=== PATIENT | female | born 1945 | race Caucasian/White ===

== ENCOUNTER 2018-08-03 01:55 | Outpatient (CLI) | payer MEDICARE, BC, SELFPAY ==
--- NOTE | 2018-08-03 15:40 | DI.US_ITS ---
SYMPTOM/DIAGNOSIS: NODULE TO POSTERIOR RT NECK, R22.1 SOFT TISSUE ULTRASOUND OF NECK: The study reveals an avascular cystic lump in the left neck measuring 9 by 8 by 3 mm. There is an apparent tract leading from this cystic nodule to the skin surface. The findings would be most consistent with a small sebaceous cyst. These findings to be correlated with the patient's clinical status.
== END 2018-08-03 02:15 ==
PROVIDERS: PCP Nurse Practitioner Family; Visit Provider Nurse Practitioner Family
DX: R22.1 Localized swelling, mass and lump, neck (principal); L72.3 Sebaceous cyst
CPT/HCPCS: 76536

== ENCOUNTER 2018-09-01 14:47 | Outpatient (CLI) | payer MEDICARE, BC, SELFPAY ==
--- NOTE | 2018-09-01 14:06 | DI.RAD_ITS ---
SYMPTOMS/DIAGNOSIS: F/U LEFT TOTAL KNEE ARTHROPLASTY LEFT KNEE: Comparison is made with August,. There has been no change in the total knee prosthesis or surrounding bone.
== END 2018-09-01 15:07 ==
PROVIDERS: PCP Nurse Practitioner Family; Visit Provider Student in an Organized Health Care Education/Training Program
DX: M17.12 Unilateral primary osteoarthritis, left knee (principal); Z96.652 Presence of left artificial knee joint; Z47.1 Aftercare following joint replacement surgery
CPT/HCPCS: 20610; 99212; 99213; 73560; J1040

== ENCOUNTER → 2019-02-25 09:38 | Outpatient (BNVA) | payer MEDICARE, BC, SELFPAY | PROVIDERS: Referring Provider Nurse Practitioner Family; Visit Provider Student in an Organized Health Care Education/Training Program | DX: M17.11 Unilateral primary osteoarthritis, right knee (principal); M25.561 Pain in right knee | CPT/HCPCS: 20610; 99213; J1040 ==

== ENCOUNTER → 2019-05-17 08:38 | Outpatient (BNVA) | payer MEDICARE, BC, SELFPAY | PROVIDERS: PCP Nurse Practitioner Family; Referring Provider Nurse Practitioner Family; Visit Provider Nurse Practitioner Gerontology | DX: R31.29 Other microscopic hematuria (principal) | CPT/HCPCS: 81003; 99213 ==

== ENCOUNTER 2019-05-17 11:54 | Outpatient (REF) | payer MEDICARE, BC, SELFPAY ==
[2019-05-17 14:20] LABS: Bilirubin Negative (Negative); Blood Moderate (Negative); Clarity Clear (Clear); Glucose Negative (Negative); Ketones Negative (Negative); Leukocyte Esterase Negative (Negative); Nitrite Negative (Negative); Urobilinogen 0.2 EU/dL (Up TO 0.2); pH 5.5 (5-8)
[2019-05-17 14:27] LABS: Bacteria Few HPF (Negative); C & S Indicated? No; Casts Negative LPF (Negative); Crystals Negative HPF (Negative); Epithelial Cells Few HPF (Negative); Mucus Trace (Negative); WBC 0-2 HPF (0-5)
== END 2019-05-17 12:14 ==
LOC: LBN 11:54
PROVIDERS: PCP Nurse Practitioner Family; Visit Provider Nurse Practitioner Gerontology
DX: R31.29 Other microscopic hematuria (principal)
CPT/HCPCS: 81003; 81015

== ENCOUNTER 2019-09-19 02:33 | Outpatient (CLI) | payer MEDICARE, BC, SELFPAY ==
[2019-09-19 10:43] LABS: Bilirubin Negative (Negative); Blood Small (Negative); Clarity Clear (Clear); Glucose Negative (Negative); Ketones Negative (Negative); Leukocyte Esterase Negative (Negative); Nitrite Negative (Negative); Urobilinogen 0.2 EU/dL (Up TO 0.2)
[2019-09-19 10:58] LABS: Hemoglobin A1C 6.1 % (3.8-5.6)
[2019-09-19 11:06] LABS: Epithelial Cells Rare HPF (Negative); WBC Negative HPF (0-5)
[2019-09-19 11:07] LABS: Bacteria Negative HPF (Negative); C & S Indicated? No; Casts Negative LPF (Negative); Crystals Negative HPF (Negative); Mucus Negative (Negative); Other Cells Rare Transitional (Negative)
[2019-09-19 12:07] LABS: ALT 23 U/L (14-59); AST 19 U/L (15-37); Albumin 3.9 g/dL (3.4-5.0); Alkaline Phosphatase 79 U/L (46-116); Anion Gap 9.7 mmol/L (3-11); BUN 14 mg/dL (7-18); Bilirubin, Total 1.1 mg/dL (0.2-1.0); CO2 28.3 mmol/L (21.0-32.0); CREATININE 0.66 mg/dL (0.55-1.02); Calcium 9.4 mg/dL (8.5-10.1); Calculated LDL 135 mg/dL (<100); Chloride 103 mmol/L (98-107); Cholesterol 218 mg/dL (<200); Glucose 101 mg/dL (74-106); HDL Cholesterol 68 mg/dL (40-60); Potassium 4.4 mmol/L (3.5-5.1); Sodium 141 mmol/L (136-145); Total Protein 7.1 g/dL (6.4-8.2); Triglyceride 77 mg/dL (<150)
== END 2019-09-19 02:53 ==
PROVIDERS: PCP Nurse Practitioner Family; Visit Provider Nurse Practitioner Family
DX: R73.03 Prediabetes (principal); R31.29 Other microscopic hematuria; R79.89 Other specified abnormal findings of blood chemistry
CPT/HCPCS: 36415; 80053; 80061; 81003; 81015; 83036

== ENCOUNTER 2020-02-22 01:55 | Outpatient (CLI) | payer MEDICARE, BC, SELFPAY ==
--- NOTE | 2020-02-22 16:05 | DI.MAMMO_ITS ---
EXAM: MAMMO SCREENING CLINICAL HISTORY: screening, Z12.39 TECHNIQUE: Mammograms were interpreted according to the usual protocol including computer analysis w [employer] CAD system, tomosynthesis and C-view imaging. COMPARISON: 2010 through 2017 FINDINGS: The breasts are composed of heterogeneously dense fibroglandular densities, Breast Density category C . Right breast: No suspicious masses or suspicious microcalcifications are seen. No skin thickening or abnormal axillary lymph nodes are seen. There has been no significant change from prior exams. Left breast: There is asymmetric a density in the superior left breast. There are no associated calc ifications. No adenopathy or skin thickening is seen. Spot compression view is recommended for furt her evaluation. An ultrasound may also be indicated at that time. IMPRESSION: BI-RADS Category 0 - Assessment Incomplete: Need additional imaging evaluation Breast Density Category C, heterogeneously dense tissue which decreases the sensitivity of the mammog lilliana. The mammogram demonstrates the patient's breast tissue is dense. Dense breast tissue is very common a nd is not abnormal but dense breast tissue can make it harder to find cancer on a mammogram. Also, de nse breast tissue may increase breast cancer risk. This information about the result of the mammogram report was provided to the patient to raise their awareness. Use this report when you speak with the patient about their risks for breast cancer, which includes their family history. At that time, you may recommend additional screening tests (Ultrasound or MRI) as they might be useful based on their r isk. A negative radiographic report should not delay biopsy if a dominant or clinically suspicious mass is present. Up to ten percent of cancers are not identified on mammography. A negative report may reinforce clinical impression. Adenosis and dense breasts may obscure an underlying neoplasm. False positive reports average 6 to 10%.
--- NOTE | 2020-02-22 16:24 | DI.DEXA_ITS ---
EXAM: XR DEXA BONE DENSITY W/WO JORGE CLINICAL HISTORY: hx of osteopenia,last dexa 2008 TECHNIQUE: [employer] C densitometer. COMPARISON: No exams were available for comparison FINDINGS: The lateral view of the thoracic and lumbar spine shows no evidence of compression fractures. The bone mineral density measurements of the lumbar spine correspond to a total T-score of -2.4, cons istent with osteopenia. The bone mineral density measurements of the left hip correspond to a total T-score -1.4 and a femora l neck T-score of -1.7, in the osteopenic range. The bone mineral density measurements of the left forearm correspond to a total T-score of -2.0 and a T-score of the distal 3rd of -1.8, consistent with osteopenia. IMPRESSION: Osteopenia of the lumbar spine, left hip and left forearm.
== END 2020-02-22 02:15 ==
PROVIDERS: PCP Nurse Practitioner Family; Visit Provider Nurse Practitioner Family
DX: Z12.31 Encounter for screening mammogram for malignant neoplasm of breast (principal); R92.8 Other abnormal and inconclusive findings on diagnostic imaging of breast; M85.88 Other specified disorders of bone density and structure, other site; Z78.0 Asymptomatic menopausal state
CPT/HCPCS: 77063; 77067; 77080

== ENCOUNTER 2020-02-27 09:52 | Outpatient (CLI) | payer MEDICARE, BC, SELFPAY ==
--- NOTE | 2020-02-27 | DI.MAMMO_ITS ---
EXAM: MG MAMMO SCREEN CALL BACK UNI and U/S breast LT limited CLINICAL HISTORY: F/U MAMMO, ASYMMETRIC DENSITY LT BREAST. TECHNIQUE: Craniocaudal and mediolateral oblique Full Field Digital Mammography views of the left br east with Computer Aided Diagnosis followed by Tomosynthesis and left breast ultrasound. COMPARISON: Priors available for comparison FINDINGS: Mammography/Tomosynthesis: Masses/Architectural Distortion: None seen. Microcalcifictions: No suspicious pleomorphic-type are seen. Skin Thickening/Nipple Retraction: None. Left breast US: Echotexture: Normal appearance of the glandular tissue. Shadowing: No suspicious foci. Cyst: None. Solid lesions: None seen. Ductal dilation: None. IMPRESSION: 1. No evidence of malignancy is noted. 2. Six-month follow-up left mammogram is recommended for re-evaluation. 3. The findings were discussed with the patient on the date of the examination. BI-RADS Category 3 - 6 month - Probably Benign Finding: Recommend follow-up mammography in 6 months Breast Density - Category C - Heterogeneously dense The mammogram demonstrates the patient's breast tissue is dense. Dense breast tissue is very common a nd is not abnormal but dense breast tissue can make it harder to find cancer on a mammogram. Also, de nse breast tissue may increase their breast cancer risk. This information about the result of the [facility] mogram report was provided to the patient to raise their awareness. Use this report when you speak wi th the patient about their risks for breast cancer, which includes their family history. At that time , you may recommend for more screening tests (Ultrasound or MRI) as they might be useful based on the ir risk. A negative radiographic report should not delay biopsy if a dominant or clinically suspicious mass is present. Up to ten percent of cancers are not identified on mammography. A negative report may reinforce clinical impression. Adenosis and dense breasts may obscure an underlying neoplasm. False positive reports average 6 to 10%. Patient will receive a letter notifying them of these results.
== END 2020-02-27 10:12 ==
PROVIDERS: PCP Nurse Practitioner Family; Visit Provider Nurse Practitioner Family
DX: Z12.31 Encounter for screening mammogram for malignant neoplasm of breast (principal); R92.8 Other abnormal and inconclusive findings on diagnostic imaging of breast; N64.59 Other signs and symptoms in breast
CPT/HCPCS: 76642; 77063; 77067

== ENCOUNTER → 2020-04-27 09:48 | Outpatient (BNVA) | payer MEDICARE, BC, SELFPAY | PROVIDERS: PCP Nurse Practitioner Family; Referring Provider Nurse Practitioner Family; Visit Provider Student in an Organized Health Care Education/Training Program | DX: M17.11 Unilateral primary osteoarthritis, right knee (principal) | CPT/HCPCS: 20610; 99213; J1040 ==

== ENCOUNTER → 2020-05-22 14:53 | Outpatient (BNVA) | payer MEDICARE, BC, SELFPAY | PROVIDERS: PCP Nurse Practitioner Family; Referring Provider Nurse Practitioner Family; Visit Provider Nurse Practitioner Gerontology | DX: R31.29 Other microscopic hematuria (principal) | CPT/HCPCS: 81003; 99213 ==

== ENCOUNTER 2020-05-22 16:27 | Outpatient (REF) | payer MEDICARE, BC, SELFPAY ==
[2020-05-22 16:49] LABS: Bilirubin Negative (Negative); Blood Small (Negative); Clarity Clear (Clear); Glucose Negative (Negative); Ketones Negative (Negative); Leukocyte Esterase Negative (Negative); Nitrite Negative (Negative); Specific Gravity 1.015 (1.005-1.025); Urobilinogen 0.2 EU/dL (Up TO 0.2)
[2020-05-22 16:56] LABS: Bacteria Rare HPF (Negative); C & S Indicated? No; Casts Negative LPF (Negative); Crystals Negative HPF (Negative); Epithelial Cells Negative HPF (Negative); Mucus Negative (Negative); Other Cells Negative (Negative); RBC 0-2 HPF (0-2); WBC Negative HPF (0-5)
== END 2020-05-22 16:47 ==
LOC: LBN 16:27
PROVIDERS: PCP Nurse Practitioner Family; Visit Provider Nurse Practitioner Gerontology
DX: R31.29 Other microscopic hematuria (principal)
CPT/HCPCS: 81003; 81015

== ENCOUNTER 2020-08-29 02:01 | Outpatient (CLI) | payer MEDICARE, BC, SELFPAY ==
--- NOTE | 2020-08-29 14:58 | DI.MAMMO_ITS ---
EXAM: MG MAMMO DIAGNOSTIC UNI CLINICAL HISTORY: 3-6 MO F/U ABNORMAL MAMMO,R92.8,Z09. TECHNIQUE: Unilateral spot mammographic images were obtained with [employer] and util izing computer aided detection (CAD). COMPARISON: Prior mammograms dating back to 2010, the most recent being February 2020. Ultrasound February 2020 was also reviewed FINDINGS: Previously described finding in the left breast is mammographically unchanged. Benign appearance. No malignant-appearing microcalcification groups. Skin mole again noted. IMPRESSION: Stable benign findings. No radiographic evidence of malignancy. Appropriate follow-up is to keep this patient yearly mammogram schedule, this implying there next radha ateral mammogram would be into all2020, with earlier imaging if a self detected breast change is no rosa.. BI-RADS Category 2 - Benign Findings Breast Density - Category C - Heterogeneously dense Breast density Category C or D implies that the patient has dense breast tissue. Dense breast tissue can make it harder to find cancer on a mammogram. Dense breast tissue is also associated with an incr eased risk of breast cancer. This information about the result of the mammogram report was provided to the patient to raise their awareness. Use this report when you speak with the patient about their risks for breast cancer, which includes their family history. At that time, you may recommend additional screening tests (Ultrasoun d or MRI) as these tests may add significant information. A negative radiographic report should not delay biopsy if a dominant or clinically suspicious mass is present. Up to ten percent of cancers are not identified on mammography. A negative report may reinforce clinical impression. Adenosis and dense breasts may obscure an underlying neoplasm. False positive reports average 6 to 10%. Patient will receive a letter notifying them of these results.
== END 2020-08-29 02:21 ==
PROVIDERS: PCP Nurse Practitioner Family; Visit Provider Nurse Practitioner Family
DX: R92.8 Other abnormal and inconclusive findings on diagnostic imaging of breast (principal)
CPT/HCPCS: 77061; 77065; G0279

== ENCOUNTER 2020-11-01 10:26 | Outpatient (CLI) | payer MEDICARE, BC, SELFPAY ==
--- NOTE | 2020-11-01 09:45 | DI.RAD_ITS ---
EXAM: XR HIP RT COMPLETE AP PELVIS CLINICAL HISTORY: R hip pain. TECHNIQUE: 2D digital imaging was performed. COMPARISON: CR XR DEXA BONE DENSITY W/WO JORGE from 02/22/2020 FINDINGS: No evidence of pelvic or hip fracture. No obvious degenerative changes in the hips. Osteitis symphy sis pubis incidentally noted. IMPRESSION: DATA REPOSITORY: RADIATION DOSE DELIVERED:
== END 2020-11-01 10:27 | disposition home or self-care (01) ==
LOC: DIORS 10:26
PROVIDERS: PCP Nurse Practitioner Family; Referring Provider Nurse Practitioner Family; Visit Provider Student in an Organized Health Care Education/Training Program
DX: M25.551 Pain in right hip (principal); M70.61 Trochanteric bursitis, right hip
CPT/HCPCS: 99213; 73502

== ENCOUNTER → 2021-01-22 13:37 | Outpatient (BNVA) | payer MEDICARE, BC, SELFPAY | PROVIDERS: PCP Nurse Practitioner Family; Referring Provider Nurse Practitioner Family; Visit Provider Physician Assistant | DX: M17.11 Unilateral primary osteoarthritis, right knee (principal) | CPT/HCPCS: 20610; J1040 ==

== ENCOUNTER → 2021-05-28 15:24 | Outpatient (BNVA) | payer MEDICARE, BC, SELFPAY | PROVIDERS: PCP Nurse Practitioner Family; Referring Provider Nurse Practitioner Family; Visit Provider Nurse Practitioner Gerontology | DX: R31.29 Other microscopic hematuria (principal) | CPT/HCPCS: 81003; 99213 ==

== ENCOUNTER 2021-05-28 18:35 | Outpatient (REF) | payer MEDICARE, BC, SELFPAY ==
[2021-05-28 20:14] LABS: Bilirubin Negative (Negative); Blood Small (Negative); Clarity Clear (Clear); Glucose Negative (Negative); Ketones Negative (Negative); Leukocyte Esterase Negative (Negative); Nitrite Negative (Negative); Urobilinogen 0.2 EU/dL (Up TO 0.2); pH 6.5 (5-8)
[2021-05-28 20:29] LABS: Bacteria Negative HPF (Negative); C & S Indicated? No; Crystals Negative HPF (Negative); Epithelial Cells Negative HPF (Negative); Mucus Negative (Negative); RBC 0-2 HPF (0-2); WBC Negative HPF (0-5)
== END 2021-05-28 18:36 | disposition home or self-care (01) ==
LOC: LBN 18:35
PROVIDERS: PCP Nurse Practitioner Family; Visit Provider Nurse Practitioner Gerontology
DX: R31.29 Other microscopic hematuria (principal)
CPT/HCPCS: 81003; 81015

== ENCOUNTER → 2021-10-07 09:03 | Outpatient (BNVA) | payer MEDICARE, BC, SELFPAY | PROVIDERS: PCP Nurse Practitioner Family; Referring Provider Nurse Practitioner Family | DX: M17.11 Unilateral primary osteoarthritis, right knee (principal) | CPT/HCPCS: 20610; J1040 ==

== ENCOUNTER 2021-11-15 03:01 | Outpatient (CLI) | payer MEDICARE, BC, SELFPAY ==
[2021-11-15 14:05] LABS: Hemoglobin A1C 6.1 % (<5.7)
[2021-11-15 14:44] LABS: Anion Gap 6.9 mmol/L (3-11); BUN 13 mg/dL (7-18); CO2 28.1 mmol/L (21.0-32.0); CREATININE 0.6 mg/dL (0.55-1.02); Chloride 103 mmol/L (98-107); Glucose 95 mg/dL (74-106); Potassium 4.2 mmol/L (3.5-5.1); Sodium 138 mmol/L (136-145)
== END 2021-11-15 03:02 | disposition home or self-care (01) ==
PROVIDERS: PCP Nurse Practitioner Family; Visit Provider Nurse Practitioner Family
DX: R73.03 Prediabetes (principal)
CPT/HCPCS: 36415; 80048; 83036

== ENCOUNTER → 2022-04-09 01:36 | Outpatient (CLI) | payer MEDICARE, BC, SELFPAY ==
--- NOTE | 2022-04-09 16:13 | DI.MAMMO_ITS ---
Exam(s) MAMMO SCREENING EXAM: MAMMO SCREENING CLINICAL HISTORY: screening,z12.39 TECHNIQUE: Mammograms were interpreted according to the usual protocol including computer analysis w [employer] CAD system, tomosynthesis and C-view imaging. COMPARISON: FINDINGS: The breasts are heterogeneously dense. No dominant mass or clumped microcalcification is identified in either breast. The current examination is compared with previous examinations including February 2020 and there has been no gross interval change in appearance in comparison with the prior studies. IMPRESSION: No specific evidence of malignancy at this time. Routine 6 screening examinations are suggested at y early intervals due to the family history of breast carcinoma. Because of the high density of the breasts and the strong family history of breast carcinoma, additio nal screening with breast MRI or screening breast ultrasound could be considered. BI-RADS Category 1 - Negative Breast Density - Category C - Heterogeneously dense
== END ==
PROVIDERS: PCP Nurse Practitioner Family; Visit Provider Family Medicine
DX: Z12.31 Encounter for screening mammogram for malignant neoplasm of breast (principal); R92.8 Other abnormal and inconclusive findings on diagnostic imaging of breast
CPT/HCPCS: 77063; 77067

== ENCOUNTER → 2022-05-19 08:01 | Outpatient (BNVA) | payer MEDICARE, BC, SELFPAY | PROVIDERS: PCP Nurse Practitioner Family; Referring Provider Nurse Practitioner Family; Visit Provider Physician Assistant | DX: M17.11 Unilateral primary osteoarthritis, right knee (principal) | CPT/HCPCS: 20610; J1040 ==

== ENCOUNTER → 2022-06-03 15:19 | Outpatient (BNVA) | payer MEDICARE, BC, SELFPAY | PROVIDERS: PCP Nurse Practitioner Family; Referring Provider Nurse Practitioner Family; Visit Provider Nurse Practitioner Gerontology | DX: R31.29 Other microscopic hematuria (principal) | CPT/HCPCS: 81003; 99214 ==

== ENCOUNTER → 2022-10-15 08:55 | Outpatient (BNVA) | payer MEDICARE, BC, SELFPAY | PROVIDERS: PCP Nurse Practitioner Family; Referring Provider Nurse Practitioner Family; Visit Provider Physician Assistant | DX: M17.11 Unilateral primary osteoarthritis, right knee (principal) | CPT/HCPCS: 20610; J1040 ==

== ENCOUNTER → 2023-03-26 14:10 | Outpatient (BNVA) | payer MEDICARE, BC, SELFPAY | PROVIDERS: PCP Nurse Practitioner Family; Referring Provider Nurse Practitioner Family | DX: M17.11 Unilateral primary osteoarthritis, right knee (principal) | CPT/HCPCS: 20610; J1040 ==

== ENCOUNTER 2023-03-27 02:40 | Outpatient (CLI) | payer MEDICARE, BC, SELFPAY ==
[2023-03-27 09:59] LABS: Hemoglobin A1C 5.9 % (<5.7)
[2023-03-27 10:00] LABS: Anion Gap 11.3 mmol/L (3-11); BUN 14 mg/dL (7-18); CO2 23.7 mmol/L (21.0-32.0); CREATININE 0.9 mg/dL (0.55-1.02); Calcium 9.7 mg/dL (8.5-10.1); Calculated LDL 181 mg/dL (<100); Chloride 101 mmol/L (98-107); Cholesterol 277 mg/dL (<200); Estimated GFR 65.84 (mL/min/1.73m2); Glucose 143 mg/dL (74-106); HDL Cholesterol 82 mg/dL (40-60); Potassium 3.9 mmol/L (3.5-5.1); Sodium 136 mmol/L (136-145); Triglyceride 71 mg/dL (<150)
[2023-03-30 10:29] LABS: Hepatitis C Ab w Rflx HCV PCR Negative (Negative)
== END 2023-03-27 02:41 | disposition home or self-care (01) ==
LOC: LBO 02:40
PROVIDERS: PCP Nurse Practitioner Family; Visit Provider Nurse Practitioner Family
DX: E78.5 Hyperlipidemia, unspecified (principal); R73.03 Prediabetes; Z11.59 Encounter for screening for other viral diseases
CPT/HCPCS: 36415; 80048; 80061; 86803; 83036

== ENCOUNTER → 2023-04-16 00:09 | Outpatient (CLI) | payer MEDICARE, BC, SELFPAY ==
--- NOTE | 2023-04-16 07:45 | DI.DEXA_ITS ---
Exam(s) XR DEXA BONE DENSITY W/WO JORGE EXAM: XR DEXA BONE DENSITY W/WO JORGE CLINICAL HISTORY: Osteopenia, POSTMENOPAUSAL STATUS, Z78.0 TECHNIQUE: COMPARISON: CR XR DEXA BONE DENSITY W/WO JORGE from 02/22/2020 FINDINGS: Lateral Spine Image: Unremarkable. No compression deformities identified. Left hip: Total T-Score: -1.5. This compares to -1.4 on the prior examination. Total Z-Score: 0.4 T- and Z-scores: Findings are consistent with osteopenia. Lumbar Spine: Total T-Score: -2.5. This compares to -2.6 on the prior examination. Total Z-Score: 0.0 T- and Z-scores: Findings are consistent with osteoporosis. IMPRESSION: Osteoporosis in the lumbar spine.
== END ==
PROVIDERS: PCP Nurse Practitioner Family; Visit Provider Nurse Practitioner Family
DX: Z78.0 Asymptomatic menopausal state (principal); Z13.820 Encounter for screening for osteoporosis; M81.0 Age-related osteoporosis without current pathological fracture
CPT/HCPCS: 77080

== ENCOUNTER → 2023-05-21 11:30 | Outpatient (CLI) | payer MEDICARE, BC, SELFPAY ==
--- NOTE | 2023-05-21 09:15 | DI.RAD_ITS ---
Exam(s) XR HIP LT COMPLETE AP PELVIS EXAM: XR HIP LT COMPLETE AP PELVIS CLINICAL HISTORY: acute pain after fall,lt hip, m25.552. TECHNIQUE: 2D digital imaging was performed. COMPARISON: CR XR HIP RT COMPLETE AP PELVIS from 11/01/2020 FINDINGS: Two views. No evidence of pelvic nor hip fracture. No significant hip joint space narrowing. Additional latera l view of the left hip does not reveal osteophytes. Bone density normal. No osseous lesions. Osteitis symphysis pubis again noted, unchanged. IMPRESSION: No new osseous findings in the pelvis and hips. DATA REPOSITORY: RADIATION DOSE DELIVERED:
--- NOTE | 2023-05-21 09:15 | DI.RAD_ITS ---
Exam(s) XR KNEE LT 3V AP,LAT,MAGNO EXAM: XR KNEE LT 3V AP,LAT,MAGNO CLINICAL HISTORY: acute pain after fall,m25.562. TECHNIQUE: 2D digital imaging was performed. COMPARISON: CR XR knee LT 2V AP,lat from 09/01/2018 FINDINGS: 3 views Stable position alignment of the components of the prosthesis. No fracture or loosening evident. IMPRESSION: Stable satisfactory appearance. DATA REPOSITORY: RADIATION DOSE DELIVERED:
== END ==
PROVIDERS: PCP Nurse Practitioner Family; Visit Provider Nurse Practitioner Family
DX: M25.552 Pain in left hip (principal); M25.562 Pain in left knee; W19.XXXA Unspecified fall, initial encounter
CPT/HCPCS: 73562; 73502

== ENCOUNTER → 2023-06-02 15:16 | Outpatient (BNVA) | payer MEDICARE, BC, SELFPAY | PROVIDERS: PCP Nurse Practitioner Family; Visit Provider Nurse Practitioner Gerontology | DX: R31.29 Other microscopic hematuria (principal) | CPT/HCPCS: 81003; 99213 ==

== ENCOUNTER 2023-06-02 15:56 | Outpatient (REF) | payer MEDICARE, BC, SELFPAY ==
[2023-06-02 17:19] LABS: Bilirubin Negative (Negative); Blood Small (Negative); Clarity Clear (Clear); Glucose Negative (Negative); Ketones Negative (Negative); Leukocyte Esterase Negative (Negative); Nitrite Negative (Negative); Specific Gravity 1.015 (1.005-1.025); Urobilinogen 0.2 mg/dL (Up to 0.2)
[2023-06-02 17:38] LABS: Bacteria Negative HPF (Negative); C & S Indicated? No; Casts Negative LPF (Negative); Crystals Negative HPF (Negative); Epithelial Cells Rare HPF (Negative); Mucus Negative (Negative); WBC 0-2 HPF (0-5)
== END 2023-06-02 15:57 | disposition home or self-care (01) ==
LOC: LBN 15:56
PROVIDERS: PCP Nurse Practitioner Family; Visit Provider Nurse Practitioner Gerontology
DX: R31.29 Other microscopic hematuria (principal)
CPT/HCPCS: 81003; 81015

== ENCOUNTER → 2023-06-09 01:01 | Outpatient (CLI) | payer MEDICARE, BC, SELFPAY ==
--- NOTE | 2023-06-09 08:00 | DI.US_ITS ---
Exam(s) US RENAL EXAM: US RENAL CLINICAL HISTORY: hematuria,r31.29. TECHNIQUE: Rea scale, color and spectral Doppler were used. COMPARISON: CT RENAL COLIC WO CONTRAST from 10/30/2016 FINDINGS: Renal size in cm: Right: Left: Echogenicity: Normal Hydronephrosis: No Cyst or mass: No Nephrolithiasis: 4 millimeter echogenic focus mid right kidney, stone versus artifact. Bladder:Normal. Both ureteral jets were visualized. Prevoid vol: 167 cc Postvoid vol:17 cc IMPRESSION: Question of small right renal calculus versus artifact. DATA REPOSITORY:
== END ==
PROVIDERS: PCP Nurse Practitioner Family; Visit Provider Nurse Practitioner Gerontology
DX: R31.29 Other microscopic hematuria (principal); R93.429 Abnormal radiologic findings on diagnostic imaging of unspecified kidney
CPT/HCPCS: 76770

== ENCOUNTER 2023-08-21 11:34 | Outpatient (CLI) | payer MEDICARE, BC, SELFPAY ==
--- NOTE | 2023-08-21 11:00 | DI.RAD_ITS ---
Exam(s) XR KNEE RT 2V AP,LAT XR STANDING ALIGNMENT EXAM: XR STANDING ALIGNMENT CLINICAL HISTORY: TKR planning. TECHNIQUE: 2D digital imaging was performed. Standing AP views were performed from the pelvis throu gh the ankles. AP and lateral views of the right knee. COMPARISON: CR BONE LENGTH from 09/09/2017 CR XR KNEE LT 3V AP,LAT,MAGNO from 05/21/2023 CR XR KNEE RT 2V AP,LAT from 08/21/2023 FINDINGS: BONES: No acute fracture is present. No bony destructive lesion is seen. Leg length discrepancy: Minimal JOINTS: Knees: No change in appearance of left total knee prosthesis. The right knee shows mild medi al femoral tibial joint space narrowing and periarticular spurring. There is mild spurring at the ar ticular aspect of the patella. The ankle joints are unremarkable. The hip joints are unremarkable. SOFT TISSUE: Normal. IMPRESSION: Mild degenerative changes of the right knee. Left knee prosthesis is unremarkable. No significant leg length discrepancy. DATA REPOSITORY: RADIATION DOSE DELIVERED:
== END 2023-08-21 11:35 | disposition home or self-care (01) ==
LOC: DIORS 11:34
PROVIDERS: PCP Nurse Practitioner Family; Referring Provider Nurse Practitioner Family
DX: M17.11 Unilateral primary osteoarthritis, right knee (principal)
CPT/HCPCS: 20610; 73560; 77073; J1040

== ENCOUNTER → 2023-09-10 09:53 | Outpatient (BNVA) | payer MEDICARE, BC, SELFPAY | PROVIDERS: PCP Nurse Practitioner Family; Referring Provider Nurse Practitioner Family; Visit Provider Physical Therapy Assistant | DX: Z12.11 Encounter for screening for malignant neoplasm of colon (principal); Z86.010 Personal history of colon polyps ==

== ENCOUNTER 2023-09-28 06:53 | Day surgery (SDC) | payer MEDICARE, BC, SELFPAY ==
--- NOTE | 2023-09-27 16:11 | W.PM.DSUDISC ---
Date of service: 09/28/23 Time of Service: 08:12 Discharge Plan Disposition Patient Disposition: Home Condition: Good Discharge Details Reason For Visit: cystoscopy Attending Provider: Getachew Zavala Primary Care Provider: Edel Levin Home Meds and New Rx's Prescriptions: Continued esomeprazole magnesium [Nexium] 20 mg capsule,delayed release(DR/EC) 20 mg PO DAILY PRN naproxen sodium [Aleve] 220 mg capsule 220 mg PO BID PRN alendronate [Fosamax] 70 mg tablet 70 mg PO QWEEK Qty: 15 3RF zolpidem 5 mg tablet 2.5 mg PO QHS PRN (Reason: sleep) Qty: 30 0RF simethicone [Gas-X Extra Strength] 125 MG tablet,chewable 125 mg PO PRN PRN ibuprofen [Advil] 200 mg tablet 200 mg PO TID-QID PRN Discontinued bisacodyl [Dulcolax (bisacodyl)] 5 mg tablet,delayed release (DR/EC) 5 mg PO ONCE Qty: 4 0RF Rx Instructions: Take per colonoscopy instructions provided by ordering providers office polyethylene glycol 3350 17 gram/dose powder 17 g PO ONCE Qty: 238 0RF Rx Instructions: Take per colonoscopy instructions provided by ordering providers office Discharge Instructions Instructions: Diverticulosis (GEN), Colorectal Polyps (GEN), Diverticulosis Diet (GEN) Additional Instructions: Followup 1 year for urinalysis Activity:: Activity as Tolerated Diet:: As Tolerated Discharge Orders Discharge Orders: Discharge Order (Routine); Ordered 09/27/23 Ordered By: Nilay Heath DS: Diagnosis Discharge Diagnosis (1) Encounter for screening colonoscopy: Status: Acute Asessment and Plan: Follow-up on polyp results
--- NOTE | 2023-09-27 16:12 | COLE_ITS ---
Date of service: 09/28/23 Time of Service: 08:48 Colonoscopy Report Date of procedure: 09/28/23 Pre-op diagnosis general: screening colonoscopy Post-op diagnosis procedure note: other (Diverticulosis, colon polyp) Procedure: Colonoscopy Surgeon: Nilay Heath Anesthesia Type: General:No Airway Estimated blood loss (mL): 5 Pathology: other (0.25 cm flat polyp at 20 cm from the anus) Complications: None Disposition: same day Indications: Ijeoma is a 78 year old woman who needs a screening colonoscopy Prep: Miralax/Dulcolax Procedure Start Time: :48 Procedure End Time: 08:07 Retraction Time: 9 Findings: Diverticulosis, 0.25 cm polyp at 20 cm from the anus Procedure Description: General anesthesia was induced, and the patient was moved into lithotomy position for the cystoscopy procedure that would follow the colonoscopy. Great care was taken to pad the patient appropriately. I began by performing an external anorectal exam.? Perineum and skin were normal, as was the anal verge.? There was no evidence of external hemorrhoids.? Next, I performed a digital rectal exam.? I did not appreciate any abnormal findings.? Next, I advanced a colonoscope into the rectal vault.? I performed retroflexion.? This appeared normal.? Using insufflation, I then advanced the colonoscope beyond the rectal folds and into the sigmoid colon before advancing towards the cecum.? There was mostly sigmoid diverticulosis, but it did extend into the descending colon as well. Some scattered diverticula were also seen in the ascending colon.? The scope was noted to be in the cecum by identification of the ileocecal valve and appendiceal orifice.? I then began withdrawing the colonoscope using repeated irrigation as necessary for full evaluation of the colonic mucosa. Around 20 cm from the anal verge was a flat polyp. It was less than 0.25 cm in its greatest dimension. I removed it with cold forceps with minimal bleeding. ?Once the scope was withdrawn to the level of the rectum, great care was taken to examine portions of the rectal folds.? I then withdrew the colonoscope, and turned the care of the patient over to Dr. Zavala who would perform a separate cystoscopy procedure. Details that procedure can be found under his report. [place] Bowel Prep [place] Bowel Prep Right Colon: 3 Left Colon: 3 Transverse Colon: 3 Total Score: 9
[2023-09-28 06:39] VITALS: BP 151/81; PULSE 75; RESP 16; TEMP 36.8; O2SAT 98
--- NOTE | 2023-09-28 06:44 | W.PM.HP.N ---
Date of service: 09/28/23 Time of Service: 06:45 Assessment and Plan Assessment and plan (1) Microscopic hematuria: Status: Chronic Assessment and plan: We will complete her workup with cystoscopy and bilateral retrograde pyelogram History of Present Illness History of Present Illness Chief Complaint: Microscopic hematuria Narrative: This is a 78 year old woman who has a history of microscopic hematuria. He previous workup in 2018 showed no uropathology. She has had persistent microscopic hematuria since then. She has no gross hematuria. She has no history of kidney stones. She does have a history of tobacco exposure. She had a renal US in 06/08 that showed a possible nonobstructing right renal stone, but no masses. She presents for cystoscopy. Review of Systems Narrative: No fevers or chills No vision change or dysphasia No diabetes or thyroid dysfunction No shortness of breath, cough or hemoptysis No chest pain or palpitations No nausea, vomiting, hepatitis, ulcers, jaundice No seizures, strokes or peripheral neuropathy No bleeding disorders or anemia No gout PFSH All Active Problems Encounter for screening colonoscopy (Acute) Osteoporosis (Chronic) Dexa 2022, fosamax started 04/2023 Prediabetes (Chronic) Hyperlipidemia (Chronic) Insomnia (Chronic) Microscopic hematuria (Chronic) Negative cystocopy 02/2018. 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 Brother Alcohol abuse Brother No problems noted. Son No problems noted. Daughter No problems noted. Maternal Grandfather No problems noted. Maternal Grandmother Neoplasm Unknown type Type 2 diabetes mellitus Paternal Grandfather Neoplasm Unknown type Paternal Grandmother Neoplasm Unknown type Social History Smoking/Tobacco Use Status: Former Tobacco Use tobacco type: cigarettes Quit Date: 08/17/94 Second Hand Exposure: Yes Smoking risk assessment performed?: Yes Alcohol Intake: current Alcohol Intake frequency: 0-2 drinks per day Alcohol type: hard liquor Drug use: Never Substance use type: does not use Caregiver/Support person: No Household members: spouse Housing: house Communication Needs: None Do you need help understanding health information?: Never Pets and animals: No Sexually active: Yes Do you think of yourself as: straight/heterosexual Current gender identity: female What is your relationship status?: How often do you talk on the phone with friends or family?: three or more times per week How often do you get together with friends or relatives?: three or more times per week How often do you attend jewish or oriental orthodox services?: decline to answer Do you belong to any clubs or organized social groups?: yes Panel score (0-1 are the most socially isolated patients): 3 What type of physical activity do you participate in: walking and other Details: Water arobics Duration: 30-45 minutes/day Frequency: 5-6 times per week Rosalba/Religious: No preference Special rosalba needs: No Seatbelt use: always Drive intox or ride w/intox otr driver: No Additional Social history: Unable to assess privately Female Reproductive History Menstrual Menopause type: natural History History 2 Para 2 Hx # Term Pregnancies Multiple births Hx # Pregnancies Ectopic pregnancies AB induced Hx Number of Living Children 2 AB spontaneous Meds Allergies and Home Medications Allergies Allergy/AdvReac Type Severity Reaction Status Date / Time naproxen AdvReac Intermediate GI UPSET, Verified 09/28/23 06:32 DIDNT FEEL WELL ON IT temazepam AdvReac Intermediate headache Verified 09/28/23 06:32 Home Medications Medication Instructions Recorded Confirmed Type simethicone 125 mg chewable tablet 125 mg PO PRN PRN 08/19/17 09/28/23 History (Gas-X Extra Strength) esomeprazole magnesium 20 mg 20 mg PO DAILY PRN 01/23/20 09/28/23 History capsule,delayed release (Nexium) naproxen sodium 220 mg capsule 220 mg PO BID PRN 05/19/22 09/28/23 History (Aleve) alendronate 70 mg tablet (Fosamax) 70 mg PO QWEEK #15 tabs 04/30/23 09/28/23 Rx zolpidem 5 mg tablet 2.5 mg (1/2 x 5 mg) PO QHS PRN 09/21/23 09/28/23 Rx sleep #30 tabs ibuprofen 200 mg tablet (Advil) 200 mg PO TID-QID PRN 09/24/23 09/28/23 History Exam Const General: cooperative Neck Neck: supple Resp Effort & Inspection: normal respiratory effort Auscultation: clear to auscultation bilaterally Cardio Rate: regular rate Rhythm: regular rhythm GI Palpation: soft and no masses Neuro General: patient alert, patient awake and patient oriented x3 Time Spent Time spent with Patient: <40 minutes Time was spent: other
[2023-09-28] MEDS: Sulfameth/Trimeth DS TAB 1 TAB PO (06:53)
[2023-09-28] MEDS: Lactated Ringers 1,000 ML 80 ML IV (06:54)
--- NOTE | 2023-09-28 07:09 | W.ANESPRE ---
General Info Date of Service Date Performed: 09/28/23 Height: 5 ft 2 in Weight: 63.1 kg Body Mass Index (BMI): 25.4 Surgical Procedure: Operation Date: 09/28/23 10:25 Proposed Procedure Side Surgeon p Cystoscopy/Retrograde Bilateral Getachew Zavala MD s Colonoscopy Nilay Heath MD Meds Allergies and Home Medications Allergies Allergy/AdvReac Type Severity Reaction Status Date / Time naproxen AdvReac Intermediate GI UPSET, Verified 09/28/23 06:32 DIDNT FEEL WELL ON IT temazepam AdvReac Intermediate headache Verified 09/28/23 06:32 Home Medication Medication Instructions Recorded simethicone 125 mg chewable tablet 125 mg PO PRN PRN 08/19/17 (Gas-X Extra Strength) esomeprazole magnesium 20 mg 20 mg PO DAILY PRN 01/23/20 capsule,delayed release (Nexium) naproxen sodium 220 mg capsule 220 mg PO BID PRN 05/19/22 (Aleve) alendronate 70 mg tablet (Fosamax) 70 mg PO QWEEK #15 tabs 04/30/23 zolpidem 5 mg tablet 2.5 mg (1/2 x 5 mg) PO QHS PRN 09/21/23 sleep #30 tabs ibuprofen 200 mg tablet (Advil) 200 mg PO TID-QID PRN 09/24/23 Current Visit Medications: Current Medications Generic Name Dose Route Start Last Admin Trade Name Freq PRN Reason Stop Dose Admin Hyoscyamine Sulfate 0.125 mg 09/27/23 16:14 Hyoscyamine 0.125 Mg Sl/Oral/Chew SL 10/27/23 16:13 DIRECTED PRN Ringer's Solution 1,000 mls @ 80 mls/hr 09/28/23 06:00 09/28/23 06:54 IV 09/28/23 23:59 80 mls/hr INFUSION GINA Administration IV Miscellaneous Supplies 1 each 09/28/23 06:00 Iv Access IV 09/28/23 23:59 DIRECTED GINA Ondansetron HCl 4 mg 09/27/23 16:14 Ondansetron 4 Mg/2 Ml Vial IVP 10/27/23 16:13 Q4H PRN PRN Nausea / Vomiting Sodium Chloride 0 ml 09/28/23 06:00 Normal Saline Flush 10 Ml Syr IV 09/28/23 23:59 PRN PRN Sodium Chloride 0 ml 09/28/23 06:00 Normal Saline 10 Ml Vial IJ 09/28/23 23:59 DIRECTED PRN Sterile Water 0 ml 09/28/23 06:00 Water,Injection,Sterile 10 Ml Vial IJ 09/28/23 23:59 DIRECTED PRN Trimethoprim/Sulfamethoxazole 1 tab 09/28/23 06:00 09/28/23 06:53 Sulfameth/Trimeth Ds Tab PO 09/28/23 23:59 1 tab PREOP GINA Administration PFSH Active Problems Active Problems: Problem Status Onset Code Encounter for screening colonoscopy Z12.11 Osteoporosis M81.0 Prediabetes R73.03 Hyperlipidemia E78.5 Insomnia G47.00 Microscopic hematuria R31.29 Osteoarthritis of right knee M17.11 Trochanteric bursitis, right hip M70.61 Urinary, incontinence, stress female N39.3 Medical History Medical History Basal cell carcinoma Tubular adenoma of colon GERD (gastroesophageal reflux disease) Surgical History Surgical History S/P colonoscopy (01/25/18) S/P cystoscopy (02/15/18) S/P trigger finger release (01/12/18) Left thumb 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) Tobacco Smoking/Tobacco Use Status: Former Tobacco Use Passive smoking exposure: Yes Second hand exposure: Yes Alcohol Alcohol Intake: current Alcohol intake frequency: 0-2 drinks per day Alcohol type: hard liquor Substance Use Substance use: Never Substance use type: does not use Prental History History 2 Para 2 Hx # Term Pregnancies Multiple births Hx # Pregnancies Ectopic pregnancies AB induced Hx Number of Living Children 2 AB spontaneous Vital Signs and Lab Results Vital Signs Most Recent Vital Signs in EMR: Most Recent Vital Signs Temp Pulse Resp BP Pulse Ox 36.8 C 75 16 151/81 H 98 09/28/23 06:39 09/28/23 06:39 09/28/23 06:39 09/28/23 06:39 09/28/23 06:39 Lab Results Blood Type / Crossmatch: No Data to Display Complete Blood Count: No Data to Display Complete Metabolic Panel: No Data to Display Liver Function Panel: No Data to Display Coagulation Panel: No Data to Display Cardiac Panel: No Data to Display Arterial Blood Gas: No Data to Display Venous Blood Gas: No Data to Display Pancreas Panel: No Data to Display Thyroid Panel: No Data to Display Infectious Disease: No Data to Display Blood Cultures: No Data to Display Toxicology Panel: No Data to Display Anesthesia Assessment and Plan Anesthesia History Personal History: Delayed Emergence Family History: No Family History of Anesthesia Complications Exercise Tolerance Exercise Tolerance: Metabolic Equivalents>4 Pertinent Negatives Pertinent Negatives: No Symptoms of GERD, No Major Cardiovascular Symptoms or Complaints and No Major Pulmonary Symptoms or Complaints Cardiac & Pulmonary Exam Cardiac Exam: Normal S1/S2 Heart Sounds Pulmonary Exam: Clear Bilateral Breath Sounds Implantable Cardiac Device Does patient have a Pacemaker or an ICD?: No Airway Exam Known Difficult Airway: No Mallampati Class: 2 Mouth Opening: Normal (> 3cm) Thyromental Distance: Greater than 3 cm Neck Range of Motion: Full ROM Neck Circumference: Normal Teeth Condition: Normal Dentition ASA Classification ASA Score: ASA 2 Emergency Case?: No NPO Status NPO Status: NPO Clears >2 hours, Solids >8 hours Anesthesia Plan Resuscitation Status: Full Code Anesthesia Technique: General Anesthesia Airway Planned: Natural Airway Monitors Used: Standard Monitors
[2023-09-28 07:12] VITALS: BMI 25.4
--- NOTE | 2023-09-28 08:05 | BOWEL_PTH ---
PATIENT: Ijeoma Pat LOC: [facility] U#:[id number] AGE/SX: 78/F ROOM: RE09/28/[address]: Getachew Zavala MD : 1945 BED: DIS: 09/28/2023 SPEC #: [id number] RECD: 09/28/23 12:58 STATUS: OSMAN RE #: [id number] ZOEY: 09/28/23 08:[address]: Getachew Zavala DEPT: Surgical Specimen RECD BY: Vivian Burger ENTERED: 09/28/23 12:59 SP TYPE: Bowel OTHR DR: Edel Levin, GORDO Tissues: 1 - BIOPSY BOWEL Procedures: GROSS AND MICRO LEVEL 4 Comments: [id number]
[2023-09-28] MEDS: Lidocaine 2% Jelly 6 ML SYR (08:15)
[2023-09-28] MEDS: Omnipaque 300 MG/ML 50 ML BTL (08:15)
--- NOTE | 2023-09-28 08:34 | W.PM.DSUDISC ---
Date of service: 09/28/23 Time of Service: 08:35 Discharge Plan Disposition Patient Disposition: Home Condition: Good Discharge Details Reason For Visit: cystoscopy Attending Provider: Getachew Zavala Primary Care Provider: Edel Levin Home Meds and New Rx's Prescriptions: Continued esomeprazole magnesium [Nexium] 20 mg capsule,delayed release(DR/EC) 20 mg PO DAILY PRN naproxen sodium [Aleve] 220 mg capsule 220 mg PO BID PRN alendronate [Fosamax] 70 mg tablet 70 mg PO QWEEK Qty: 15 3RF zolpidem 5 mg tablet 2.5 mg PO QHS PRN (Reason: sleep) Qty: 30 0RF simethicone [Gas-X Extra Strength] 125 MG tablet,chewable 125 mg PO PRN PRN ibuprofen [Advil] 200 mg tablet 200 mg PO TID-QID PRN Discontinued bisacodyl [Dulcolax (bisacodyl)] 5 mg tablet,delayed release (DR/EC) 5 mg PO ONCE Qty: 4 0RF Rx Instructions: Take per colonoscopy instructions provided by ordering providers office polyethylene glycol 3350 17 gram/dose powder 17 g PO ONCE Qty: 238 0RF Rx Instructions: Take per colonoscopy instructions provided by ordering providers office Discharge Instructions Additional Instructions: Followup 1 year for urinalysis Activity:: Activity as Tolerated Diet:: As Tolerated Discharge Orders Discharge Orders: Discharge Order (Routine); Ordered 09/27/23 Ordered By: Nilay Heath DS: Diagnosis Discharge Diagnosis (1) Encounter for screening colonoscopy: Status: Acute
--- NOTE | 2023-09-28 08:37 | W.PM.OP ---
Date of service: 09/28/23 Time of Service: 08:37 Operative Note Operative Note DATE OF PROCEDURE: 09/28/23 PRE-OP DIAGNOSIS: microscopic hematuria POST-OP DIAGNOSIS: same PROCEDURE: cystoscopy with bilateral retrograde pyelograms SURGEON: Getachew Zavala ANESTHESIA TYPE: General:No Airway Refer to Anesthesia Record ESTIMATED BLOOD LOSS: 5 PATHOLOGY: none sent COMPLICATIONS: None Patient was transported to: same day Patient's condition: stable Implants: none Indications: This is a 78-year-old woman who has a history of microscopic hematuria. She has never had gross hematuria. She had a workup about 5 years ago that showed no significant uropathology. The urinalysis is continued to show greater than 3 red blood cells per high-power field. She presents now for repeat cystoscopy and retrograde pyelogram. She has already had a renal ultrasound that showed no solid renal mass Findings: no bladder tumor Procedure Description: The patient was given a dose of preoperative oral antibiotics and brought to the operating room on 09/28/2023. After successful induction of general anesthesia without intubation, she underwent colonoscopy. Following the colonoscopy, her genitalia was prepped and draped. 2% Xylocaine jelly was instilled into the urethra to act as a local anesthetic. A 22 Greenlandic rigid cystoscope was passed through the urethra into the bladder. The bladder was inspected using a 30 degree lens. The base of the bladder had descended somewhat consistent with a cystocele. Both ureteral orifices appeared normal with no blood coming from either side. Each orifice was then cannulated with a 5 Greenlandic access catheter. Retrograde pyelograms were obtained by injecting Omnipaque through the access catheter under fluoroscopic guidance. Both ureters and collecting systems appeared normal with no filling defects. Both sides drained promptly on a 5-minute drainage film. We then inspected the rest of the bladder using both the 30 and the 70 degree lens. No papillary or nodular lesions were seen throughout the bladder. The bladder was emptied and the scope was removed. Based on today's examination, I find no evidence of a significant uropathology.
[2023-09-28 08:40] VITALS: BP 107/63; PULSE 75; RESP 18; TEMP 36.4; O2SAT 94
--- NOTE | 2023-09-28 08:45 | DI.RAD_ITS ---
Exam(s) XR RETROGRADE IN OR EXAM: XR RETROGRADE IN OR CLINICAL HISTORY: Microscopic hematuria TECHNIQUE: 2D and realtime digital imaging was performed. CONTRAST MATERIAL: Refer to procedure report. COMPARISON: US US RENAL from 06/09/2023 FINDINGS: Fluoroscopy was provided for Dr. Zavala during the performance of a retrograde evaluation of the kandi l collecting systems. Please refer to the procedure report for complete details. Ka,r=3.14 mGy IMPRESSION: RADIATION DOSE DELIVERED:
--- NOTE | 2023-09-28 09:09 | W.ANESPOSTOP ---
Postoperative Evaluation Date, Time and Location Date Performed: 09/28/23 Time Performed: 09:09 Patient Location: Day Surgery Unit Vital Signs Most Recent Imported Vital Signs: Most Recent Vital Signs Temp Pulse Resp BP Pulse Ox 36.4 C L 75 18 107/63 94 09/28/23 08:40 09/28/23 08:40 09/28/23 08:40 09/28/23 08:40 09/28/23 08:40 Pain Score Most Recent Pain Score: Most Recent Pain Score Pain Level 0 09/28/23 08:40 Assessment Mental Status: Awake (Alert & Oriented to Patient Baseline) Airway and Respiratory Function: Patent airway with normal (patient baseline) respiratory exam Cardiovascular Function: Hemodynamically Stable Hydration Status: Adequately Hydrated Nausea & Vomiting: No Nausea or Vomiting Pain: Pt. Denies Any Pain Peripheral Nerve Block: Patient did not receive a nerve block
[2023-09-28 09:11] VITALS: BP 111/64; PULSE 61; RESP 13; TEMP 36.8; O2SAT 99
== END 2023-09-28 10:15 | disposition home or self-care (01) ==
PROVIDERS: Surgery; PCP Nurse Practitioner Family; Visit Provider Urology
PROC: (CPT 74450; principal; 2023-09-28 10:15)
PROC: 0DJD8ZZ Inspection of Lower Intestinal Tract, Via Natural or Artificial Opening Endoscopic (ICD-10-PCS; CPT 45378; 2023-09-28 10:15)
DX: R31.29 Other microscopic hematuria (principal); Z12.11 Encounter for screening for malignant neoplasm of colon; R73.03 Prediabetes; K21.9 Gastro-esophageal reflux disease without esophagitis; N39.3 Stress incontinence (female) (male); K57.30 Diverticulosis of large intestine without perforation or abscess without bleeding; K63.5 Polyp of colon
CPT/HCPCS: 45380; 52005; 88305; 74420; J1100; J1885; J2001; J2405; J2704; Q9967

== ENCOUNTER → 2024-01-28 13:44 | Outpatient (BNVA) | payer MEDICARE, BC, SELFPAY | PROVIDERS: PCP Nurse Practitioner Family; Referring Provider Nurse Practitioner Family | DX: M17.11 Unilateral primary osteoarthritis, right knee (principal) | CPT/HCPCS: 20610; J1010 ==

== ENCOUNTER 2024-03-18 02:33 | Outpatient (CLI) | payer MEDICARE, BC, SELFPAY ==
--- OUTSIDE RECORDS SUMMARY | 2024-03-18 02:50 | XMS_ITS | Encounter Summary ---
Author Organization [facility] Address [address] [place] [address] Care Team Providers Care Ultrasonic Hand Solderer Name Role Phone Unknown, Provider Primary Care Provider [phone] Encounter Details Date Type Department Care Team (Late st Contact Info) Description 01/25/2018 Results Only [facility] [phone] Catrachita Cruz MD [address] [place] [address] Social History Tobacco Use Types Packs/Day Years Used Date Smoking Tobacco: Never Assessed Sex and Gender Information Value Date Recorded Sex Assigned at Not on file Gender Identity Not on file Sexual Orientation Not on file documented as of this encounter Plan of Treatment Not on file documented as of this encounter Procedures Procedure Name Priority Date/Time Associated Diagnosis Comments SURGICAL PATHOLOGY Routine 01/25/2018 17 :07 EDT documented in this encounter Results * SURGICAL PATHOLOGY (01/25/2018 17:07 EDT) Pathology Report: SURGICAL PATHOLOGY REPORT Reports generated via electronic interface contain original data; however they are lacking the format of the original report. Caution should be taken when reading/interpret ing unformatted reports. Name: ? IJEOMA WYATT ? Accession #: ? [id number] ? : ? 1945 (Age: 72) ??F ? Collect Date: ? 01/25/2018 ? Location: ? [facility] ? Receive Date: ? 01/25/2018 ? Provider: CATRACHITA CRUZ MD Copy to: GARRETT MONCADA SEARCH MANAGER ? Final Pathologic Diagnosis: A. ??RECTUM, POLYP, POLYPECTOMY: - Tubular adenoma. ?? B. ??ASCENDING COLON POLYPS, POLYPECTOMIES: - Tubular adenoma. - Minute fragment of unremarkable colonic mucosa. ?? Document reviewed and electronically signed by: ALYSON GONZALEZ MD Report ??Date: 01/26/2018 13:33 By the signature above, the attending physician certifies that he/she has personally conducted a gross and/or microscopic examination of the described specimens and rendered or confirmed the above diagnosis. Specimen(s) Received: A. ??Rectal polyp B. ??Ascending colon polyp x2 Clinical History: H/O colon polyps Gross Description: A. ?Received in formalin labelled with proper patient identification (initials H, L) and rectal polyp is a cuba nodular tissue, 0.3 x 0.2 x 0.2 cm. Entirely submitted in A1. B. ?Received in formalin labelled with proper patient identification (initials H, L) and ascending colon polyps x2 are two cuba irregular tissues 0.2 x 0.1 x 0.1 cm and 0.2 x 0.2 x 0.1 cm. Entirely submitted in B1. WILMAN Butterfield (ASCP) 01/25/2018 5:41 PM End of Report [facility] 01/25/2018 17:0 7 EDT 01/25/2018 17:07 EDT Catrachita Cruz MD PATHOLOGY ORDERBertin GUERRERO [facility] [address] [place] [address] documented in this encounter Visit Diagnoses Not on filedocumented in this encounter Care Teams Ultrasonic Hand Solderer Relationship Specialty Start Date End Date Unknown, Provider, PCP - General 06/22/15 01/26/18 documented as of this encounter
--- OUTSIDE RECORDS SUMMARY | 2024-03-18 02:50 | XMS_ITS | Encounter Summary ---
Author Organization [facility] Address [address] [place] [address] Care Team Providers Care Travel Ot Name Role Phone Anastacia Ruby LAUNDRY OPERATOR WASH ROOM Primary Care Provider [phone] Encounter Details Date Type Department Care Team (Late st Contact Info) Description 03/27/2023 Lab Requisition [facility] Pathology & Laboratory Medicine - [address] [id number] Outr Resulting Lab, Provider Social History Tobacco Use Types Packs/Day Years Used Date Smoking Tobacco: Never Assessed Interpersonal Safety Answer Date Record ed Physically Hurt Never 03/18/2020 Verbally Threaten Not on file 03/18/2020 Sex and Gender Information Value Date Recorded Sex Assigned at Not on file Gender Identity Not on file Sexual Orientation Not on file documented as of this encounter Plan of Treatment Not on file documented as of this encounter Procedures Procedure Name Priority Date/Time Associated Diagnosis Comments HEPATITIS C AB W REFLEX TO HCV RNA BY PCR Routine 03/27/2023 9:07 EDT documented in this encounter Results * HEPATITIS C AB W REFLEX TO HCV RNA BY PCR (03/27/2023 9:07 EDT) Hep C Antibody Negative Negative 03/30/2023 10:24 EDT [facility] Blood VENOUS BLOOD / Unknown 03/27/2023 9:07 EDT 03/27/2023 17:35 EDT Provider Outr Resulting Lab CHEMISTRY & BLOOD GAS ORDERABLES [facility] [address] [place] [address] documented in this encounter Visit Diagnoses Not on filedocumented in this encounter Care Teams Travel Ot Relationship Specialty Start Date End Date Anastacia Ruby, LEANDRA PCP - General 01/27/18 documented as of this encounter
--- OUTSIDE RECORDS SUMMARY | 2024-03-18 02:50 | XMS_ITS | Clinical Summary ---
Author Organization [facility] Address [address] [place] [address] Care Team Providers Care Game And Fish Protector Name Role Phone Anastacia Ruby OPERATING ENGINEER Primary Care Provider [phone] Social History Tobacco Use Types Packs/Day Years Used Date Smoking Tobacco: Never Assessed Interpersonal Safety Answer Date Record ed Physically Hurt Never 03/18/2020 Verbally Threaten Not on file 03/18/2020 Sex and Gender Information Value Date Recorded Sex Assigned at Not on file Gender Identity Not on file Sexual Orientation Not on file Plan of Treatment Health Maintenance Due Date Last Done Comments RSV Immunization ( o r 60+ Years) (1 - 1-dose 60+ series) 2006 Fall Risk Screening 2011 COVID-19 Vaccine (2022- season) 2023 Hepatitis C Screen Completed 03/27/2023 Procedures Procedure Name Priority Date/Time Associated Diagnosis Comments HEPATITIS C AB W REFLEX TO HCV RNA BY PCR Routine 03/27/2023 9:07 EDT from Last 3 Months or Most Recently Relevant to Health Maintenance Results * HEPATITIS C AB W REFLEX TO HCV RNA BY PCR (03/27/2023 9:07 EDT) Hep C Antibody Negative Negative 03/30/2023 10:24 EDT [facility] Blood VENOUS BLOOD / Unknown 03/27/2023 9:07 EDT 03/27/2023 17:35 EDT Provider Outr Resulting Lab CHEMISTRY & BLOOD GAS ORDERABLES [facility] [address] [place] [address] from Last 3 Months or Most Recently Relevant to Health Maintenance Care Teams Game And Fish Protector Relationship Specialty Start Date End Date Anastacia Ruby OPERATING ENGINEER PCP - General 01/27/18
--- OUTSIDE RECORDS SUMMARY | 2024-03-18 02:50 | XMS_ITS | Encounter Summary ---
Author Organization [facility] Address [address] [place] [address] Care Team Providers Care Rn Birthing Name Role Phone Unavailable Primary Care Provider Unavailabl e Encounter Details Date Type Department Care Team (Late st Contact Info) Description 07/10/2009 Orders Only [facility] [address] [place] [address] Beverly Morse MD [address] [place] [address] Social History Tobacco Use Types Packs/Day Years Used Date Smoking Tobacco: Never Assessed Sex and Gender Information Value Date Recorded Sex Assigned at Not on file Gender Identity Not on file Sexual Orientation Not on file documented as of this encounter Plan of Treatment Not on file documented as of this encounter Procedures Procedure Name Priority Date/Time Associated Diagnosis Comments HPV DETECTION, HIGH RISK TYPES Routine 07/10/2009 12:21 EST CYTOPATHOLOGY Routine 07/10/2009 0:00 EST documented in this encounter Results * HUMAN PAPILLOMA VIRUS DNA TEST (07/10/2009 12:21 EST) Specimen Description Cervix, ThinPrep vial [facility] Result Negative for HPV types 16, 18, 31, 33, 35, 39, 45, 51, 52, 56, 58, 59, and 68. [facility] Report Status Final 07/25/2009 [facility] 07/10/2009 12:2 1 EST 07/19/2009 12:21 EST Beverly Morse MD MICROBIOLOGY - GENER AL ORDERABLES [facility] [address] [place] [address] * CYTOPATHOLOGY (07/10/2009 0:00 EST) Pathology Report: CYTOPATHOLOGY REPORT ? Reports generated via electronic interface contain original data; ? however they are lacking the format of the original report. ? Caution should be taken when reading/interpreti ng unformatted reports. ? Name: ? IJEOMA WYATT ? Accession #: ? [id number] ? : ? 1945 (Age: 64) ??F ?Collect Date: ? 07/10/2009 ? Location: ? [facility] ? Receive Date: ? 07/13/2009 ? Provider: ?BEVERLY MORSE MD ? Copy to: ? Specimen/Source: ?Pap Test, Cervix/Endocervix, ThinPrep Imaging System ? with manual evaluation ? Last Menstrual Period: ? Menstrual/Pregnanc y Status: ? Post Menopausal ? Hormonal/Contracep tive Status: ? Yes: Estrace ? Other: ? HPVDX - HPV testing requested regardless of diagnosis on current ThinPrep Pap ?? test. ? SPECIMEN ADEQUACY ? Satisfactory for Evaluation ? - assessment of transformation zone component not applicable ( e.g. atrophy, ? vaginal sample, hysterectomy) ? GENERAL CATEGORIZATION ? Negative for Intraepithelial Lesion or Malignancy ? Document reviewed and electronically signed by: ? Lynan Fawad, CT(ASCP) ? Report Date: ??07/18/2009 09:31 ? End of Report ? [facility] 07/10/2009 07/13/2009 Beverly Morse MD PATHOLOGY ORDERABLES Performing Organization Address City/State/[facility] Co de Phone Number [facility] [address] [place] [address] documented in this encounter Visit Diagnoses Not on filedocumented in this encounter
--- OUTSIDE RECORDS SUMMARY | 2024-03-18 02:50 | XMS_ITS | Encounter Summary ---
Author Organization [facility] Address [address] [place] [address] Care Team Providers Care Critical Care Registered Nurse Name Role Phone Unavailable Primary Care Provider Unavailabl e Encounter Details Date Type Department Care Team (Late st Contact Info) Description 10/01/1999 Results Only [facility] [address] [place] [address] Tesha Elizalde, LEANDRA Social History Tobacco Use Types Packs/Day Years Used Date Smoking Tobacco: Never Assessed Sex and Gender Information Value Date Recorded Sex Assigned at Not on file Gender Identity Not on file Sexual Orientation Not on file documented as of this encounter Plan of Treatment Not on file documented as of this encounter Procedures Procedure Name Priority Date/Time Associated Diagnosis Comments CYTOPATHOLOGY Routine 10/01/1999 10:34 EST documented in this encounter Results * CYTOPATHOLOGY (10/01/1999 10:34 EST) Pathology Report: CYTOPATHOLOGY REPORT Reports generated via electronic interface contain original data; however they are lacking the format of the original report. Caution should be taken when reading/interpreti ng unformatted reports. Name: ? IJEOMA WYATT ? Accession #: ? [id number] : ? 1945 (Age: 54) ??F ?Collect Date: ? 10/01/1999 Location: ?Receive Date: ? 10/01/1999 Provider: ?TESHA ELIZALDE NP Copy to: ?TEHSA ELIZALDE NP ? Specimen/Source: ?[facility] ThinPrep Last Menstrual Period: ? GYNECOLOGIC ??CYTOPATHOLOGY ??REPORT Name: IJEOMA WYATT L ?[facility] : 1945 ?? 54Y F ?Client ID: [id number] SS#: ? Clinician: SUSAN MOBLEY, DREW ?? Location: [facility] ??Copy to: ?? Specimen: ?[facility] ThinPrep ? Source: Cervix/Endocervix ?Collected: 09/30/99 ? Received: 10/01/1999 ?LMP: 09/09/99 ? Hormone Therapy: No ? : No ? Radiation Therapy: No ?? Post : No ?Chemotherapy: No ?IUD: No ? Prev Abnormal Pap: No ?? Clinical Hx: ?(Blank paz indicate information not provided on requisition) SPECIMEN ADEQUACY: ? Satisfactory For Evaluation ?? GENERAL CATEGORIZATION: ? WITHIN NORMAL LIMITS ? Reviewed And Electronically Signed By: ? Nakul Jane Jr., CT(ASCP) ? Report Date: ?? 10/02/1999 [facility] Archived Tests - Final Diagnosis Text Field: Clinical History : ? Document reviewed and electronically signed by: ? Conversion ? Report Date: ??10/02/1999 00:00 End of Report [facility] 10/01/1999 10:3 4 EST 10/01/1999 10:35 EST Tesha Elizalde LATHE TENDER PATHOLOGY ORDERABLES [facility] [address] [place] [address] documented in this encounter Visit Diagnoses Not on filedocumented in this encounter
--- OUTSIDE RECORDS SUMMARY | 2024-03-18 02:50 | XMS_ITS | Encounter Summary ---
Author Organization [facility] Address [address] [place] [address] Care Team Providers Care Air Conditioning Equipment Mechanic Name Role Phone Unavailable Primary Care Provider Unavailabl e Encounter Details Date Type Department Care Team (Late st Contact Info) Description 07/02/2007 Results Only [facility] [address] [place] [address] Beverly Morse MD [address] [place] [address] [place] [address] Social History Tobacco Use Types [...] Priority Date/Time Associated Diagnosis Comments CYTOPATHOLOGY Routine 07/02/2007 0:00 EST documented in this encounter Results * CYTOPATHOLOGY (07/02/2007 0:00 EST) Pathology Report: CYTOPATHOLOGY REPORT Reports generated via electronic interface contain original data; however they are lacking the format of the original report. Caution should be taken when reading/interpreti ng unformatted reports. Name: ? IJEOMA WYATT ? Accession #: ? [id number] : ? 1945 (Age: 62) ??F ?Collect Date: ? 07/02/2007 Location: ? [facility] ? Receive Date: ? 07/06/2007 Provider: ?BEVERLY MORSE MD Copy to: ? Specimen/Source: ?ThinPrep Pap Test, Cervix/Endocervix, processed on [employer] ThinPrep Imaging System, with manual evaluation Last Menstrual Period: ? Menstrual/Pregnanc y Status: ? Post Menopausal Other: ? HPVA - HPV testing requested if ASC-US on the current ThinPrep Pap test. ? SPECIMEN ADEQUACY ? Satisfactory for Evaluation - assessment of transformation zone component not applicable ( e.g. atrophy, vaginal sample, hysterectomy) GENERAL CATEGORIZATION ? Negative for Intraepithelial Lesion or Malignancy ? Document reviewed and electronically signed by: ? MIKE Wen(ASCP) ? Report Date: ??07/12/2007 11:43 End of Report ALDA GARCIA 07/02/2007 07/06/2007 Beverly Morse MD PATHOLOGY ORDERABLES Performing Organization Address City/State/[facility] Co de Phone Number ALDA GARCIA [address] [place] [address] documented in this encounter Visit Diagnoses Not on filedocumented in this encounter
--- OUTSIDE RECORDS SUMMARY | 2024-03-18 02:50 | XMS_ITS | Referral Summary ---
Author Organization [facility] Address [address] [place] [address] Care Team Providers Care Senior Oracle Adf Developer Name Role Phone Anastacia Ruby NP Primary Care Provider [phone] Social History Tobacco Use Types Packs/Day Years Used Date Smoking Tobacco: Never Assessed Interpersonal Safety Answer Date Record ed Physically Hurt Never 03/18/2020 Verbally Threaten Not on file 03/18/2020 Sex and Gender Information Value Date Recorded Sex Assigned at Not on file Gender Identity Not on file Sexual Orientation Not on file Plan of Treatment Not on file Procedures Procedure Name Priority Date/Time Associated Diagnosis Comments HEPATITIS C AB W REFLEX TO HCV RNA BY PCR Routine 03/27/2023 9:07 EDT from Last 3 Months or Most Recently Relevant to Health Maintenance Results * HEPATITIS C AB W REFLEX TO HCV RNA BY PCR (03/27/2023 9:07 EDT) Hep C Antibody Negative Negative 03/30/2023 10:24 EDT [facility] Blood VENOUS BLOOD / Unknown 03/27/2023 9:07 EDT 03/27/2023 17:35 EDT Provider Outr Resulting Lab CHEMISTRY & BLOOD GAS ORDERABLES [facility] [address] [place] [address] from Last 3 Months or Most Recently Relevant to Health Maintenance Care Teams Senior Oracle Adf Developer Relationship Specialty Start Date End Date Anastacia Ruby NP PCP - General 01/27/18
--- OUTSIDE RECORDS SUMMARY | 2024-03-18 02:50 | XMS_ITS | Encounter Summary ---
Author Organization [facility] Address [address] [place] [address] Care Team Providers Care Medical Physics Professor Name Role Phone Unknown, Provider Primary Care Provider [phone] Encounter Details Date Type Department Care Team (Latest Contact Info) Description 01/25/2018 10:35 EDT - 01/25/2018 23:59 EDT Hospital Encounter [address] [address] Unknown, Provider, Discharge Disposition: Home or Self Care Social History Tobacco Use Types Packs/Day Years Used Date Smoking Tobacco: Never Assessed Sex and Gender Information Value Date Recorded Sex Assigned at Not on file Gender Identity Not on file Sexual Orientation Not on file documented as of this encounter Discharge Disposition Disposition Code Departure Means Destination Home or Self [facility] documented in this encounter Plan of Treatment Not on file documented as of this encounter Visit Diagnoses Not on filedocumented in this encounter Care Teams Medical Physics Professor Relationship Specialty Start Date End Date Unknown, Provider, PCP - General 06/22/15 01/26/18 documented as of this encounter
--- OUTSIDE RECORDS SUMMARY | 2024-03-18 02:50 | XMS_ITS | Encounter Summary ---
Author Organization [facility] Address [address] [place] [address] Care Team Providers Care Tool Procurement Coordinator Name Role Phone Anastacia Ruby COMPUTER FORENSIC EXAMINER Primary Care Provider [phone] Encounter Details Date Type Department Care Team (Late st Contact Info) Description 09/28/2023 Lab Requisition [facility] Pathology & Laboratory Medicine - [facility] [address] [place] [address] Nilay Heath MD [address] [place] [address], [address] [place], [place] [id number] Encounter for screening for malignant neoplasm of colon; Other microscopic hematuria Social History Tobacco Use Types Packs/Day Years [...] Priority Date/Time Associated Diagnosis Comments SURGICAL PATHOLOGY Today 09/28/2023 8: 05 EST Encounter for screening for malignant neoplasm of colon Other microscopic hematuria documented in this encounter Results * SURGICAL PATHOLOGY (09/28/2023 8:05 EST) Note to Patient The following pathology results have been interpreted by your pathologist and may be available to you before your health provider has had the opportunity to review them. Please allow time for your provider to receive these results and explore management options, if applicable. 10/01/2023 17:24 [facility] Final Diagnosis A. COLON, 20 CM, POLYP, BIOPSY: - Colonic mucosa without significant diagnostic abnormality. - Deeper levels examined. 10/01/2023 17:24 [facility] Attestation By the signature below, the attending physician certifies that they have 1) personally conducted a gross and/or microscopic examination of the described specimen(s), and/or personally interpreted the results of laboratory testing of the described specimen(s), and 2) personally rendered or confirmed the above diagnosis. 10/01/2023 17:24 [facility] at 1724 Clinical History Screening colonoscopy 10/01/2023 17:24 [facility] Gross Description A. Received in formalin labelled with proper patient identification (initials H, L) and polyp @ 20 cm is a cuba-brown tissue, 0.6 x 0.2 x 0.1 cm. Entirely submitted in A1. WILMAN HOANG(ASCP) 09/28/2023 17:11 10/01/2023 17:24 [facility] Performing Lab [facility] 10/01/2023 17:24 [facility] Scanned Images 10/01/2023 17:24 [facility] Tissue COLON STRUCTURE / Unknown 09/28/2023 8:05 EST 09/28/2023 16:50 EST Nilay Heath MD PATHOLOGY ORDERABLES [facility] [address] [place] [address] documented in this encounter Visit Diagnoses Diagnosis Encounter for screening for malignant neoplasm of colon Special screening for malignant neoplasms, colon Other microscopic hematuria documented in this encounter Care Teams Tool Procurement Coordinator Relationship Specialty Start Date End Date Anastacia Ruby NP PCP - General 01/27/18 documented as of this encounter
--- OUTSIDE RECORDS SUMMARY | 2024-03-18 02:50 | XMS_ITS | Encounter Summary ---
Author Organization [facility] Address [place] [address] Care Team Providers Care Soccer Referee Name Role Phone Edel Levin APRN Primary Care Provider Encounter Details Date Type Department Care Team (Latest Contact Info) Description 06/15/2023 Travel Social History Tobacco Use Types Packs/Day Years Used Date Smoking Tobacco: Former Smokeless Tobacco: Never Alcohol Use Standard Drinks/Week Comments Yes 7 (1 standard drink = 0.6 oz pur e alcohol) Sex and Gender Information Value Date Recorded Sex Assigned at Not on file Gender Identity Not on file Sexual Orientation Not on file documented as of this encounter Plan of Treatment Upcoming Encounters Date Type Department Care Team (Late st Contact Info) Description 04/25/2024 4:00 PM EDT Office Visit Dermatology at [address] [place] [address] Gideon Olivas MD [address], [place] [address] documented as of this encounter Visit Diagnoses Not on filedocumented in this encounter Care Teams Soccer Referee Relationship Specialty Start Date End Date Edel Levin APRN [address] [facility] [address] [place], [place] [id number] PCP - General Family Medicine 09/07/18 documented as of this encounter
--- OUTSIDE RECORDS SUMMARY | 2024-03-18 02:50 | XMS_ITS | Encounter Summary ---
Author Organization [facility] [place] [address] Care Team Providers Care Director Of [employer] Name Role Phone Ollie Edel APRN Primary Care Provider [phone] Reason for Visit * Reason Comments Suture / Staple Removal Encounter Details Date Type Department Care Team (Late st Contact Info) Description 06/15/2023 1:30 PM EDT Office Visit Dermatology at [address] [place] [address] Gideon Olivas MD [address] [facility], [place] [address] Visit for suture removal Social History Tobacco Use Types Packs/Day Years Used Date Smoking Tobacco: Former Smokeless Tobacco: Never Alcohol Use Standard Drinks/Week Comments Yes 7 (1 standard drink = 0.6 oz pur e alcohol) Sex and Gender Information Value Date Recorded Sex Assigned at Not on file Gender Identity Not on file Sexual Orientation Not on file documented as of this encounter Progress Notes * Gideon Olivas MD - 06/15/2023 1:30 PM EDT Problem: Ijeoma follows up today for suture removal and biopsy results. She will be heading off tomorrow on her trip to [place]. Physical examination reveals good healing at the right lateral base of neck cyst excision site. Theright nasal lower sidewall biopsies and also appears to be healing well. Assessment and plan: Status post excision probable follicular cyst right lateral base of neck 1. Site appears to be healing well 2. Sutures removed. 3. May DC wound care instructions 4. Return to clinic in another year for repeat check. SCC versus BCC right lower nasal sidewall 1. We will notify patient of biopsy results when these are available are available 2. Return to clinic in 1 year. CC: Edel Levin APRN documented in this encounter Plan of Treatment Upcoming Encounters Date Type Department Care Team (Late st Contact Info) Description 04/25/2024 4:00 PM EDT Office Visit Dermatology at [place] [address] [place] [address] Gideon Olivas MD [address], [place] [address] documented as of this encounter Visit Diagnoses Diagnosis Visit for suture removal Encounter for removal of sutures documented in this encounter Care Teams Director Of [employer] Relationship Specialty Start Date End Date Edel Levin APRN [address] [place] [address] [place] [address] PCP - General Family Medicine 09/07/18 documented as of this encounter
--- OUTSIDE RECORDS SUMMARY | 2024-03-18 02:50 | XMS_ITS | Encounter Summary ---
Author Organization [facility] Address [facility] [place] [address] Care Team Providers Care Nursing Unit Coordinator Name Role Phone Ollie Edel APRN Primary Care Provider Reason for Visit * Reason Comments Follow-up Encounter Details Date Type Department Care Team (Late st Contact Info) Description 08/31/2023 4:15 PM EST Office Visit Dermatology at [address] [phone] Gideon Olivas MD [address] [place] [address], [place] [address] History of SCC (squamous cell carcinoma) of skin; History of basal cell carcinoma; Seborrheic keratosis Social History Tobacco Use Types Packs/Day Years [...] Progress Notes * Gideon Olivas MD - 08/31/2023 4:15 PM EST Problem: 1. Repeat skin checkup 2. History of multiple non-melanoma cutaneous malignancies. 3. 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 History BCCA right anterior rios February 2019 5. 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 She had a good trip to [place]. The right nasal sidewall biopsy has healed well. Physical examination reveals a pleasant 78-year-old woman who has a benign examination today of thehead and the neck the chest the back the hands arms forearms thighs and calves. She has several irritated seborrheic keratoses present on the anterior base of her neck. The right nasal sidewall site is healed well without evidence of recurrent SCCA. Assessment plan: Irritated seborrheic keratoses anterior base of neck 1. Could consider LN2 for the sites History of SCCA right nasal sidewall 1. No evidence of recurrence 2. Patient reassured 3. Return to clinic another 6 months for repeat check. CC: Edel Levin APRN documented in this encounter Plan of Treatment Upcoming Encounters Date Type Department Care Team (Late st Contact Info) Description 04/25/2024 4:00 PM EDT Office Visit Dermatology at [place] [address] [facility] [place] [address] Gideon Olivas MD [address], [place] [address] documented as of this encounter Visit Diagnoses Diagnosis History of SCC (squamous cell carcinoma) of skin Personal history of other malignant neoplasm of skin History of basal cell carcinoma Personal history of other malignant neoplasm of skin Seborrheic keratosis Other seborrheic keratosis documented in this encounter Care Teams Nursing Unit Coordinator Relationship Specialty Start Date End Date Edel Levin APRN [address] [place] [address] [address] [facility] [address] [place] [address] PCP - General Family Medicine 09/07/18 documented as of this encounter
--- OUTSIDE RECORDS SUMMARY | 2024-03-18 02:50 | XMS_ITS | Encounter Summary ---
Author Organization [facility] [place] [address] Care Team Providers Care Prototype Fabricator Name Role Phone AnaEdel velazquez [place] Primary Care Provider Encounter Details Date Type Department Care Team (Late Contact Info) Description 06/16/2023 Telephone Dermatology at [address] [place] [address] Martine Bryson LPN Social History Tobacco Use Types Packs/Day Years Used Date Smoking Tobacco: Former Smokeless Tobacco: Never Alcohol Use Standard Drinks/Week Comments Yes 7 (1 standard drink = 0.6 oz pur e alcohol) Sex and Gender Information Value Date Recorded Sex Assigned at Not on file Gender Identity Not on file Sexual Orientation Not on file documented as of this encounter Miscellaneous Notes * Telephone Encounter - Martine Bryson LPN - 06/16/2023 1:56 PM EDT 06/08/23 A-Right nasal sidewall, skin shave biopsy B-Right base of neck skin excision Bx: A-Nasal - SCCa B- Neck - cyst No further treatment necessary for A or B Dr. Olivas recommends follow up in three or four months. Reviewed biopsy results and Dr. Nolasco recommendations with patient. Appointment set for August 31, 2023 at 4:15. She voiced understanding. documented in this encounter Plan of Treatment Upcoming Encounters Date Type Department Care Team (Late Contact Info) Description 04/25/2024 4:00 PM EDT Office Visit Dermatology at [address] [place] [address] Gideon Olivas MD [address], [place] [address] documented as of this encounter Visit Diagnoses Not on filedocumented in this encounter Care Teams Prototype Fabricator Relationship Specialty Start Date End Date Edel Levin APRN [address] [facility] 1 [place] [address] PCP - General Family Medicine 09/07/18 documented as of this encounter
--- OUTSIDE RECORDS SUMMARY | 2024-03-18 02:50 | XMS_ITS | Encounter Summary ---
Author Organization [facility] Address [address] [place] [address] Care Team Providers Care Cotton Tipper Name Role Phone Unavailable Primary Care Provider Unavailabl e Encounter Details Date Type Department Care Team (Late st Contact Info) Description 10/31/1999 Results Only [facility] [address] [place] [address] Tesha Elizalde, LEANDRA Social History Tobacco Use [...] Date/Time Associated Diagnosis Comments SURGICAL PATHOLOGY Routine 10/31/1999 15 :46 EST documented in this encounter Results * SURGICAL PATHOLOGY (10/31/1999 15:46 EST) Pathology Report: SURGICAL PATHOLOGY REPORT Reports generated via electronic interface contain original data; however they are lacking the format of the original report. Caution should be taken when reading/interpreting unformatted reports. Name: ? IJEOMA WYATT ? Accession #: ? [id number] ? : ? 1945 (Age: 54) ??F ? Collect Date: ? 10/31/1999 ? Location: ?Receive Date: ? 10/31/1999 ? Provider: TESHA ELIZALDE NP Copy to: TESHA HANCOCK MD ? Final Pathologic Diagnosis: MICROSCOPIC DIAGNOSIS: ? Endometrium, biopsy: ? - Disordered proliferative endometrium with stromal breakdown. ? See comment. ? Comment: COMMENT: ? This case has been reviewed at intradepartmental consultation ? conference. (Dr. Marie)/tmg ?? Document reviewed and electronically signed by: Conversion for NARENDRA MARIE Report ??Date: 11/01/1999 00:00 By the signature above, the attending physician certifies that he/she has personally conducted a gross and/or microscopic examination of the described specimens and rendered or confirmed the above diagnosis. Specimen(s) Received: TISSUE SUBMITTED: CLINICAL DATA: ? Perimenopausal/alexei rhagia; LMP: 10/15/99 Gross Description: GROSS: ? Received in formalin labelled Adilia and endometrial bx are ? multiple, red-brown, slightly mucoid, soft tissue fragments ? aggregating 1.5 x 1.0 x 0.2 cm. ??The specimen is entirely ? submitted in one cassette. ??(Leroy Martini/marti End of Report ALDA GARCIA 10/31/1999 15:4 6 EST 10/31/1999 15:47 EST Tesha Elizalde NP PATHOLOGY ORDERABLES [facility] [address] [place] [address] documented in this encounter Visit Diagnoses Not on filedocumented in this encounter
--- OUTSIDE RECORDS SUMMARY | 2024-03-18 02:50 | XMS_ITS | Clinical Summary ---
Author Organization [facility] Address [facility] [place] [address] Care Team Providers Care Liner Assembler Name Role Phone Edel Levin APRN Primary Care Provider Allergies Active Allergy Reactions Criticality Noted Date Comments Naproxen Medium 11/01/2020 Other reaction(s): GI UPSET, DIDNT FEEL WELL ON IT Oxycodone [id number] 05/16/20 13 Temazepam Medium 11/01/2020 Other reaction(s): headache Medications Medication Sig Dispensed Refills Start Date End Date Status esomeprazole (NexIUM) 20 mg Capsule, Delayed Release(E.C.) Take by mouth. 01/23/2020 Active zolpidem (Ambien) 5 mg Tablet TAKE 0.5 TABLET BY MOUTH AT BEDTIME NEEDED FOR SLEEP 01/24/2021 Active alendronate (Fosamax) 70 mg tablet Take 70 mg by mouth once a week. 05/01/2023 Active Active Problems Problem Noted Date Diagnosed Date Hyperlipidemia 04/17/2022 Osteopenia 04/17/2022 Prediabetes 04/17/2022 Trochanteric bursitis, right hip 04/17/2022 Tubular adenoma of colon 04/17/2022 History of SCC (squamous cell carcinoma) of skin 02/27/2017 AK (actinic keratosis) 02/27/2017 Arthritis 05/20/2016 Family history of malignant neoplasm of breast 1 Stress incontinence in female 05/20/2016 Malignant neoplasm of skin 05/20/2016 Osteoarthritis of both knees 12/12/2015 Basal cell carcinoma 08/21/2015 Insomnia 01/25/2015 Gastroesophageal reflux disease 11/14/2014 Low back pain with sciatica 03/09/2014 History of basal cell carcinoma 05/16/2013 Seborrheic keratosis 05/16/2013 Solar lentigo 05/16/2013 Personal history of colonic polyps 09/24/2011 Colon polyp 07/16/2005 Resolved Problems Problem Noted Date Diagnosed Date Resolved Date Visit for suture removal 09/06/201511/2015 Immunizations Name Administration Dates Next Due Pneumococcal Polysaccharide (Pneumovax 23) 08/17 TD Adult 08/17/2002 Family History Medical History Relation Comments Breast Cancer Father Cancer Father Breast Cancer Mother Cancer Mother Relation Status Comments Father Mother Social History Tobacco Use Types Packs/Day Years Used Date Smoking Tobacco: Former Smokeless Tobacco: Never Alcohol Use Standard Drinks/Week Comments Yes 7 (1 standard drink = 0.6 oz pur e alcohol) Sex and Gender Information Value Date Recorded Sex Assigned at Not on file Gender Identity Not on file Sexual Orientation Not on file Last Filed Vital Signs Vital Sign Reading Time Taken Comments Blood Pressure 140/76 05/20/2016 1:46 PM EDT Pulse 68 05/20/2016 1:46 PM EDT Temperature - - Respiratory Rate 14 09/24/2011 10:25 AM EST Oxygen Saturation 98% 09/24/2011 10:25 AM EST Inhaled Oxygen Concentration - - Weight 61.2 kg (135 lb) 05/20/2016 1:46 PM EDT Height 162.6 cm (5' 4) 05/20/2016 1:46 PM EDT Body Mass Index 23.17 05/20/2016 1:46 PM EDT Plan of Treatment Upcoming Encounters Date Type Department Care Team (Late st Contact Info) Description 04/25/2024 4:00 PM EDT Office Visit Dermatology at [place] [address] [place] [address] Gideon Olivas MD [address], [place] [address] Health Maintenance Due Date Last Done Comments Hepatitis C Screening 1964 Tdap adult 1965 Zoster vaccine (1 of 2) 1996 Advance Directive 2001 Bone Density Scan 2011 Pneumoccocal Vaccine: 65+ (2 of 2 - PCV) 2011 08/17/2002 Tetanus vaccine 08/17/2012 08/17/2002 Covid-19 Vaccine (24 season) 2023 Influenza (Flu) vaccine (1 o f 1 - Influenza standard series) 04/17/2024 Colonoscopy Discontinued 09/24/2011, 09/24/2011 Colorectal Cancer Screening Discontinued Sigmoidoscopy (10 year) with FIT yearly Discontinued 0 09/24/2011, 09/24/2011 Breast Cancer screening Discontinued 04/08/2021, 11/21 CT Colonography Discontinued FIT DNA Discontinued FIT Discontinued Sigmoidoscopy Discontinued Procedures Procedure Name Priority Date/Time Associated Diagnosis Comments MAMMO SCREENING CAD AND ABHIJIT BILATERAL Routine 04/08/2021 1:09 PM EDT Visit for screening mammogram COLONOSCOPY Routine 09/24/2011 9:28 AM EST from Last 3 Months or Most Recently Relevant to Health Maintenance Results * Mammo Screening Cad and Abhijit Bilateral (04/08/2021 1:09 PM EDT) Anatomical Region Laterality Modality Breast Bilateral Mammography Narrative 04/08/2021 1:41 PM EDT BILATERAL MAMMOGRAPHY REASON FOR EXAM: Screening TECHNIQUE: CC and MLO views were obtained of each breast using standard 2-D mammography as well as 3-D tomosynthesis. Computer aided detection was used. This is compared with prior images. FINDINGS: ??The breasts are heterogeneously dense, which may obscure small masses. There are no suspicious microcalcifications, masses, or areas of distortion. The pattern is stable. CONCLUSION: No mammographic evidence of malignancy. RECOMMENDATION: Regular screening mammograms starting between age 40 and 50 reduces the risk of from breast cancer. All screening tests have both risks and benefits. These risks and benefits should be assessed for each individual patient through discussion with their provider to determine their preferred breast cancer screening schedule. Women should report any breast changes to a health care provider right away. Some women, because of their family history, a genetic tendency, or other factors, should be screened with annual breast MRI as well as with mammograms. (The number of women who fall into this category is very small). Patients and health care providers should discuss each patient? s history to decide if earlier screening and/or breast MRI are appropriate. Screening should continue as long as a woman is in good health and is expected to live 10 years or longer. Screening mammography may not detect 10-15% of breast cancers. A result letter has been sent to this patient by the [facility]. BIRADS CATEGORY 1: NEGATIVE Electronically signed by: ARIEL FORD MD Edel Huddlestonu OWNER MANAGER IMG MAMMO ORDERABLE S * COLONOSCOPY (09/24/2011 9:28 AM EST) COLONOSCOPY [facility] Endoscopy Patient Name: Ijeoma Pat ? Procedure Date: 09/24/2011 9:28 AM ? N: [id number] ? Date of : 1945 ? Age: 66 ? Order #: [id number] ? Procedure: ? Colonoscopy Indications: ? High risk colon cancer surveillance: ? Personal history of colonic polyps Providers: ? Nilay Knutson MD, Charlotte Silva, ? RN, Farshad Morse RN, Jonathan Olmos, ? Fruit Inspector Referring MD: ?Beverly Ramirez MD Medicines: ? Fentanyl 125 micrograms IV, Midazolam ? 4 mg IV, Promethazine 25 mg IV Complications: ? No immediate complications. Procedure: ? Pre-Anesthesia Assessment: ? - [place] Protocol: ? - Pre-procedure Verification: Prior ? to the procedure, the patient's ? identity was verified by full name, ? date of and medical record ? number. The patient's identity was ? verified on all pertinent medical ? records, including History and ? Physical. Also prior to the ? procedure, a History and Physical was ? performed, and patient medications, ? allergies and sensitivities were ? reviewed. The patient's tolerance of ? previous anesthesia was reviewed. The ? risks and benefits of the procedure ? and the sedation options and risks ? were discussed with the patient. All ? questions were answered and informed ? consent was obtained. ? - Marking: The correct endoscopic ? procedure was verified by verbal ? agreement. ? - Time-Out: Prior to the start of the ? procedure, the patient's ? identification, proposed procedure, ? accurate signed consent, correctly ? labeled images and records, and need ? for prophylactic antibiotics were ? verified by the physician and the ? nurse in the pre-procedure area in ? the procedure room. ? - ASA Grade Assessment: I - A normal, ? healthy patient. ? - The anesthesia plan was to use ? moderate sedation/analgesia ? (conscious sedation). ? The procedure, indications, benefits, ? risks and alternatives were explained ? to the patient. Specifically ? discussed were potential ? complications including, but not ? limited to, bleeding, perforation, ? infection, missing a cancer, and ? adverse medication reactions. The ? patient was placed in the left ? lateral decubitus position, and a ? digital rectal exam was performed. ? The Colonoscope was inserted in the ? anus and under direct visualization, ? advanced to the terminal ileum. ? Careful inspection was made as the ? colonoscope was withdrawn. The ? colonoscopy was performed with ease. ? The patient tolerated the procedure ? well. The quality of the bowel ? preparation was excellent and ? adequate to identify polyps. The ? ileocecal valve, appendiceal orifice, ? terminal ileum and rectum were ? photographed. Scope withdrawal time ? was 8 minutes. ? Findings: ? The terminal ileum appeared normal. Multiple small ? and large-mouthed diverticula were found in the ? entire colon (mostly in sigmoid colon). There was ? narrowing of the colon in association with the ? diverticulosis in the sigmoid colon. This made ? insertion of the scope difficult through this area. ? The exam was otherwise normal throughout the examined ? colon. No new polyps identified. ? Impression: ?- Diverticulosis in the entire ? examined colon. Recommendation: ?- High fiber diet (25-35 gm daily) to ? prevent worsening of diverticular ? disease. ? - Repeat colonoscopy in 5 years for ? surveillance for colon polyps. ? Attending Participation: ? I personally performed the entire procedure. ? Nilay Knutson MD 09/24/2011 10:23 AM ? Number of Addenda: 0 Note Initiated On: 09/24/2011 9:28 AM PROVATION 09/24/2011 9:28 AM EST Nilay Knutson MD GENERAL SURGICAL ORD ERABLES PROVATION from Last 3 Months or Most Recently Relevant to Health Maintenance Care Teams Liner Assembler Relationship Specialty Start Date End Date Edel Levin APRN [address] [place], [place] [id number] PCP - General Family Medicine 09/07/18
--- OUTSIDE RECORDS SUMMARY | 2024-03-18 02:50 | XMS_ITS | Encounter Summary ---
Author Organization [facility] Address [address] [place] [address] Care Team Providers Care Cigarette Vendor Name Role Phone Unavailable Primary Care Provider Unavailabl e Encounter Details Date Type Department Care Team (Late st Contact Info) Description 10/05/2000 Results Only [facility] - [facility] [address] [place] [address] Tesha Elizalde, LEANDRA Social History Tobacco Use [...] Priority Date/Time Associated Diagnosis Comments CYTOPATHOLOGY Routine 10/05/2000 0:00 EST documented in this encounter Results * CYTOPATHOLOGY (10/05/2000 0:00 EST) Pathology Report: CYTOPATHOLOGY REPORT Reports generated via electronic interface contain original data; however they are lacking the format of the original report. Caution should be taken when reading/interpreti ng unformatted reports. Name: ? IJEOMA WYATT ? Accession #: ? [id number] : ? 1945 (Age: 55) ??F ?Collect Date: ? 10/05/2000 Location: ? [facility] ? Receive Date: ? 10/07/2000 Provider: ?TESHA ELIZALDE CLERICAL ADJUDICATOR Copy to: ? Specimen/Source: ?ThinPrep Pap Test, Cervix/Endocervix Last Menstrual Period: ? 09/10/00 Menstrual/Pregnanc y Status: ? Menopausal: Dolores Treatment History: ? Miscellaneous treatment: endometrial bx (disordered proliferative endometrium with stromal breakdown) ? SPECIMEN ADEQUACY ? Satisfactory for evaluation. GENERAL CATEGORIZATION ? Within Normal Limits ? Document reviewed and electronically signed by: ? MIKE Flood(ASCP) ? Report Date: ??10/08/2000 08:20 End of Report ALDA GARCIA 10/05/2000 10/07/2000 Tesha Elizalde NP PATHOLOGY ORDERABLES ALDA GARCIA [address] [place] [address] documented in this encounter Visit Diagnoses Not on filedocumented in this encounter
--- OUTSIDE RECORDS SUMMARY | 2024-03-18 02:51 | XMS_ITS | Encounter Summary ---
Author Organization [facility] [place] [address] Care Team Providers Care Merchandiser Retail Representative Name Role Phone Beverly Ramirez MD Primary Care Provider [phone] Encounter Details Date Type Department Care Team (Late Contact Info) Description 02/06/2015 - 02/06/2015 11:59 PM EDT Hospital Encounter [place] [address] [address] Ayan Temporary Pain Discharge Disposition: Home Social History Tobacco Use Types Packs/Day Years Used Date Smoking Tobacco: Former Alcohol Use Standard Drinks/Week Comments Yes 7 (1 standard drink = 0.6 oz pur e alcohol) Sex and Gender Information Value Date Recorded Sex Assigned at Not on file Gender Identity Not on file Sexual Orientation Not on file documented as of this encounter Medications at Time of Discharge Medication Sig Dispensed Refills Start Date End Date zolpidem (AMBIEN) 5 mg tablet Take 2.5 mg by mouth nightly as needed. 03/07/2019 calcium carbonate (TUMS) 200 mg (500 mg) chewable tablet 04/08/2006 12/12/2015 documented as of this encounter Plan of Treatment Upcoming Encounters Date Type Department Care Team (Late st Contact Info) Description 04/25/2024 4:00 PM EDT Office Visit Dermatology at [place] [address] [place] [id number] Gideon Olivas MD [address], [place] [address] documented as of this encounter Procedures Procedure Name Priority Date/Time Associated Diagnosis Comments FILM LIBRARY STORAGE ONLY DX KNEE Routine 02/06/2015 12:00 AM EDT Pain documented in this encounter Results * Film Library- Storage only DX Knee (02/06/2015 12:00 AM EDT) Narrative RAD - 11/27/2015 1:08 AM EDT This exam is for storage only and is auto-finalizing. Dr Salazar [facility] FILM LIBRARY ORD ERABLES [employer] documented in this encounter Visit Diagnoses Diagnosis Pain Generalized pain documented in this encounter Care Teams Merchandiser Retail Representative Relationship Specialty Start Date End Date Beverly Ramirez MD [address] [place] [address] PCP - General 07/09/10 02/26/17 documented as of this encounter
--- OUTSIDE RECORDS SUMMARY | 2024-03-18 02:51 | XMS_ITS | Encounter Summary ---
Author Organization [facility] Address [facility] [place] [address] Care Team Providers Care Animal Husbandry Technician Name Role Phone Beverly Ramirez MD Primary Care Provider [phone] Encounter Details Date Type Department Care Team (Late st Contact Info) Description 11/23/2013 [place] [address] Trisha Santos MD [facility] [place] [address] Social History Tobacco Use Types Packs/Day Years [...] 4:00 PM EDT Office Visit Dermatology at [place] [address] [place] [address] Gideon Olivas MD [address], [place] [address] documented as of this encounter Procedures Procedure Name Priority Date/Time Associated Diagnosis Comments FILM LIBRARY STORAGE ONLY MAMMO Routine 11/23/2013 2:15 PM EDT documented in this encounter Results * Film Library- Storage only Mammo (11/23/2013 2:15 PM EDT) Anatomical Region Laterality Modality Other 11/23/2013 2:15 PM EDT Narrative 11/17/2014 2:31 PM EDT This is a Non-reportable exam Procedure Note HOA, UNSIGNED REPORT - 11/17/2014 This is a Non-reportable exam Trisha Santos MD [facility]RARY [place]D ERABLES documented in this encounter Visit Diagnoses Not on filedocumented in this encounter Care Teams Animal Husbandry Technician Relationship Specialty Start Date End Date Beverly Ramirez MD [address] [place] [address] PCP - General 07/09/10 02/26/17 documented as of this encounter
--- OUTSIDE RECORDS SUMMARY | 2024-03-18 02:51 | XMS_ITS | Encounter Summary ---
Author Organization [facility] Address [facility] [place] [address] Care Team Providers Care Ui Ux Web Developer Name Role Phone Anastacia Ruby APRN Primary Care Provider [phone] Reason for Visit * Reason Comments Skin Check Encounter Details Date Type Department Care Team (Late st Contact Info) Description 02/27/2017 4:00 PM EDT Office Visit Dermatology at [address] [address] Gideon Olivas MD [address] [place] [address], [place] [address] History of SCC (squamous cell carcinoma) of skin; History of basal cell carcinoma; AK (actinic keratosis) Social History Tobacco Use Types Packs/Day Years Used Date Smoking Tobacco: Former Alcohol Use Standard Drinks/Week Comments Yes 7 (1 standard drink = 0.6 oz pur e alcohol) Sex and Gender Information Value Date Recorded Sex Assigned at Not on file Gender Identity Not on file Sexual Orientation Not on file documented as of this encounter Progress Notes * Gideon Olivas MD - 02/27/2017 4:00 PM EDT PROBLEM: 1. Yearly skin checkup. 2. History of multiple non-melanoma cutaneous malignancies. 3. History of BCCA, superficial type, left frontoparietal scalp, 08/2015. Ijeoma follows for a 1-year skin checkup. She has been doing well. PHYSICAL EXAMINATION: Reveals a pleasant, 71-year-old woman who has numerous seborrheic keratoses present on her back, her arms, her chest. Fortunately, careful examination of the head and the neck, the chest, the back, hands, arms, thighs, and the calves, soles of the feet, is otherwise benign. There is no evidence of recurrence of the superficial BCCA treatment site on the left frontoparietal scalp. The patient has a single actinic keratosis on the right mid cheek. A/P: 1. History of multiple non-melanoma cutaneous malignancies. a. No evidence of recurrence. b. Patient reassured. c. Continue sun avoidance precautions. d. Recommend that given the number of past skin cancers she has had, that I continue to see her on a once-yearly basis. 2. Actinic keratosis, right malar prominence. a. LN2 x2 applied to single site. CC: Anastacia Ruby APRN documented in this encounter Plan of Treatment Upcoming Encounters Date Type Department Care Team (Late st Contact Info) Description 04/25/2024 4:00 PM EDT Office Visit Dermatology at [place] [address] [place] [address] Gideon Olivas MD [address], [place] [address] documented as of this encounter Visit Diagnoses Diagnosis History of SCC (squamous cell carcinoma) of skin Personal history of other malignant neoplasm of skin History of basal cell carcinoma Personal history of other malignant neoplasm of skin AK (actinic keratosis) Actinic keratosis documented in this encounter Care Teams Ui Ux Web Developer Relationship Specialty Start Date End Date Anastacia Ruby APRN PCP - General Family Medicine 02/27/17 09/06/18 documented as of this encounter
--- OUTSIDE RECORDS SUMMARY | 2024-03-18 02:51 | XMS_ITS | Encounter Summary ---
Author Organization [facility] Address [facility] [place] [address] Care Team Providers Care Lieutenant Fire Fighter Name Role Phone Beverly Ramirez MD Primary Care Provider [phone] Encounter Details Date Type Department Care Team (Late st Contact Info) Description 10/04/2012 [place] [address] Trisha Santos MD [facility] [place]AGNOST[place] [address] Social History Tobacco Use Types Packs/Day Years [...] 4:00 PM EDT Office Visit Dermatology at [place] [address] [place] [address] Gideon Olivas MD [address], [place] [address] documented as of this encounter Procedures Procedure Name Priority Date/Time Associated Diagnosis Comments FILM LIBRARY STORAGE ONLY MAMMO Routine 10/04/2012 2:10 PM EST documented in this encounter Results * Film Library- Storage only Mammo (10/04/2012 2:10 PM EST) Anatomical Region Laterality Modality Other 10/04/2012 2:10 PM EST Narrative 11/17/2014 2:24 PM EDT This is a Non-reportable exam Procedure Note HOA, UNSIGNED REPORT - 11/17/2014 This is a Non-reportable exam Trisha Santos MD [facility] [place]RARY [place]D ERABLES documented in this encounter Visit Diagnoses Not on filedocumented in this encounter Care Teams Lieutenant Fire Fighter Relationship Specialty Start Date End Date Beverly Ramirez MD [address] [place] [address] PCP - General 07/09/10 02/26/17 documented as of this encounter
--- OUTSIDE RECORDS SUMMARY | 2024-03-18 02:51 | XMS_ITS | Encounter Summary ---
Author Organization [facility] Address [facility] [place] [address] Care Team Providers Care Computer Hardware Designer Name Role Phone Beverly Ramirez MD Primary Care Provider [phone] Encounter Details Date Type Department Care Team (Late st Contact Info) Description 09/23/2010 Orders [place] [address] Trisha Santos MD [facility] [place] [address] Social History Tobacco Use Types Packs/Day Years [...] 4:00 PM EDT Office Visit Dermatology at [place] [address] [place] [phone] Gideon Olivas MD [address], [place] [address] documented as of this encounter Procedures Procedure Name Priority Date/Time Associated Diagnosis Comments FILM LIBRARY STORAGE ONLY MAMMO Routine 09/23/2010 2:05 PM EST documented in this encounter Results * Film Library- Storage only Mammo (09/23/2010 2:05 PM EST) Anatomical Region Laterality Modality Other 09/23/2010 2:05 PM EST Narrative 11/17/2014 2:21 PM EDT This is a Non-reportable exam Procedure Note HOA, UNSIGNED REPORT - 11/17/2014 This is a Non-reportable exam Trisha Santos MD [facility] FILM LIBRARY ORD ERABLES documented in this encounter Visit Diagnoses Not on filedocumented in this encounter Care Teams Computer Hardware Designer Relationship Specialty Start Date End Date Beverly Ramirez MD [address] [place] [address] PCP - General 07/09/10 02/26/17 documented as of this encounter
--- OUTSIDE RECORDS SUMMARY | 2024-03-18 02:51 | XMS_ITS | Encounter Summary ---
Author Organization [facility] Address [facility] [place] [address] Care Team Providers Care Clinical Applications Manager Name Role Phone Edel Levin APRN Primary Care Provider Encounter Details Date Type Department Care Team (Latest Contact Info) Description 06/08/2023 Travel Social History Tobacco Use Types Packs/Day [...] 4:00 PM EDT Office Visit Dermatology at [address] [place] [address] Gideon Olivas MD [address], [place] [address] documented as of this encounter Visit Diagnoses Not on filedocumented in this encounter Care Teams Clinical Applications Manager Relationship Specialty Start Date End Date Edel Levin APRN [address] [facility] [address] [place], [place] [id number] PCP - General Family Medicine 09/07/18 documented as of this encounter
--- OUTSIDE RECORDS SUMMARY | 2024-03-18 02:51 | XMS_ITS | Encounter Summary ---
Author Organization [facility] Address [facility] [place] [address] Care Team Providers Care Resident Manager Name Role Phone Ollie Edel QUINN Primary Care Provider [phone] Reason for Visit * Reason Comments Follow-up Skin Check Encounter Details Date Type Department Care Team (Late st Contact Info) Description 03/07/2019 3:15 PM EDT Office Visit Dermatology at [address] [phone] Gideon Olivas MD [address] [place] [address], [place] [address] History of SCC (squamous cell carcinoma) of skin; Seborrheic keratosis; History of basal cell carcinoma Social History Tobacco Use Types Packs/Day Years [...] Progress Notes * Gideon Olivas MD - 03/07/2019 3:15 PM EDT Problem: 1. Yearly skin checkup 2. History of multiple non-melanoma cutaneous malignancies. Ijeoma follows up and is here for yearly skin checkup. She noted a new lesion on the right anterior rios that this does not want to heal. It always crusts and scabs. Physical examination reveals a 1cm shallow erosion concerning for SCC versus BCCA with some surrounding hyperkeratosis and minimal induration. She has a sunburn on the presternal chest and moderate area tanning of the upper torso and arms and face. Fortunately careful examination of the head and the neck the chest the back the hands the arms forearms thighs and the calves is benign. Assessment and plan: Rule out SCC versus BCCA right anterior rios 1. After obtaining informed consent site was anesthetized and removed with shave C&D 2. After curettage site measured 1.3 cm in diameter 3. Wound care instructions and supplies given 4. We will notify the patient of her biopsy results in 1 week. 5. Return to clinic will be next year for regular yearly skin checkup. 6.. Stressed the importance of sun avoidance precautions CC: Edel Levin APRN documented in this encounter Plan of Treatment Upcoming Encounters Date Type Department Care Team (Late st Contact Info) Description 04/25/2024 4:00 PM EDT Office Visit Dermatology at [place] [address] [facility] [place] [phone] Gideon Olivas MD [address] [facility], [place] [address] documented as of this encounter Visit Diagnoses Diagnosis History of SCC (squamous cell carcinoma) of skin Personal history of other malignant neoplasm of skin Seborrheic keratosis Other seborrheic keratosis History of basal cell carcinoma Personal history of other malignant neoplasm of skin documented in this encounter Care Teams Resident Manager Relationship Specialty Start Date End Date Edel Levin APRN [address] [facility] [address] [place] [address] PCP - General Family Medicine 09/07/18 documented as of this encounter
--- OUTSIDE RECORDS SUMMARY | 2024-03-18 02:51 | XMS_ITS | Encounter Summary ---
[place] [address] Care Team Providers Care Insemination Worker Name Role Phone Edel Levin APRN Primary Care Provider Reason for Referral * Diagnostic Test (Routine) - Closed Specialty Diagnoses / Procedures Referred By Afshin meyer Referred To Contact Radiology Diagnoses Visit for screening mammogram Procedures Mammo Screening Cad and Abhijit Bilateral Edel Levin APRN [address] [place] [address] [facility] [place] [address] Referral ID Status Reason Start Date Expiration Date V isits Requested Visits Authorized [id number] Closed Specialty Service Requested 01/25/2021 07/27/2022 1 1 Reason for Visit * Diagnostic Test (Routine) - Closed Specialty Diagnoses / Procedures Referred By Afshin meyer Referred To Contact Radiology Diagnoses Visit for screening mammogram Procedures Mammo Screening Cad and Abhijit Bilateral Edel Levin APRN [address] [place] [address] [facility] [place] [address] Referral ID Status Reason Start Date Expiration Date V isits Requested Visits Authorized [id number] Closed Specialty Service Requested 01/25/2021 07/27/2022 1 1 Encounter Details Date Type Department Care Team (Late st Contact Info) Description 04/08/2021 12:45 PM EDT - 04/08/2021 11:59 PM EDT Hospital Encounter Mammography/[place] [address] Edel Levin, [place] [address] [place] [address] Visit for screening mammogram Discharge Disposition: Home Social History Tobacco Use [...] Sig Dispensed Refills Start Date End Date esomeprazole (NexIUM) 20 mg Capsule, Delayed Release(E.C.) Take by mouth. 01/23/2020 zolpidem (Ambien) 5 mg Tablet TAKE 0.5 TABLET BY MOUTH AT BEDTIME NEEDED FOR SLEEP 01/24/2021 traZODone (DESYREL) 50 mg Tablet take 1 tablet by mouth at bedtime 0 09/23/2018 06/08/2023 documented as of this encounter Plan of Treatment Upcoming Encounters Date Type Department Care Team (Late st Contact Info) Description 04/25/2024 4:00 PM EDT Office Visit Dermatology at [place] [address] [place] [address] Gideon Olivas MD [address], [place] [address] documented as of this encounter Procedures Procedure Name Priority Date/Time Associated Diagnosis Comments MAMMO SCREENING CAD AND ABHIJIT BILATERAL Routine 04/08/2021 1:09 PM EDT Visit for screening mammogram documented in this encounter Results * Mammo Screening Cad and Abhijit [...] Electronically signed by: ARIEL FORD MD Edel Levin APRN IMG MAMMO ORDERABLE S documented in this encounter Visit Diagnoses Diagnosis Visit for screening mammogram Other screening mammogram documented in this encounter Care Teams Insemination Worker Relationship Specialty Start Date End Date Edel Levin APRN [address] [place] [address] PCP - General Family Medicine 09/07/18 documented as of this encounter
--- OUTSIDE RECORDS SUMMARY | 2024-03-18 02:51 | XMS_ITS | Encounter Summary ---
Author Organization [facility] Address [facility] [place] [address] Care Team Providers Care Marble Installer Supervisor Name Role Phone AnaEdel velazquez [place] Primary Care Provider Encounter Details Date Type Department Care Team (Late st Contact Info) Description 09/08/2018 External Results Medical Records [facility] [place] [phone] Provider, Scanning Social History Tobacco Use Types Packs/Day Years [...] PM EDT Office Visit Dermatology at [address] [place] [phone] Gideon Olivas MD [address] [place] [address] RD, [place] [address] documented as of this encounter Procedures Procedure Name Priority Date/Time Associated Diagnosis Comments SURGICAL PATHOLOGY SCAN Routine 09/08/2018 documented in this encounter Results * Scan Doc: Surgical Pathology (09/08/2018) Historical Provider MD NELSON MGR SCAN EX T ORDR/RSLT documented in this encounter Visit Diagnoses Not on filedocumented in this encounter Care Teams Marble Installer Supervisor Relationship Specialty Start Date End Date Edel Leivn APRN [address] [place] [address] PCP - General Family Medicine 09/07/18 documented as of this encounter
--- OUTSIDE RECORDS SUMMARY | 2024-03-18 02:51 | XMS_ITS | Encounter Summary ---
Author Organization [facility] Address [facility] [place] [address] Care Team Providers Care Identification Technician Name Role Phone Ollie Edel QUINN Primary Care Provider Encounter Details Date Type Department Care Team (Latest Contact Info) Description 09/07/2018 9:30 PM EST - 09/07/2018 11:59 PM EST Hospital [place] [phone] Discharge Disposition: Home Social History Tobacco Use [...] Sig Dispensed Refills Start Date End Date ibuprofen (ADVIL;MOTRIN) 600 mg Tablet Take 600 mg by mouth every 6 hours as needed for Pain. 03/07/2019 zolpidem (AMBIEN) 5 mg tablet Take 2.5 mg by mouth nightly as needed. 03/07/2019 documented as of this encounter Plan of Treatment Upcoming Encounters Date Type Department Care Team (Late st Contact Info) Description 04/25/2024 4:00 PM EDT Office Visit Dermatology at [place] [address] [place] [phone] Gideon Olivas MD [address], [place] [address] documented as of this encounter Visit Diagnoses Not on filedocumented in this encounter Care Teams Identification Technician Relationship Specialty Start Date End Date Edel Levin APRN [address] [facility] 1 [place] [address] PCP - General Family Medicine 09/07/18 documented as of this encounter
--- OUTSIDE RECORDS SUMMARY | 2024-03-18 02:51 | XMS_ITS | Encounter Summary ---
Author Organization [facility] Address [facility] [place] [address] Care Team Providers Care Corporate Treasurer Name Role Phone Beverly Ramirez MD Primary Care Provider Encounter Details Date Type Department Care Team (Late st Contact Info) Description 10/07/2012 [place] [address] Trisha Santos MD [facility] [place] [address] Social History Tobacco Use Types Packs/Day Years [...] 4:00 PM EDT Office Visit Dermatology at [place] [address] [place] [address] Gideon Olivas MD [address], [place] [address] documented as of this encounter Procedures Procedure Name Priority Date/Time Associated Diagnosis Comments FILM LIBRARY STORAGE ONLY MAMMO Routine 10/07/2012 2:15 PM EST documented in this encounter Results * Film Library- Storage only Mammo (10/07/2012 2:15 PM EST) Anatomical Region Laterality Modality Other 10/07/2012 2:15 PM EST Narrative 11/17/2014 2:27 PM EDT This is a Non-reportable exam Procedure Note HOA, UNSIGNED REPORT - 11/17/2014 This is a Non-reportable exam Trisha Santos MD [facility] FILM LIBRARY ORD ERABLES documented in this encounter Visit Diagnoses Not on filedocumented in this encounter Care Teams Corporate Treasurer Relationship Specialty Start Date End Date Beverly Ramirez MD [address] [place] [address] PCP - General 07/09/10 02/26/17 documented as of this encounter
--- OUTSIDE RECORDS SUMMARY | 2024-03-18 02:51 | XMS_ITS | Encounter Summary ---
Author Organization [facility] Address [facility] [place] [place] [address] Care Team Providers Care Clinical Administrative Coordinator Name Role Phone AnaEdel velazquez [place] Primary Care Provider [phone] Reason for Visit * Reason Comments Follow-up Skin Check Encounter Details Date Type Department Care Team (Late st Contact Info) Description 06/08/2023 3:00 PM EDT Office Visit Dermatology at [address] [phone] Gideon Olivas MD [address] [place] [address], [place] [address] History of SCC (squamous cell carcinoma) of skin; History of basal cell carcinoma Social History [...] Progress Notes * Gideon Olivas MD - 06/08/2023 3:00 PM EDT Problem: 1. Yearly skin checkup 2. History of multiple non-melanoma cutaneous malignancies. 3. 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 She would also like to have the small follicular cystexcised from the right base of her neck as we discussed at her last visit 1 year ago. She will be heading down to [place] the day after . Physical examination reveals a pleasant 78-year-old woman who has a shallow 2 mm diameter erosion on the right nasal sidewall concerning for SCC versus BCCA. She has a 8 mm follicular cyst on the right base of her neck laterally. Otherwise examination of the head and the neck the chest the back thehands arms forearms thighs and calves is benign. Assessment plan: SCCA versus BCCA right nasal sidewall 1. After obtaining informed patient consent, site was anesthetized and removed with shave C&D 2. After curettage, the site measured 6 mm in diameter 3. Wound care instructions and supplies given. Follicular cyst right base of neck 1. Today site was anesthetized at patient request was excised. 2. Closure with two 4-0 Ethilon sutures 3. Wound care instructions and supplies given 4. Return to clinic in a week for suture removal and biopsy results. Benign skin examination 1. Patient reassured about the remainder of benign skin exam and. CC: Edel Levin APRN documented in this encounter Plan of Treatment Upcoming Encounters Date Type Department Care Team (Late st Contact Info) Description 04/25/2024 4:00 PM EDT Office Visit Dermatology at [place] [address] [place] [address] Gideon Olivas MD [address] [facility], [place] [address] documented as of this encounter Visit Diagnoses Diagnosis History of SCC (squamous cell carcinoma) of skin Personal history of other malignant neoplasm of skin History of basal cell carcinoma Personal history of other malignant neoplasm of skin documented in this encounter Care Teams Clinical Administrative Coordinator Relationship Specialty Start Date End Date Edel Levin APRN [address] [facility] 1 [place] [address] PCP - General Family Medicine 09/07/18 documented as of this encounter
--- OUTSIDE RECORDS SUMMARY | 2024-03-18 02:51 | XMS_ITS | Encounter Summary ---
Author Organization [facility] [place] [address] Care Team Providers Care Colorer Name Role Phone Beverly Ramirez MD Primary Care Provider [phone] Encounter Details Date Type Department Care Team (Late st Contact Info) Description 01/18/2014 - 01/18/2014 11:59 PM EDT Hospital Encounter [place] [address] [address] Ayan Temporary Pain Discharge [...] 4:00 PM EDT Office Visit Dermatology at [place] [address] [place] [phone] Gideon Olivas MD [address], [place] [address] documented as of this encounter Procedures Procedure Name Priority Date/Time Associated Diagnosis Comments FILM LIBRARY STORAGE ONLY DX KNEE Routine 01/18/2014 12:00 AM EDT Pain documented in this encounter Results * Film Library- Storage only DX Knee (01/18/2014 12:00 AM EDT) Narrative RAD - 11/27/2015 1:10 AM EDT This exam is for storage only and is auto-finalizing. Dr Salazar [facility] FILM LIBRARY ORD ERABLES [place], [place] documented in this encounter Visit Diagnoses Diagnosis Pain Generalized pain documented in this encounter Care Teams Colorer Relationship Specialty Start Date End Date Beverly Ramirez MD [address] [place] [address] PCP - General 07/09/10 02/26/17 documented as of this encounter
--- OUTSIDE RECORDS SUMMARY | 2024-03-18 02:51 | XMS_ITS | Encounter Summary ---
Author Organization [facility] Address [facility] [place] [address] Care Team Providers Care Urology Physician Name Role Phone Beverly Ramirez MD Primary Care Provider [phone] Encounter Details Date Type Department Care Team (Late st Contact Info) Description 11/21/2014 1:20 PM EDT - 11/21/2014 11:59 PM EDT Hospital Encounter Mammography at [facility] [place] [phone] Social History Tobacco Use Types Packs/Day Years [...] 4:00 PM EDT Office Visit Dermatology at [place] [address] [place] [phone] Gideon Olivas MD [address], [place] [address] documented as of this encounter Procedures Procedure Name Priority Date/Time Associated Diagnosis Comments MAMMO BREAST US LIMITED Routine 11/21/2014 3:01 PM EDT documented in this encounter Results * Mammo Breast Ultrasound Limited (11/21/2014 3:01 PM EDT) Anatomical Region Laterality Modality Breast N/A Mammography 11/21/2014 3:01 PM EDT Narrative 11/21/2014 5:22 PM EDT DIAGNOSTIC MAMMOGRAPHY AND ULTRASOUND OF THE LEFT BREAST CLINICAL HISTORY: last mammo was 11/23/13 AT [facility] PAIN IN LEFT BREAST UPPER OUTTER QUAD(FH BREAST CA MOTHER AND FATHER). ? TECHNIQUE AND VIEWS OBTAINED: Images acquired with direct digital capture 2-D and 3-D bilateral screening views CC and MLO in addition to 2-D and 3-D L ML and LX CCL views.. ??Tomographic imaging was performed The exam was evaluated by CAD version 8.3.17. Targeted ultrasound of the left breast in the area of concern was performed. COMPARISONS: Bilateral screening mammography 11/23/2013. BREAST DENSITY: Heterogenously dense FINDINGS MAMMOGRAPHY: No suspicious abnormality is identified. FINDINGS ULTRASOUND: Normal breast tissue identified with no suspicious finding. DIAGNOSTIC SUMMARY: Bilateral breast category 1. RECOMMENDATION: Routine screening mammography in one year. The patient was reassured but likely benign nature of her symptoms This report was reviewed by Trisha Santos at 11/21/2014 5:16 PM Film and interpretation reviewed by the attending Procedure Note Trisha Santos MD - 11/21/2014 DIAGNOSTIC MAMMOGRAPHY AND ULTRASOUND OF THE LEFT BREAST CLINICAL HISTORY: last mammo was 11/23/13 AT [facility] PAIN IN LEFT BREAST UPPEROUTTER QUAD(FH BREAST CA MOTHER AND FATHER). TECHNIQUE AND VIEWS OBTAINED: Images acquired with direct digital capture 2-D and 3-D bilateral screening views CC and MLO in addition to 2-D and3-D L ML and LX CCL views.. Tomographic imaging was performed The exam was evaluated by CAD version 8.3.17. Targeted ultrasound of theleft breast in the area of concern was performed. COMPARISONS: Bilateral screening mammography 11/23/2013. BREAST DENSITY: Heterogenously dense FINDINGS MAMMOGRAPHY: No suspicious abnormality is identified. FINDINGS ULTRASOUND: Normal breast tissue identified with no suspicious finding. DIAGNOSTIC SUMMARY: Bilateral breast category 1. RECOMMENDATION: Routine screening mammography in one year. The patient was reassured butlikely benign nature of her symptoms This report was reviewed by Trisha Santos at 11/21/2014 5:16 PM Film and interpretation reviewed by the attending Beverly Ramirez MD IMG MAMMO ORDERABLES documented in this encounter Visit Diagnoses Not on filedocumented in this encounter Care Teams Urology Physician Relationship Specialty Start Date End Date Beverly Ramirez MD [address] [place] [address] PCP - General 07/09/10 02/26/17 documented as of this encounter
--- OUTSIDE RECORDS SUMMARY | 2024-03-18 02:51 | XMS_ITS | Encounter Summary ---
Author Organization [facility] Address [facility] [place] [address] Care Team Providers Care Bucket Pusher Name Role Phone Beverly Ramirez MD Primary Care Provider [phone] Encounter Details Date Type Department Care Team (Latest Contact Info) Description 11/21/2014 1:19 PM EDT - 11/21/2014 11:59 PM EDT Hospital [place] [address] CLINIC, Beverly Story MD [address] [place], [place] [id number] Discharge Disposition: Home Social History Tobacco Use [...] 4:00 PM EDT Office Visit Dermatology at [address] [place] [phone] Gideon Olivas MD [address] [place] [address] RD, [place] [address] documented as of this encounter Procedures Procedure Name Priority Date/Time Associated Diagnosis Comments MAMMO 2D DIGITAL DIAG RICHARD WITH CAD BILATERAL Routine 11/21/2014 2:53 PM EDT documented in this encounter Results * Mammography Diag Richard Bilateral (11/21/2014 2:53 PM EDT) Anatomical Region Laterality Modality Breast Bilateral Mammography 11/21/2014 2:53 PM EDT Narrative 11/21/2014 5:22 PM EDT DIAGNOSTIC MAMMOGRAPHY AND ULTRASOUND OF THE LEFT BREAST CLINICAL HISTORY: last mammo was 11/23/13 AT [facility] PAIN IN LEFT BREAST UPPER OUTTER [...] CLINICAL HISTORY: last mammo was 11/23/13 AT [facility] PAIN IN LEFT BREAST UPPEROUTTER QUAD(FH [...] on filedocumented in this encounter Care Teams Bucket Pusher Relationship Specialty Start Date End Date Beverly Ramirez MD [address] [place] [address] PCP - General 07/09/10 02/26/17 documented as of this encounter
--- OUTSIDE RECORDS SUMMARY | 2024-03-18 02:51 | XMS_ITS | Encounter Summary ---
Author Organization [facility] Address [facility] [place] [address] Care Team Providers Care Knotting Machine Operator Name Role Phone Edel Levin APRN Primary Care Provider [phone] Reason for Visit * Reason Comments Follow-up Skin Check * Consultation (Routine) - Specialty Diagnoses / Procedures Referred By Afshin meyer Referred To Contact Dermatology Diagnoses Localized swelling, mass and lump, neck Nodule to right posterior neck x 4 mo Procedures Consult Edel Levin APRN [address] [facility] [address] [place] [address] Gideon Olivas MD [address] [place] [address], [facility] [place] [place] [address] Referral ID Status Reason Start Date Expiration Date V isits Requested Visits Authorized [id number] 08/30/2018 08/30/2019 1 1 Encounter Details Date Type Department Care Team (Late st Contact Info) Description 09/07/2018 4:00 PM EST Office Visit Dermatology at [address] [phone] Gideon Olivas MD [address] [place] [address], [facility] DERMAT[facility]Y [place], [place] [id number] History of SCC (squamous cell carcinoma) of [...] Progress Notes * Gideon Olivas MD - 09/07/2018 4:00 PM EST Problem: 1. Changing lesion right lateral base of neck Ijeoma follows up and states that in March she noticed development of a proliferation arising out of the right base of her neck out of the what was perhaps a seborrheic keratosis. It was present through until July. Then since then it is largely shrunk back down again. She has been seen by several providers in fact at one point a an ultrasound of the site was done. She seen however today here for evaluate evaluation of this. It is never drained any fluid. It has been slightly uncomfortable. It has not bled. She has squeezed and manipulated it. Physical examination reveals a pleasant 73-year-old woman who has a flesh toned hyperkeratotic papule 2-3 mm in diameter the base of her neck. Underlying this the dermis is quite indurated and firm and somewhat erythematous. Assessment plan: Suspect inflamed seborrheic keratosis with recent growth,, now back to baseline size 1. To rule out possible SCCA today a 6 mm punch biopsy was obtained and submitted for pathologic analysis 2. Site closed with three 4-0 Ethilon sutures 3. Return to clinic in 7-10 days for suture removal and biopsy results. Further treatment to be predicated on biopsy results. 4. If benign seborrheic keratosis, no further treatment necessary and would simply recommend follow-up in February for her yearly skin checkup. CC: Edel Levin APRN documented in this encounter Plan of Treatment Upcoming Encounters Date Type Department Care Team (Late st Contact Info) Description 04/25/2024 4:00 PM EDT Office Visit Dermatology at [place] [address] [place] [address] Gideon Olivas MD [address] [facility], [place] [address] documented as of this encounter Procedures Procedure Name Priority Date/Time Associated Diagnosis Comments SURGICAL PATHOLOGY REPORT Routine 09/07/2018 12:00 PM EST documented in this encounter Results * Surgical Pathology Report (09/07/2018 12:00 PM EST) FINAL DIAGNOSIS (AP) [id number] ? Location: [facility] The signing pathologist has (i) examined the relevant preparation(s) for the specimen(s) and (ii) rendered or confirmed the diagnosis(es). . ?Surgical Pathology DIAGNOSIS A. Skin, right lateral base of neck, punch biopsy: - ??Seborrheic keratosis with underlying dense lymphohistiocytic inflammation and giant cells (see discussion) Electronically signed by: ??Leeanne Alejandro MD Verified: ??09/10/2018 ?Dermatopathologist Performed at: ??-[facility] [place] Dept. of Pathology, [place], [place] DISCUSSION There is a dense lymphohistiocytic inflammation with foreign body-type giant cells, ??suggestive of sequelae of a ruptured follicle/follicular cyst. ?Carcinoma is not seen with multiple levels examined. ADDITIONAL STUDIES Multiple step-leveled sections were reviewed. CLINICAL INFORMATION Specimen Submitted: A - Skin, r lateral base of neck, punch (1) Clinical History and Diagnosis: In March 2018 development of ?hyperkeratotic proliferation suddenly, since July much less; seborrheic keratosis residual, rule out SCCA Referring Identifier: ?(not provided) SPECIMEN PROCESSING A - Labeled/Fixative: Patient demographics, formalin. Quantity/Size: ??Single, 0.6 x 0.5 x 0.2 cm. Tissue Description: Irregular punch of firm, cuba-pink and slightly crusted skin. Sections/Processing: Inked, bisected and entirely submitted in 1 cassette labeled A1. ??apb 09/10/2018 10:17 AM EST [facility] SPECIMEN FROM SKIN / Unknown 09/07/2018 12:00 PM EST 09/07/2018 12:00 PM EST Gideon Olivas MD PATHOLOGY/CYTOLOGY O RDERACESAR [facility] [place] [address] documented in this encounter Visit Diagnoses Diagnosis History of SCC (squamous cell carcinoma) of skin Personal history of other malignant neoplasm of skin Seborrheic keratosis Other seborrheic keratosis History of basal cell carcinoma Personal history of other malignant neoplasm of skin documented in this encounter Care Teams Knotting Machine Operator Relationship Specialty Start Date End Date Edel Levin APRN [address] [place] [address] [place] [address] PCP - General Family Medicine 09/07/18 documented as of this encounter
--- OUTSIDE RECORDS SUMMARY | 2024-03-18 02:51 | XMS_ITS | Encounter Summary ---
Author Organization [facility] [place] [address] Care Team Providers Care Home Delivery Driver Name Role Phone Beverly Ramirez MD Primary Care Provider [phone] Reason for Visit * Reason Comments Bilateral Knee Pain L>R Encounter Details Date Type Department Care Team (Latest Contact Info) Description 05/20/2016 2:00 PM EDT Office [place] [phone] Ginny Obando APRN [facility] [place] [address] Primary osteoarthritis of both knees (Primary Dx) Social History Tobacco Use Types Packs/Day Years Used Date Smoking Tobacco: Former Alcohol Use Standard Drinks/Week Comments Yes 7 (1 standard drink = 0.6 oz pur e alcohol) Sex and Gender Information Value Date Recorded Sex Assigned at Not on file Gender Identity Not on file Sexual Orientation Not on file documented as of this encounter Last Filed Vital Signs Vital Sign Reading Time Taken Comments Blood Pressure 140/76 05/20/2016 1:46 PM EDT Pulse 68 05/20/2016 1:46 PM EDT Temperature - - Respiratory Rate - - Oxygen Saturation - - Inhaled Oxygen Concentration - - Weight 61.2 kg (135 lb) 05/20/2016 1:46 PM EDT Height 162.6 cm (5' 4) 05/20/2016 1:46 PM EDT Body Mass Index 23.17 05/20/2016 1:46 PM EDT documented in this encounter Progress Notes * Ginny Obando APRN - 05/20/2016 2:00 PM EDT Chief complaint: Both knee symptomatic OA Problem List Items Addressed This Visit Osteoarthritis of both knees History of present illness: Ijeoma Pta is a 71 y.o. year-old female who was recently evaluated by Dr. Tillman for above and did quite well with both knee cortisone injections. She is here seeking bothknee cortisone injections. It has been greater than 3 months since her most recent injections. No interval falls, injuries or infections. She remains quite active and finds the injection help her with ADL's and her active lifestyle. No current fevers or chills. No systemic or constitutional complaints. No numbness or tingling reported. Her health has been stable otherwise and she is here for definitive management. Past medical history: Patient Active Problem List Diagnosis Date Noted ??? Arthritis 05/20/2016 ??? Family history of malignant neoplasm of breast 05/20/2016 ??? Stress incontinence in female 05/20/2016 ??? Malignant neoplasm of skin 05/20/2016 ??? Osteoarthritis of both knees 12/12/2015 ??? Visit for suture removal 09/06/2015 ??? Basal cell carcinoma 08/21/2015 ??? Insomnia 01/25/2015 ??? Gastroesophageal reflux disease 11/14/2014 ??? Low back pain with sciatica 03/09/2014 ??? History of basal cell carcinoma 05/16/2013 ??? Seborrheic keratosis 05/16/2013 ??? Solar lentigo 05/16/2013 ??? Personal history of colonic polyps 09/24/2011 ??? Colon polyp 07/16/2005 Medications: ??? Nwqsjqoabin-Dkenouqux-Tqc C-Mn (GLUCOSAMINE CHONDROITIN MAXSTR) 500-400 mg Capsule ??? ibuprofen (ADVIL;MOTRIN) 600 mg Tablet ??? zolpidem (AMBIEN) 5 mg tablet Allergies: Allergies Allergen Reactions ??? Percodan [Oxycodone Ams-Pcdmcbqgx-Fio] Social history: Social History Substance Use Topics ??? Smoking status: Former Smoker ??? Smokeless tobacco: Not on file ??? Alcohol use 4.2 oz/week 7 Shots of liquor per week Review of systems: No chest pain or shortness of breath No fevers, night sweats or chills Vital signs: Temp: -- Vitals: 05/20/16 1346 BP: 140/76 Pulse: 68 Weight: 61.2 kg (135 lb) Height: 162.6 cm (5' 4) Body mass index is 23.17 kg/(m^2). Physical Exam: 71 year old Female in NAD. Both knee exam: Gait is steady and non-antalgic. Positional changes are brisk. SLR capability is strong. EHL/FHL 5/5. Both knees with synovial fullness and trace effusions. No evidence of infection. ROM both knees with small flexion contractures of about 5 Degrees to about 120 degrees of flexion. Collateral ligaments are stable to valgus/varus stress. Varus alignment right greater than left. Both feet are sensate and well perfused, DP 2+ to palpation. Sensation intact to 1st webspace, medial and lateral sole and dorsum. Imaging: No new imaging obtained today. Assessment: 71 y.o. year-old female with both knee symptomatic moderate OA. Plan: I reviewed my findings in the office today with her clinical exam. Treatment options and risks/benefits discussed from least to most invasive. Patient understands options. At this time, She would like to continue with conservative measures namely both knee intra-articular cortisone injections. See procedures below. Additional modalities could include trekking poles to help unload her painful joints, Oral NSAID's OTC dosing and/or Cool packs and acetaminophen prn for pain no greater than 3grams per day. Consider knee sleeves PRN for additional support. She is aware that we can safely perform these injections a few times per year no sooner than every 3-4 months. Pt agrees, questions solicited/answered, will return as scheduled and as needed for concerns or questions. Pt understands they may also call us prn for above. Follow up: PRN. This plan was discussed with the patient and they are in agreement. All of the patient's questions were answered. Procedure #1: Right knee intra-articular cortisone injection: Prior to beginning conversation was held regarding the risks and benefits of cortisone injection. Atimeout was held confirming the correct side and medication. After which using appropriate sterile technique, approximately 4 mL 1% lidocaine plain were used anesthetize the skin. This was followed by an attempted aspiration with a dry tap with scant clear synovial fluid in the bevel of the knee,therefore using strict aseptic technique and same needle technique the Right knee was then injectedwith 4 ml of quarter percent Marcaine plain, and 40 mg of Kenalog. The patient tolerated this procedure well. Procedure #2: LEFT knee intra-articular cortisone injection: Prior to beginning conversation was held regarding the risks and benefits of cortisone injection. Atimeout was held confirming the correct side and medication. After which using appropriate sterile technique, approximately 4 mL 1% lidocaine plain were used anesthetize the skin. This was followed by an attempted aspiration with a dry tap with scant clear synovial fluid in the bevel of the knee,therefore using strict aseptic technique and same needle technique the LEFT knee was then injected with 4 ml of quarter percent Marcaine plain, and 40 mg of Kenalog. The patient tolerated this procedure well. documented in this encounter Plan of Treatment Upcoming Encounters Date Type Department Care Team (Late st Contact Info) Description 04/25/2024 4:00 PM EDT Office Visit Dermatology at [place] [address] [place] [address] Gideon Olivas MD [address] [facility] [place] [address] documented as of this encounter Visit Diagnoses Diagnosis Primary osteoarthritis of both knees- Primary Primary localized osteoarthrosis, lower leg documented in this encounter Administered Medications Inactive Administered Medications - up to 3 most recent administrations Medication Order MAR Action Action Date Dose Rate Site BUpivacaine (PF) (MARCAINE) 0.25 % (2.5 mg/mL) injection 12.5 mg 12.5 mg, Intra-articular, ONCE, 1 dose, On Thu05/20/16 at 1500, Routine Given 05/20/2016 2:36 PM EDT 12.5 mg lidocaine (XYLOCAINE) 10 mg/mL (1 %) injection 60 mg 60 mg, Intra-articular, ONCE, 1 dose, On Thu05/20/16 at 1500, Routine Given 05/20/2016 2:36 PM EDT 60 mg triamcinolone acetonide (KENALOG-40) injection 40 mg 40 mg, Intra-articular, ONCE, 1 dose, On Thu05/20/16 at 1500, Routine Given 05/20/2016 2:36 PM EDT 40 mg documented in this encounter Care Teams Home Delivery Driver Relationship Specialty Start Date End Date Beverly Ramirez MD [address] [place] [address] PCP - General 07/09/10 02/26/17 documented as of this encounter
--- OUTSIDE RECORDS SUMMARY | 2024-03-18 02:51 | XMS_ITS | Encounter Summary ---
Author Organization [facility] Address [facility] [place] [address] Care Team Providers Care Resort Desk Clerk Name Role Phone Beverly Ramirez MD Primary Care Provider [phone] Reason for Visit * Reason Comments Skin Lesion Encounter Details Date Type Department Care Team (Late st Contact Info) Description 08/30/2015 9:00 AM EST Procedure visit Dermatology at [address] [place] [phone] Gideon Sparks MD [address] [facility], [place] [address] Basal cell carcinoma Social History Tobacco Use Types Packs/Day Years Used Date Smoking Tobacco: Former Alcohol Use Standard Drinks/Week Comments Yes 7 (1 standard drink = 0.6 oz pur e alcohol) Sex and Gender Information Value Date Recorded Sex Assigned at Not on file Gender Identity Not on file Sexual Orientation Not on file documented as of this encounter Patient Instructions * Patient Instructions* Laura Aquino LPN - 08/30/2015 9:09 AM EST Images from the original note were not included. [facility] Skin Lesion Removal: What to Expect at Home Your Recovery After your procedure, you should not have much pain. But some soreness, swelling, or bruising is normal. Your doctor may recommend xeau-sno-kfkitom medicines to help with any discomfort. Most people can return to their normal routine the same day of their procedure. How quickly your wound heals depends on the size of your wound and the type of procedure you had. Most wounds take 1 to 3 weeks to heal. If you had laser surgery, your skin may change color and then slowly return to its normal color. You may need only a bandage, or you may need stitches. If you had stitches, your doctor will probably remove them 5 to 14 days later. If you have the type of stitches that dissolve, they do not have to be removed. They will disappear on their own. This care sheet gives you a general idea about how long it will take for you to recover. But each person recovers at a different pace. Follow the steps below to get better as quickly as possible. How can you care for yourself at home? Activity ?? For the first few days, try not to bump or knock your wound. ?? Depending on where your wound is, you may need to avoid strenuous exercise for 2 weeks after theprocedure or until your doctor says it is okay. ?? If you have had a lesion removed from your face, do not use makeup near your wound until you have your stitches taken out. ?? Ask your doctor when it is okay to shower, bathe, or swim. Medicines ?? Take pain medicines exactly as directed. ?? If the doctor gave you a prescription medicine for pain, take it as prescribed. ?? If you are not taking a prescription pain medicine, ask your doctor if you can take an ywlj-ifu-jefdjec medicine. Wound care ?? Keep the wound bandaged and dry for the first day. ?? Clean the wound with soap and water 2 times a day unless your doctor gives you different instructions. Don't use hydrogen peroxide or alcohol, which can slow healing. ?? You may cover the wound with a thin layer of petroleum jelly, such as Vaseline, and a nonstick bandage. ?? If you have stitches, you may get other instructions. ?? If a scab forms, do not pull it off. Let it fall off on its own. Wounds heal faster if no scab forms. Washing the area every day and using the ointment will help prevent a scab from forming. ?? If the wound bleeds, put direct pressure on it with a clean cloth until the bleeding stops. ?? If you had a growth frozen off, you may get a blister. Do not break it. Let it dry up on its own. It is common for the blister to fill with blood. You do not need to do anything about this, but if it becomes too painful, call your doctor. ?? Avoid the sun until your stitches are removed. Follow-up care is a macdonald part of your treatment and safety. Be sure to make and go to all appointments, and call your doctor if you are having problems. It's also a good idea to know your test resultsand keep a list of the medicines you take. When should you call for help? Call 911 anytime you think you may need emergency care. For example, call if: ?? You passed out (lost consciousness). ?? You have severe trouble breathing. ?? You have sudden chest pain and shortness of breath, or you cough up blood. Call your doctor now or seek immediate medical care if: ?? You have signs of infection, such as: ?? Increased pain, swelling, warmth, or redness. ?? Red streaks leading from the wound. ?? Pus draining from the wound. ?? A fever. ?? You have pain that does not get better after you take pain medicine. ?? You have loose stitches. Watch closely for changes in your health, and be sure to contact your doctor if you have any problems. Where can you learn more? Visit our health information library at [email or web address] You can also view health information on [employer], your personal patient account. Log in or sign up today. Enter Q228 in the search box to learn more about Skin Lesion Removal: What to Expect at Home. ?? [id number] [employer]. Care instructions adapted under license by [facility]. This care instruction is for use with your licensed healthcare professional. If you have questions about a medical condition or this instruction, always ask your healthcare professional. [employer] disclaims any warranty or liability for your use of this information. 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 Size: With margins, 1 cm. Deep Suture: 4-0 Vicryl. Surface Suture: 4-0 Prolene. Followup: In one week for suture removal and biopsy results. Indications for surgery, possible adverse outcomes, and activity restrictions were discussed. Informed verbal consent was obtained. Skin surface was prepared with 4% chlorhexidine and draped in the usual sterile manner. Local anesthesia with 1% lidocaine, 1:100,000 epinephrine, and 0.1 mEq/mL bicarbonate. Using a #15 blade and 2-mm margins, an elliptical excision was carried out around the 6-mm erythematous site. Undermining performed peripherally. Hemostasis with electrodesiccation. Layered closure performed with specimen to Pathology. Wound dressed and wound care reviewed. End length of suture line was 2 cm. Follow up in one week for suture removal and biopsy results. documented in this encounter Miscellaneous Notes * Addendum Note - Gideon Sparks MD - 09/03/2015 9:53 PM ESTAddended by: GIDEON SPARKS on: 09/03/2015 09:53 PM Modules accepted: Level of Service documented in this encounter Plan of Treatment Upcoming Encounters Date Type Department Care Team (Late st Contact Info) Description 04/25/2024 4:00 PM EDT Office Visit Dermatology at [place] [address] [place] [address] Gideon Sparks MD [address] [place] [address] documented as of this encounter Visit Diagnoses Diagnosis Basal cell carcinoma Basal cell carcinoma of skin, site unspecified documented in this encounter Care Teams Resort Desk Clerk Relationship Specialty Start Date End Date Beverly Ramirez MD [address] [place] [address] PCP - General 07/09/10 02/26/17 documented as of this encounter
--- OUTSIDE RECORDS SUMMARY | 2024-03-18 02:51 | XMS_ITS | Encounter Summary ---
Author Organization Count Includes [facility] Address [facility] [place] [address] Care Team Providers Care Medical Coding Instructor Name Role Phone Beverly Ramirez MD Primary Care Provider [phone] Reason for Visit * Reason Onset Date Comments Injections 05/06/2016 Encounter Details Date Type Department Care Team (Late st Contact Info) Description 05/06/2016 [place] [phone] Ray Tillman MD [facility] [address] [place] [address] Injections Social History Tobacco Use Types Packs/Day Years Used Date Smoking Tobacco: Former Alcohol Use Standard Drinks/Week Comments Yes 7 (1 standard drink = 0.6 oz pur e alcohol) Sex and Gender Information Value Date Recorded Sex Assigned at Not on file Gender Identity Not on file Sexual Orientation Not on file documented as of this encounter Miscellaneous Notes * Telephone Encounter - Delfina Brito - 05/12/2016 11:20 AM EDT Patient scheduled. * Telephone Encounter - Delfina Brito - 05/08/2016 2:27 PM EDT LM#2 to schedule bilat knee injections in clinic. * Telephone Encounter - Delfina Brito - 05/06/2016 3:29 PM EDT LM#1 to schedule bilat knee injections in clinic. * Telephone Encounter - Joy Blood RN - 05/06/2016 2:22 PM EDT Patient's request for injection appointment of the Bilateral knee has been reviewed by Clinical Support. Is it too soon for patient to have this injection? No Is this a synvisc/orthovisc injection? no Does this injection need to be scheduled in radiology under fluoro? not applicable Have orders been placed? no Injection within 3 months prior to joint arthroplasty or arthroscopy is associated with increased rates of postoperative infection: this includes, hip, knee, and shoulder. * Telephone Encounter - Wayne Carranza - 05/06/2016 2:09 PM EDT Best phone # to reach the patient for [phone] Patient requests appointment for injection of the Bilateral knee. Patient requests an injection of (product type: cortisone/Synvisc/Monovisc/other): cortisone Some injections require prior authorization, special orders, or an appointment somewhere other thanour clinic, so knowing this in advance will help us to better meet your needs. If the injection requires prior authorization, it may take 2-3 business days before we can scheduleyour appointment. As soon as this service approved by the clinical support team, we will call you to schedule the appointment. documented in this encounter Plan of Treatment Upcoming Encounters Date Type Department Care Team (Late st Contact Info) Description 04/25/2024 4:00 PM EDT Office Visit Dermatology at [place] [address] [facility] [place] [address] Gideon Olivas MD [address] [place] [address] documented as of this encounter Visit Diagnoses Not on filedocumented in this encounter Care Teams Medical Coding Instructor Relationship Specialty Start Date End Date Beverly Ramirez MD [address] [place] [address] PCP - General 07/09/10 02/26/17 documented as of this encounter
--- OUTSIDE RECORDS SUMMARY | 2024-03-18 02:51 | XMS_ITS | Encounter Summary ---
[facility] Address [facility] [place] [address] Care Team Providers Care Hospital Clinic Assistant Name Role Phone Beverly Ramirez MD Primary Care Provider [phone] Encounter Details Date Type Department Care Team (Latest Contact Info) Description 09/24/2011 7:44 AM EST - 09/24/2011 1:49 PM EST Hospital Encounter [place] [address] Aldair Knutson MD [facility] DR GASTRO[place] [address] Discharge Disposition: Home Social History Tobacco Use [...] Sign Reading Time Taken Comments Blood Pressure 119/49 09/24/2011 10:25 AM EST Pulse 65 09/24/2011 10:25 AM EST Temperature - - Respiratory Rate 14 09/24/2011 10:25 AM EST Oxygen Saturation 98% 09/24/2011 10:25 AM EST Inhaled Oxygen Concentration - - Weight - - Height - - Body Mass Index - - documented in this encounter Discharge Instructions * Discharge Instructions* Dania Zuniga RN - 09/24/2011 10:28 AM EST You may have received medication before and/or during your procedure which effects judgement and reaction time. Do not drive, operate machinery, drink alcoholic beverages, or make important decisions for 24 hours. Be careful on stairs, as you may be unsteady on your feet. You may eat a regular diet as tolerated. Do not smoke if you are alone. IV site-- slight redness or tenderness is normal. You may use a warm compress. If tenderness and redness increases for foul drainage occurs please contact your M.D. Please call [phone] before 5pm with problems, questions or concerns. After 5pm call [phone] and ask to speak with the precision jig grinder an employee sponsor or advocate and. Discharge instructions reviewed with patient who expresses's understanding. * Patient Instructions* Aldair Knutson MD - 09/24/2011 10:17 AM EST Please see Recommendations in the Provation procedure report which is documented in the procedural note in E-DH. * Attachments The following attachments cannot be sent through Care Everywhere. * COLONOSCOPY: WHAT TO EXPECT AT HOME (BELARUSIAN) documented in this encounter Medications at Time of Discharge Medication Sig Dispensed Refills Start Date End Date zolpidem (AMBIEN) 5 mg tablet Take 2.5 mg by mouth nightly as needed. 03/07/2019 calcium carbonate (TUMS) 200 mg (500 mg) chewable tablet 04/08/2006 12/12/2015 documented as of this encounter H&P Notes * Aldair Knutson MD - 09/24/2011 9:38 AM EST Endoscopy Unit (GI) History and Physical Ijeoma Pat 1945 Chief Complaint: h/o polyps HPI: Ijeoma Pat is a 66 y.o. y/o female patient here for evaluation of h/o colon polyp in 2005. Patient Active Problem List Diagnoses Code ??? Personal history of colonic polyps V12.72 No current facility-administered medications on file prior to encounter. Current outpatient prescriptions ordered prior to encounter Medication Sig Dispense Refill ??? calcium carbonate (TUMS) 200 mg (500 mg) chewable tablet Current facility-administered medications Medication Dose Route Frequency Provider Last Rate Last Dose ??? sodium chloride 0.9% infusion 30 mL/hr Intravenous Continuous Aldair Knutson MD 30 mL/hr (09/24/11850) Last Dose: 30 mL/hr at 09/24/11850 No Known Allergies History Social History ??? Marital Status: Spouse Name: N/A Number of Children: N/A ??? Years of Education: N/A Occupational History ??? Not on file. Social History Main Topics ??? Smoking status: Former Smoker ??? Smokeless tobacco: Not on file ??? Alcohol Use: 4.2 oz/week 7 Shots of liquor per week ??? Drug Use: ??? Sexually Active: Other Topics Concern ??? Not on file Social History Narrative ??? No narrative on file FamHx: no CRC PE: Filed Vitals: 09/24/1115 BP: 155/79 Pulse: 85 Resp: 18 Mental Status Examination: normal. Airway Examination: normal oropharyngeal airway and neck mobility. Respiratory Examination: clear to auscultation. CV Examination: RRR, no murmurs, no S3 or S4. GI Exam:Normal bowel sounds, abdomen soft, nontender, no palpable masses. A/P: Ijeoma Pat is a 66 y.o. y/o female patient here for evaluation of h/o colon polyps. Here for colonoscopy. Aldair Knutson MD Pipe Connectorswimming pool cleaner Division of Gastroenterology and Hepatology documented in this encounter Miscellaneous Notes * Miscellaneous - Provider, Scanning - 09/25/2011 1:28 AM EST * OR Attestation - Aldair Knutson MD - 09/24/2011 10:17 AM EST Attestation: Case Date: 09/24/2011 I performed this procedure without the involvement of a resident. ALDAIR KNUTSON MD 09/24/2011 * Op Note - Aldair Knutson MD - 09/24/2011 10:17 AM EST [facility] [place]ative [place] Patient Name: Ijeoma Pat : [id number] MR#: [id number] Case Date: 09/24/2011 Surgeon: Surgeon(s) and Role: * ALDAIR KNUTSON MD - Primary Preoperative diagnosis: phx of polyps (needs police district switchboard operator anes) Postoperative diagnosis: no new polyps, berry-diverticulosis Procedure(s): COLONOSCOPY, DIAGNOSTIC Full procedure note is documented under the Procedure section of eDH. * Miscellaneous - Provider, Scanning - 09/24/2011 9:26 AM EST documented in this encounter Plan of Treatment Upcoming Encounters Date Type Department Care Team (Late st Contact Info) Description 04/25/2024 4:00 PM EDT Office Visit Dermatology at [place] [address] [place] [address] Gideon Olivas MD [address], [place] [address] documented as of this encounter Procedures Procedure Name Priority Date/Time Associated Diagnosis Comments COLONOSCOPY, DIAGNOSTIC (WRVU 3.26) 09/24/2011 9:42 AM EST phx of polyps (needs police district switchboard operator anes) COLONOSCOPY Routine 09/24/2011 9:28 AM EST documented in this encounter Results * COLONOSCOPY (09/24/2011 9:28 AM EST) COLONOSCOPY [facility] Endoscopy Patient Name: Ijeoma Pat ? Procedure Date: 09/24/2011 9:28 AM ? Date of : 1945 ? Age: 66 ? Order #: [id number] ? Procedure: ? Colonoscopy Indications: ? High risk colon cancer surveillance: ? Personal history of colonic polyps Providers: ? Aldair Knutson MD, Charlotte Silva, ? RN, Farshad Morse RN, Jonathan Olmos, ? Power Plant Supervisor Referring MD: ?Beverly Ramirez MD Medicines: ? Fentanyl 125 micrograms IV, Midazolam ? 4 mg IV, Promethazine 25 mg IV Complications: ? No immediate complications. Procedure: ? Pre-Anesthesia Assessment: ? - Dendron Protocol: ? - Pre-procedure Verification: Prior ? [...] I personally performed the entire procedure. ? Aldair Knutson MD 09/24/2011 10:23 AM ? Number of Addenda: 0 Note Initiated On: 09/24/2011 9:28 AM PROVATION 09/24/2011 9:28 AM EST Aldair Knutson MD GENERAL SURGICAL ORD ERABLES PROVATION documented in this encounter Visit Diagnoses Diagnosis Personal history of colonic polyps documented in this encounter Administered Medications Inactive Administered Medications - up to 3 most recent administrations Medication Order MAR Action Action Date Dose Rate Site sodium chloride 0.9% infusion 30 mL/hr, Intravenous, CONTINUOUS, Starting on Thu09/24/11 at 0930, Until Thu09/24/11 at 1550, Endoscopy (Day of Procedure) New Bag 09/24/2011 8:51 AM EST 30 mL/hr 30 mL/hr documented in this encounter Active and Recently Administered Medications Times are shown in EST. Continuous Medication Order 09/22/2011 09/23/2011 09/24/2011 sodium chloride 0.9% infusion (CANCELED) 30 mL/hr, Intravenous, CONTINUOUS, Starting on Thu09/24/11 at 0930, Until Thu09/24/11 at 1550, Endoscopy (Day of Procedure) 0851 (New Bag - Prov ider: Shivani Powers RN) PRN Medication Order 09/22/2011 09/23/2011 09/24/2011 fentaNYL 50mcg/mL injection (CANCELED) ONCE PRN, Starting on Thu09/24/11 at 0946, Until Thu09/24/11 at 1550, Pain, Intra-Operative (Intra-Procedure), Routine 0946 (Given - Provid er: Charlotte Silva RN)0952 (Given - Provider: Charlotte Silva RN)0958 (Given - Provider: Charlotte Silva RN)1003 (Given - Provider: Charlotte Silva RN) midazolam (VERSED) injection (CANCELED) ONCE PRN, Starting on Thu09/24/11 at 0950, Until Thu09/24/11 at 1550, Sleep, Intra-Operative (Intra-Procedure), Routine 0950 (Given - Provid er: Charlotte Silva RN)0955 (Given - Provider: Charlotte Silva RN)1007 (Given - Provider: Charlotte Silva RN) promethazine (PHENERGAN) injection (CANCELED) ONCE PRN, Nausea, Starting on Thu09/24/11 at 0949, Until Thu09/24/11 at 1550, Avoid extravasation, Intra-Operative (Intra-Procedure) 0949 (Given - Provid er: Charlotte Silva RN)0956 (Given - Provider: Charlotte Silva RN) documented in this encounter Care Teams Hospital Clinic Assistant Relationship Specialty Start Date End Date Beverly Ramirez MD [address] [place] [address] PCP - General 07/09/10 02/26/17 documented as of this encounter
--- OUTSIDE RECORDS SUMMARY | 2024-03-18 02:51 | XMS_ITS | Encounter Summary ---
Author Organization [facility] Address [facility] [place] [address] Care Team Providers Care Milk Handler Name Role Phone Anastacia Ruby APRN Primary Care Provider [phone] Reason for Visit * Reason Comments Follow-up Encounter Details Date Type Department Care Team (Late st Contact Info) Description 03/04/2018 4:00 PM EDT Office Visit Dermatology at [address] [address] Gideon Olivas MD [address] [place] [address], [place] [address] History of SCC (squamous cell carcinoma) of [...] Progress Notes * Gideon Olivas MD - 03/04/2018 4:00 PM EDT Problem: 1. Yearly skin checkup 2. History of multiple non-melanoma cutaneous malignancies: Left frontal parietal scalp, right medial sidewall, left cheek, left anterior shoulder, left bridge of nose Ijeoma follows up for one-year check. She states that she has been doing well. Physical examination was a pleasant 72-year-old woman who is darkly tanned from a recent [place]. She has numerous seborrheic keratoses present on her back or arms and chest one present behind her left ear. Fortunately careful examination of the head and neck the chest and the back the hands the arms informs thighs and calves otherwise benign. There is no evidence of recurrence at any of the prior treatment sites noted above. Assessment plan: History of multiple non-melanoma cutaneous malignancies 1. No evidence of recurrence 2. Patient reassured 3. Continue to encourage somewhat precautions 4. Given her past history of multiple non-melanoma skin cancer would recommend continuing on a onceyearly basis skin checkup basis. Cc: Anastacia Ruby APRN documented in this encounter Plan of Treatment Upcoming Encounters Date Type Department Care Team (Late st Contact Info) Description 04/25/2024 4:00 PM EDT Office Visit Dermatology at [place] [address] [place] [address] Gideno Olivas MD [address] [facility], [place] [address] documented as of this encounter Visit Diagnoses Diagnosis History of SCC (squamous cell carcinoma) of skin Personal history of other malignant neoplasm of skin History of basal cell carcinoma Personal history of other malignant neoplasm of skin documented in this encounter Care Teams Milk Handler Relationship Specialty Start Date End Date Anastacia Ruby APRN PCP - General Family Medicine 02/27/17 09/06/18 documented as of this encounter
--- OUTSIDE RECORDS SUMMARY | 2024-03-18 02:51 | XMS_ITS | Encounter Summary ---
Author Organization [facility] Address [facility] [place] [address] Care Team Providers Care Yarder Puncher Name Role Phone Beverly Ramirez MD Primary Care Provider [phone] Encounter Details Date Type Department Care Team (Late st Contact Info) Description 08/29/2009 [place] [address] Trisha Santos MD [facility] [place] [address] Social History Tobacco Use Types Packs/Day Years [...] 4:00 PM EDT Office Visit Dermatology at [place] [address] [place] [phone] Gideon Olivsa MD [address], [place] [address] documented as of this encounter Procedures Procedure Name Priority Date/Time Associated Diagnosis Comments FILM LIBRARY STORAGE ONLY MAMMO Routine 08/29/2009 2:05 PM EST documented in this encounter Results * Film Library- Storage only Mammo (08/29/2009 2:05 PM EST) Anatomical Region Laterality Modality Other 08/29/2009 2:05 PM EST Narrative 11/17/2014 2:20 PM EDT This is a Non-reportable exam Procedure Note HOA, UNSIGNED REPORT - 11/17/2014 This is a Non-reportable exam Trisha Santos MD [facility] [place] FILM LIBRARY ORD ERABLES documented in this encounter Visit Diagnoses Not on filedocumented in this encounter Care Teams Yarder Puncher Relationship Specialty Start Date End Date Beverly Ramirez MD [address] [place] [address] PCP - General 07/09/10 02/26/17 documented as of this encounter
--- OUTSIDE RECORDS SUMMARY | 2024-03-18 02:51 | XMS_ITS | Encounter Summary ---
Author Organization [facility] Address [facility] [place] [address] Care Team Providers Care Clinical Director Name Role Phone Ollie Edel QUINN Primary Care Provider Encounter Details Date Type Department Care Team (Latest Contact Info) Description 06/08/2023 9:27 PM EDT - 06/08/2023 11:59 PM EDT Hospital [place] [address] Discharge Disposition: Home Social History Tobacco Use [...] Sig Dispensed Refills Start Date End Date alendronate (Fosamax) 70 mg tablet Take 70 mg by mouth once a week. 05/01/2023 esomeprazole (NexIUM) 20 mg Capsule, Delayed Release(E.C.) Take by mouth. 01/23/2020 zolpidem (Ambien) 5 mg Tablet TAKE 0.5 TABLET BY MOUTH AT BEDTIME NEEDED FOR SLEEP 01/24/2021 documented as of this encounter Plan of Treatment Upcoming Encounters Date Type Department Care Team (Late st Contact Info) Description 04/25/2024 4:00 PM EDT Office Visit Dermatology at [place] [address] [place] [phone] Gideon Olivas MD [address], [place] [address] documented as of this encounter Procedures Procedure Name Priority Date/Time Associated Diagnosis Comments SURGICAL PATHOLOGY REPORT Routine 06/08/2023 3:30 PM EDT documented in this encounter Results * (ABNORMAL) Surgical Pathology Report (06/08/2023 3:30 PM EDT) FINAL DIAGNOSIS (AP) [id number] ? Location: OPW The signing pathologist has (i) examined the relevant preparation(s) for the specimen(s) and (ii) rendered or confirmed the diagnosis(es). . ?Surgical Pathology DIAGNOSIS A - Right nasal sidewall, skin shave biopsy: - ??Squamous cell carcinoma, present at the peripheral and deep specimen edges B - Right base of neck, skin excision: - ??Epidermal inclusion cyst Electronically signed by: ?Leeanne Alejandro MD Verified: ??06/16/2023 10:24 ??Dermatopathol ogist Performed at: ??-[facility] [place] Dept. of Pathology, [place] [address] Rim Roller Setter: Darrion Smith MD, AP, ??CLIA Certificate: [id number] DISCUSSION THIS RESULT REQUIRES PHYSICIAN/A.P.P . FOLLOW UP SPECIMEN(S) SUBMITTED A - R nasal sidewall B - R base of neck Referring Identifier: ?(not provided) CLINICAL INFORMATION A - Nonhealing erosion, treated with shave. BCC/SCC B - Follicular cyst. BCC/SCC SPECIMEN PROCESSING A - Labeled/Fixativ e: A, formalin. Quantity/Size: ??Single, 0.7 x 0.4 x 0.1 cm. Tissue Description: Shave of agosto-white skin with a 0.3 x 0.3 cm red-cuba ulcerated macule. Sections/Proces sing: Inked, trisected and entirely submitted in 1 cassette labeled A1. B - Labeled/Fixativ e: B, formalin. Quantity/Size: ??Single, 1.0 x 0.5 cm, excised to a depth of 0.7 cm. Tissue Description: Ellipse of cuba-brown skin. Sectioning reveals a 0.7 x 0.6 x 0.5 cm agosto-white cystic structure filled with agosto white paste-like contents Sections/Proces sing: Inked and entirely submitted in 2 cassettes as follows: ?B1: ??tips ?B2: ??body ??nrl(A) 06/16/2023 10:24 AM EDT [facility] SPECIMEN FROM SKIN / Unknown 06/08/2023 3:30 PM EDT 06/08/2023 3:30 PM EDT SPECIMEN FROM SKIN / Unknown 06/08/2023 3:30 PM EDT 06/08/2023 3:30 PM EDT Gideon Olivas MD PATHOLOGY/CYTOLOGY O RDERABLES [facility] [place] [address] documented in this encounter Visit Diagnoses Not on filedocumented in this encounter Care Teams Clinical Director Relationship Specialty Start Date End Date Flaquitonaomi EdelCHEYENNE cuellar [address] [place] [address] PCP - General Family Medicine 09/07/18 documented as of this encounter
--- OUTSIDE RECORDS SUMMARY | 2024-03-18 02:51 | XMS_ITS | Encounter Summary ---
Author Organization [facility] Address [facility] [place] [address] Care Team Providers Care Executive Chairman Name Role Phone Edel Levin APRN Primary Care Provider [phone] Encounter Details Date Type Department Care Team (Late st Contact Info) Description 04/08/2006 Orders [place] [address] [facility] [address] [place] [address] Social History Tobacco Use Types Packs/Day Years [...] 4:00 PM EDT Office Visit Dermatology at [place] [address] [place] [phone] Gideon Olivas MD [address], [place] [address] documented as of this encounter Procedures Procedure Name Priority Date/Time Associated Diagnosis Comments SURGICAL PATHOLOGY REPORT Routine 04/08/2006 4:26 PM EDT documented in this encounter Results * Surgical Pathology Report (04/08/2006 4:26 PM EDT) Surgical Pathology Report [id number] ? Location: The signing pathologist has (i) examined the relevant preparation(s) for the specimen(s) and (ii) rendered or confirmed the diagnosis(es). . ?Pathology Surgical Pathology Final Report Clinical Information Specimen Submitted: A - Polyp 2 mm; cecum B - 2 polyps (2 mm and 5 mm); hepatic flexure Clinical History: 3 polyps Clinical Diagnosis: Screening Gross Description A - Labeled/Fixativ e: 2 mm cecum, formalin. Qty/Size/Weight : ?Five, ranging from 0.2 cm in diameter to ?0.4 x 0.2 x 0.2 cm in greatest dimension. Tissue Description: ?? Soft, cuba-brown tissues. Sections/Proces sing: ??(T1) B - Labeled/Fixativ e: 2 polyps 2 mm and 5 mm hepatic flexure, formalin. Qty/Size/Weight : ?Three, ranging from 0.2 cm in diameter to ?0.4 x 0.3 x 0.3 cm in greatest dimension. Tissue Description: ?? Soft, cuba tissues. Sections/Proces sing: ??(T1) ??aje/PPS Microscopic Description Slides reviewed, microscopic description not recorded. Diagnosis Endoscopic biopsies - A. ??Hyperplastic polyp. B. ??Tubular adenoma. CR-PX 04/09/06 AAS 04/09/06 Verified by: ? Darrion Smith MD ?Pathologist ?(Electronic Signature) The attending pathologist whose signature appears on this report has reviewed all diagnostic slides and has edited the gross and/or microscopic portion of the report in rendering the final pathologic diagnosis. [facility] 04/08/2006 4:26 PM EDT Nilay Knutson MD PATHOLOGY/CYTOLOGY O RDERABLES [facility] documented in this encounter Visit Diagnoses Not on filedocumented in this encounter Care Teams Executive Chairman Relationship Specialty Start Date End Date Edel Levin APRN [address] [place] [address] [address] [place] [address] PCP - General Family Medicine 09/07/18 documented as of this encounter
--- OUTSIDE RECORDS SUMMARY | 2024-03-18 02:51 | XMS_ITS | Encounter Summary ---
Author Organization [facility] Address [facility] [place] [address] Care Team Providers Care Title I Director Name Role Phone Edel Levin APRN Primary Care Provider Encounter Details Date Type Department Care Team (Late st Contact Info) Description 02/22/2020 Ancillary Procedure [place] [phone] Edel Levin APRN [address] [place], [place] [address] Social History Tobacco Use Types Packs/Day Years [...] 4:00 PM EDT Office Visit Dermatology at [place] [address] [place] [address] Gideno Olivas MD [address], [place] [address] documented as of this encounter Procedures Procedure Name Priority Date/Time Associated Diagnosis Comments FILM LIBRARY STORAGE ONLY MAMMO Routine 02/22/2020 12:00 AM EDT documented in this encounter Results * Film Library- Storage Only Mammo (02/22/2020 12:00 AM EDT) Narrative [facility] - 01/24/2021 3:47 PM EDT This exam is auto-finalizing. It's purpose is for storage only. Edel Levin APRN IMG FILM LIBRARY OR DERABLES Performing Organization Address City/State/[facility] Co de Phone Number [place], [place] documented in this encounter Visit Diagnoses Not on filedocumented in this encounter Care Teams Title I Director Relationship Specialty Start Date End Date Edel Levin APRN [address] [place] [address] PCP - General Family Medicine 09/07/18 documented as of this encounter
--- OUTSIDE RECORDS SUMMARY | 2024-03-18 02:51 | XMS_ITS | Encounter Summary ---
Author Organization [facility] [place] [address] Care Team Providers Care Rewards Consultant Name Role Phone Beverly Ramirez MD Primary Care Provider [phone] Encounter Details Date Type Department Care Team (Late Contact Info) Description 08/03/2012 - 08/03/2012 11:59 PM [facility] Hospital Encounter [place] [address] [address] Ayan Temporary Pain Discharge [...] 4:00 PM EDT Office Visit Dermatology at [place] [address] [place] [address] Gideon Olivas MD [address], [place] [address] documented as of this encounter Procedures Procedure Name Priority Date/Time Associated Diagnosis Comments FILM LIBRARY STORAGE ONLY DX KNEE Routine 08/03/2012 12:00 AM EST Pain documented in this encounter Results * Film Library- Storage only DX Knee (08/03/2012 12:00 AM EST) Narrative RAD - 11/27/2015 1:11 AM EDT This exam is for storage only and is auto-finalizing. Dr Salazar [facility] FILM LIBRARY ORD ERABLES [place], [place] documented in this encounter Visit Diagnoses Diagnosis Pain Generalized pain documented in this encounter Care Teams Rewards Consultant Relationship Specialty Start Date End Date Beverly Ramirez MD [address] [place] [address] PCP - General 07/09/10 02/26/17 documented as of this encounter
--- OUTSIDE RECORDS SUMMARY | 2024-03-18 02:51 | XMS_ITS | Encounter Summary ---
Author Organization [facility] Address [facility] [place] [address] Care Team Providers Care Supervisor Finish End Name Role Phone Beverly Ramirez MD Primary Care Provider [phone] Encounter Details Date Type Department Care Team (Late st Contact Info) Description 09/29/2011 [place] [address] Trisha Santos MD [facility] [place] [address] Social History Tobacco Use Types Packs/Day Years [...] 4:00 PM EDT Office Visit Dermatology at [place] [address] [place] [address] Gideon Olivas MD [address], [place] [address] documented as of this encounter Procedures Procedure Name Priority Date/Time Associated Diagnosis Comments FILM LIBRARY STORAGE ONLY MAMMO Routine 09/29/2011 2:10 PM EST documented in this encounter Results * Film Library- Storage only Mammo (09/29/2011 2:10 PM EST) Anatomical Region Laterality Modality Other 09/29/2011 2:10 PM EST Narrative 11/17/2014 2:22 PM EDT This is a Non-reportable exam Procedure Note HOA, UNSIGNED REPORT - 11/17/2014 This is a Non-reportable exam Trisha Santos MD [facility] FILM LIBRARY ORD ERABLES documented in this encounter Visit Diagnoses Not on filedocumented in this encounter Care Teams Supervisor Finish End Relationship Specialty Start Date End Date Beverly Ramirez MD [address] [place] [address] PCP - General 07/09/10 02/26/17 documented as of this encounter
--- OUTSIDE RECORDS SUMMARY | 2024-03-18 02:51 | XMS_ITS | Encounter Summary ---
Author Organization [facility] Address [facility] [place] [address] Care Team Providers Care Load Planner Name Role Phone Beverly Ramirez MD Primary Care Provider [phone] Encounter Details Date Type Department Care Team (Late Contact Info) Description 01/21/2017 Ancillary Procedure [place] [phone] Adjovu, Edel, PRODUCTION STAFF WORKER [address] [place], [place] [id number] Social History Tobacco Use Types Packs/Day Years [...] 4:00 PM EDT Office Visit Dermatology at [place] [address] [place] [address] Gideon Olivas MD [address], [place] [address] documented as of this encounter Procedures Procedure Name Priority Date/Time Associated Diagnosis Comments FILM LIBRARY STORAGE ONLY MAMMO Routine 01/21/2017 12:00 AM EDT documented in this encounter Results * Film Library- Storage Only Mammo (01/21/2017 12:00 AM EDT) Narrative [facility] - 01/24/2021 3:51 PM EDT This exam is auto-finalizing. It's purpose is for storage only. Edel Adjovu PRODUCTION STAFF WORKER IMG FILM LIBRARY OR DERABLES [place], [place] documented in this encounter Visit Diagnoses Not on filedocumented in this encounter Care Teams Load Planner Relationship Specialty Start Date End Date Beverly Ramirez MD [address] [place] [address] PCP - General 07/09/10 02/26/17 documented as of this encounter
--- OUTSIDE RECORDS SUMMARY | 2024-03-18 02:51 | XMS_ITS | Encounter Summary ---
Author Organization [facility] Address [facility] [place] [address] Care Team Providers Care Claims Adjuster Supervisor Name Role Phone Edel Levin APRN Primary Care Provider Encounter Details Date Type Department Care Team (Late st Contact Info) Description 08/29/2020 Ancillary Procedure [place] [phone] Edel Levin APRN [address] [place], [place] [address] Social History Tobacco Use Types Packs/Day Years [...] 4:00 PM EDT Office Visit Dermatology at [place] [address] [place] [address] Gideon Olivas MD [address], [place] [address] documented as of this encounter Procedures Procedure Name Priority Date/Time Associated Diagnosis Comments FILM LIBRARY STORAGE ONLY MAMMO Routine 08/29/2020 12:00 AM EST documented in this encounter Results * Film Library- Storage Only Mammo (08/29/2020 12:00 AM EST) Narrative [facility] - 01/24/2021 3:50 PM EDT This exam is auto-finalizing. It's purpose is for storage only. Edel Adjmarcus TWISTER HAND IMG FILM LIBRARY OR DERABLES Performing Organization Address City/State/[facility] Co de Phone Number [place], [place] documented in this encounter Visit Diagnoses Not on filedocumented in this encounter Care Teams Claims Adjuster Supervisor Relationship Specialty Start Date End Date Edel Levin APRN [address] [place] [address] PCP - General Family Medicine 09/07/18 documented as of this encounter
--- OUTSIDE RECORDS SUMMARY | 2024-03-18 02:51 | XMS_ITS | Encounter Summary ---
Author Organization [facility] Address [facility] [place] [address] Care Team Providers Care Candy Attendant Name Role Phone Beverly Ramirez MD Primary Care Provider [phone] Encounter Details Date Type Department Care Team (Late st Contact Info) Description 11/17/2014 External Results XRay at [address] [place] [address] Provider, Scanning Social History Tobacco Use Types [...] 4:00 PM EDT Office Visit Dermatology at [address] [place] [phone] Gideon Olivas MD [address] [place] [address] RD, [place] [address] documented as of this encounter Procedures Procedure Name Priority Date/Time Associated Diagnosis Comments MAMMOGRAM SCAN Routine 11/23/2013 MAMMOGRAM SCAN Routine 10/07/2012 MAMMOGRAM SCAN Routine 10/04/2012 MAMMOGRAM SCAN Routine 09/29/2011 documented in this encounter Results * Scan Doc: Mammogram (11/23/2013) Anatomical Region Laterality Modality Other Scanning Provider MEDIA MGR SCAN EXT O RDR/RSLT * Scan Doc: Mammogram (10/07/2012) Anatomical Region Laterality Modality Other Scanning Provider MEDIA MGR SCAN EXT O RDR/RSLT * Scan Doc: Mammogram (10/04/2012) Anatomical Region Laterality Modality Other Scanning Provider MEDIA MGR SCAN EXT O RDR/RSLT * Scan Doc: Mammogram (09/29/2011) Anatomical Region Laterality Modality Other Scanning Provider MEDIA MGR SCAN EXT O RDR/RSLT documented in this encounter Visit Diagnoses Not on filedocumented in this encounter Care Teams Candy Attendant Relationship Specialty Start Date End Date Beverly Ramirez MD [address] [place] [address] PCP - General 07/09/10 02/26/17 documented as of this encounter
--- OUTSIDE RECORDS SUMMARY | 2024-03-18 02:51 | XMS_ITS | Encounter Summary ---
Author Organization [facility] Address [facility] [place] [address] Care Team Providers Care Floor Press Operator Name Role Phone Edel Levin APRN Primary Care Provider Encounter Details Date Type Department Care Team (Late st Contact Info) Description 02/27/2020 Ancillary Procedure [place] [phone] Edel Levin APRN [address] [place], [place] [address] Social History Tobacco Use Types Packs/Day Years [...] 4:00 PM EDT Office Visit Dermatology at [place] [address] [place] [address] Gideon Olivas MD [address], [place] [address] documented as of this encounter Procedures Procedure Name Priority Date/Time Associated Diagnosis Comments FILM LIBRARY STORAGE ONLY MAMMO Routine 02/27/2020 12:00 AM EDT documented in this encounter Results * Film Library- Storage Only Mammo (02/27/2020 12:00 AM EDT) Narrative [facility] - 01/24/2021 3:49 PM EDT This exam is auto-finalizing. It's purpose is for storage only. Edel Levin APRN IMG FILM LIBRARY OR DERABLES Performing Organization Address City/State/[facility] Co de Phone Number [place], [place] documented in this encounter Visit Diagnoses Not on filedocumented in this encounter Care Teams Floor Press Operator Relationship Specialty Start Date End Date Edel Levin APRN [address] [place] [address] PCP - General Family Medicine 09/07/18 documented as of this encounter
--- OUTSIDE RECORDS SUMMARY | 2024-03-18 02:51 | XMS_ITS | Encounter Summary ---
Author Organization [facility] [place] [address] Care Team Providers Care House Designer Name Role Phone Beverly Ramirez MD Primary Care Provider Reason for Referral * Physical Therapy (Routine) - Closed Specialty Diagnoses / Procedures Referred By Contac t Referred To Contact Diagnoses Primary osteoarthritis of both knees Sabine Meyer MD [facility] [address] OR[place]OPAED[place] [address] Unknown None Referral ID Status Reason Start Date Expiration Date V isits Requested Visits Authorized [id number] Closed Evaluate and Treat 12/12/2015 06/09/2016 12 12 Reason for Visit * Reason Comments Bilateral Knee Pain * Consultation (Routine) - Closed Specialty Diagnoses / Procedures Referred By Contac t Referred To Contact Orthopaedics Diagnoses Bilateral DJD, ? TKR Beverly Ramirez MD [address] [place] [address] [facility] [address] [place] [phone] Referral ID Status Reason Start Date Expiration Date V isits Requested Visits Authorized [id number] Closed Consult, Test & Treat [facility] PCP Updated and/or Approved 11/23/2015 11/22/2016 1 1 Encounter Details Date Type Department Care Team (Latest Contact Info) Description 12/12/2015 2:00 PM EDT Office [place] [address] Ray Tillman MD [facility] [place] [address] Primary osteoarthritis of both knees Social History Tobacco Use Types Packs/Day Years [...] Sign Reading Time Taken Comments Blood Pressure 144/77 12/12/2015 1:39 PM EDT Pulse 76 12/12/2015 1:39 PM EDT Temperature - - Respiratory Rate - - Oxygen Saturation - - Inhaled Oxygen Concentration - - Weight 61.7 kg (136 lb) 12/12/2015 1:39 PM EDT Height 161.3 cm (5' 3.5) 12/12/2015 1:39 PM EDT Body Mass Index 23.71 12/12/2015 1:39 PM EDT documented in this encounter Progress Notes * Sabine Meyer MD - 12/12/2015 2:39 PM EDT CHIEF COMPLAINT: Bilateral knee pain. HPI: Ms. Pat is a very pleasant 70-year-old female who presents with longstanding bilateral knee pain. She states that she has had pain for roughly over 5 years or so that seems to be worse with activity. She says that both knees are almost identical with respect to the pain, and she localizes to the anterior aspect of both knees. While she relates that she can walk for miles and miles, she does have significant pain while attempting to climb stairs or rise from a seated position. Additionally, when she is trying to kick while in the pool, she also says that she has pain over the front of her knee. She also has a sensation of being extremely weak in her quadriceps. She has not done any formal physical therapy, although she has seen a primary care physician in the [facility] who has given her several injections over the past 4 years, the most recent of which was July of 2015. She used to get 6 months of relief from each injection; however, she states over the last 2 or 3 injections, they have been decreasing to only 3 months of relief. She also relates that she has some numbness and tingling over her right anteromedial rios and has had some history of back issues, including a disk herniation with some radiculopathy; however, today she denies any true radicular symptoms. PAST MEDICAL HISTORY: None. PAST SURGICAL HISTORY: None. ALLERGIES AND MEDICATIONS: Reviewed in eD-H. SOCIAL HISTORY: Patient currently lives with her . She is retired. Denies smoking. Drinks roughly 1-2 alcoholic drinks per day. FAMILY HISTORY: Negative. REVIEW OF SYSTEMS: As per HPI. Otherwise negative. PHYSICAL EXAM: In general, patient is a very pleasant 70-year-old female in no acute distress, alert and oriented x3. Examination of her gait reveals a normal gait with no antalgia and no varus or valgus thrust. On supine examination, she has excellent range of motion bilaterally, with full extension to roughly 135 degrees of flexion on both knees. No varus or valgus instability. No limb length discrepancy. She does have a strongly positive Victorino test bilaterally, with pain over the IT band insertions bilaterally. Also has an absent patellar reflex on the right side, with a normal patellar reflex on the left side. Sensation is intact to light touch distally. Motor exam is intact distally. IMAGING: X-rays of bilateral knees demonstrate some evidence of early arthritis in her medial and lateral compartments on both knees; however, she does have significant evidence of patellofemoral disease, worse on the left than on the right, with joint space narrowing and large osteophytes. PROCEDURES: After discussion of the risks and benefits, we prepped both knees and proceeded with corticosteroid injection using a superomedial approach to the knee. We injected 4 mL of Kenalog 10 in addition to 5 mL of 1% lidocaine without epinephrine. Patient tolerated the procedure well without any complications. ASSESSMENT AND PLAN: Ms. Pat is a 70-year-old female who we saw for bilateral knee arthritis. It seems as though her arthritis is primarily patellofemoral, and this seems to fit with her presenting symptoms of pain only with squatting or climbing stairs. Additionally, she has extremely tight IT bands and weak quadriceps, so she was given a referral to Physical Therapy in order to work on these factors. She wishes to put off knee replacement as long as possible, and this sounds like a reasonable option for her, and we would be happy to see her back at any point if she wishes to discuss either total knee arthroplasty or undergo repeat injection. I saw and evaluated the patient on the date of the primary author's note. I have reviewed and agree with the findings and the plan of care as outlined in their note, with the following additions or alterations: Bilateral patellofemoral arthritis. We discussed in detail the ladder of arthritis care. We discussed both operative and nonoperative options. Currently, she would like to continue with nonoperative management. Injections were performed as above. We are happy to see her back to discuss further options or interventions if her discomfort persists. Ray Tillman MD, MS Orthopaedic Surgery Attending documented in this encounter Plan of Treatment Upcoming Encounters Date Type Department Care Team (Late st Contact Info) Description 04/25/2024 4:00 PM EDT Office Visit Dermatology at [place] [address] [place] [address] Gideon Olivas MD [address], [place] [address] Scheduled Referrals Name Type Priority Associated Diagnoses Orde r Schedule Referral to Physical Therapy Outpatient Referral Routine Primary osteoarthritis of both knees Ordered: 12/12/2015 documented as of this encounter Visit Diagnoses Diagnosis Primary osteoarthritis of both knees Primary localized osteoarthrosis, lower leg documented in this encounter Administered Medications Inactive Administered Medications - up to 3 most recent administrations Medication Order MAR Action Action Date Dose Rate Site triamcinolone acetonide (KENALOG) injection 40 mg 40 mg, Intra-articular, ONCE, 1 dose, On Thu12/12/15 at 1515, Routine Given 12/12/2015 2:45 PM EDT 40 mg documented in this encounter Care Teams House Designer Relationship Specialty Start Date End Date Beverly Ramirez MD [address] [place] [address] PCP - General 07/09/10 02/26/17 documented as of this encounter
--- OUTSIDE RECORDS SUMMARY | 2024-03-18 02:51 | XMS_ITS | Encounter Summary ---
Author Organization [facility] Address [facility] [place] [address] Care Team Providers Care Press Feeder Name Role Phone Beverly Ramirez MD Primary Care Provider Encounter Details Date Type Department Care Team (Late st Contact Info) Description 09/24/2011 9:30 AM EST - 09/24/2011 10:15 AM EST Surgery [place] [address] Nilay Knutson MD [facility] [address] [place]STRO[place] [address] COLONOSCOPY, DIAGNOSTIC (WRVU 3.26) Social History Tobacco Use Types Packs/Day Years [...] occurs please contact your M.D. Please call [phone] before 5pm with problems, questions or concerns. After 5pm call [phone] and ask to speak with the chief warden aws consultant. Discharge instructions reviewed with patient who expresses's understanding. * Patient Instructions* Nilay Knutson MD - 09/24/2011 10:17 AM EST Please see Recommendations in the Provation procedure report which is documented in the procedural note in E-DH. * Attachments The following attachments cannot be sent through Care Everywhere. * COLONOSCOPY: WHAT TO EXPECT AT HOME (KYRGYZ) documented in this encounter Medications at Time of Discharge Medication Sig Dispensed Refills Start Date End Date zolpidem (AMBIEN) 5 mg tablet Take 2.5 mg by mouth nightly as needed. 03/07/2019 calcium carbonate (TUMS) 200 mg (500 mg) chewable tablet 04/08/2006 12/12/2015 documented as of this encounter H&P Notes * Nilay Knutson MD - 09/24/2011 9:38 AM EST [...] chloride 0.9% infusion 30 mL/hr Intravenous Continuous Nilay Knutson MD 30 mL/hr (09/24/11850) Last Dose: [...] file FamHx: no CRC PE: Filed Vitals: 09/24/11 0915 BP: 155/79 Pulse: 85 Resp: 18 Mental Status Examination: normal. Airway Examination: normal oropharyngeal airway and neck mobility. Respiratory Examination: clear to auscultation. CV Examination: RRR, no murmurs, no S3 or S4. GI Exam:Normal bowel sounds, abdomen soft, nontender, no palpable masses. A/P: Ijeoma Pat is a 66 y.o. y/o female patient here for evaluation of h/o colon polyps. Here for colonoscopy. Nilay Knutson MD Seismology Technical Officerstatistical secretary Division of Gastroenterology and Hepatology documented in this encounter Miscellaneous Notes * Miscellaneous - Provider, Scanning - 09/25/2011 1:28 AM EST * OR Attestation - Nilay Knutson MD - 09/24/2011 10:17 AM EST Attestation: Case Date: 09/24/2011 I performed this procedure without the involvement of a resident. NILAY KNUTSON MD 09/24/2011 * Op Note - Nilay Knutson MD - 09/24/2011 10:17 AM EST [facility] Operative Note Patient Name: Ijeoma Pat : [id number] MR#: [id number] Case Date: 09/24/2011 Surgeon: Surgeon(s) and Role: * NILAY KNUTSON MD - Primary Preoperative diagnosis: phx of polyps (needs health program specialist anes) Postoperative diagnosis: no new polyps, berry-diverticulosis Procedure(s): COLONOSCOPY, DIAGNOSTIC Full procedure note is documented under the Procedure section of eDH. * Miscellaneous - Provider, Scanning - 09/24/2011 9:26 AM EST documented in this encounter Plan of Treatment Upcoming Encounters Date Type Department Care Team (Late st Contact Info) Description 04/25/2024 4:00 PM EDT Office Visit Dermatology at [place] [address] [facility] [facility] [place] [address] Gideon Olivas MD [address], [place] A DERMATOLOGY [place], [place] [id number] documented as of this encounter Procedures Procedure Name Priority Date/Time Associated Diagnosis Comments COLONOSCOPY, DIAGNOSTIC (WRVU 3.26) 09/24/2011 9:42 AM EST phx of polyps (needs health program specialist anes) COLONOSCOPY Routine 09/24/2011 9:28 AM EST documented in this encounter Results * COLONOSCOPY (09/24/2011 9:28 AM EST) COLONOSCOPY [facility] Endoscopy Patient Name: Ijeoma Pat ? Procedure Date: 09/24/2011 9:28 AM ? Date of : 1945 ? Age: 66 ? Order #: [id number] ? Procedure: ? Colonoscopy Indications: ? High risk colon cancer surveillance: ? Personal history of colonic polyps Providers: ? Nilay Knutson MD, Charlotte Silva, ? RN, Farshad Morse RN, Jonathan Olmos, ? Cloth Laminating Supervisor Referring : ?Beverly Ramirez MD Medicines: ? Fentanyl 125 micrograms IV, Midazolam ? 4 mg IV, Promethazine 25 mg IV Complications: ? No immediate complications. Procedure: ? Pre-Anesthesia Assessment: ? - [place] Protocol: ? - Pre-procedure Verification: Prior ? [...] PROVATION documented in this encounter Visit Diagnoses Not on filedocumented in this encounter Administered Medications Inactive Administered Medications - up to 3 most recent administrations Medication Order MAR Action Action Date Dose Rate Site fentaNYL 50mcg/mL injection ONCE PRN, Starting on Thu09/24/11 at 0946, Until Thu09/24/11 at 1550, Pain, Intra-Operative (Intra-Procedure), Routine Given 09/24/2011 10:03 AM EST 25 mcg Given 09/24/2011 9:58 AM EST 25 mcg Given 09/24/2011 9:52 AM EST 25 mcg midazolam (VERSED) injection ONCE PRN, Starting on Thu09/24/11 at 0950, Until Thu09/24/11 at 1550, Sleep, Intra-Operative (Intra-Procedure), Routine Given 09/24/2011 10:07 AM EST 1 mg Given 09/24/2011 9:55 AM EST 1 mg Given 09/24/2011 9:50 AM EST 2 mg promethazine (PHENERGAN) injection ONCE PRN, Nausea, Starting on Thu09/24/11 at 0949, Until Thu09/24/11 at 1550, Avoid extravasation, Intra-Operative (Intra-Procedure) Given 09/24/2011 9:56 AM EST 12.5 mg Given 09/24/2011 9:49 AM EST 12.5 mg sodium chloride 0.9% infusion 30 mL/hr, Intravenous, [...] RN) documented in this encounter Care Teams Press Feeder Relationship Specialty Start Date End Date Beverly Ramirez MD [address] [place] [address] PCP - General 07/09/10 02/26/17 documented as of this encounter
--- OUTSIDE RECORDS SUMMARY | 2024-03-18 02:51 | XMS_ITS | Encounter Summary ---
Author Organization [facility] Address [facility] [place] [address] Care Team Providers Care Map Plotter Name Role Phone Beverly Ramirez MD Primary Care Provider [phone] Reason for Visit * Reason Comments Suture / Staple Removal Encounter Details Date Type Department Care Team (Late st Contact Info) Description 09/06/2015 4:45 PM EST Office Visit Dermatology at [address] [place] [address] Gideon Olivas MD [address] [place] [address], [place] [address] Visit for suture removal Social History Tobacco [...] Progress Notes * Gideon Olivas MD - 09/06/2015 5:20 PM EST Problem: Followup for suture removal and biopsy results. 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 Margins were clear. Physical examination shows good healing of the excision site. The patient had no postoperative complications. Things appear to be healed well. Assessment and Plan: Status post excision, basal cell cancer, superficial type, left frontoparietal scalp. a. Sutures removed. b. May DC wound care instructions. c. Return to clinic in another six months for repeat check. Thereafter, I think we can go back to less frequent visits, perhaps once every year or two or three. COPY: Beverly Ramirez M.D. documented in this encounter Plan of Treatment Upcoming Encounters Date Type Department Care Team (Late st Contact Info) Description 04/25/2024 4:00 PM EDT Office Visit Dermatology at [place] [address] [facility] [place] [address] Gideon Olivas MD [address], [place] [address] documented as of this encounter Visit Diagnoses Diagnosis Visit for suture removal Encounter for removal of sutures documented in this encounter Care Teams Map Plotter Relationship Specialty Start Date End Date Beverly Ramirez MD [address] [place] [address] PCP - General 07/09/10 02/26/17 documented as of this encounter
--- OUTSIDE RECORDS SUMMARY | 2024-03-18 02:51 | XMS_ITS | Encounter Summary ---
Author Organization [facility] Address [facility] [place] [address] Care Team Providers Care Programming Engineer Name Role Phone AnaEdel velazquez [place] Primary Care Provider Reason for Visit * Reason Comments Annual Exam Encounter Details Date Type Department Care Team (Late st Contact Info) Description 04/17/2022 3:15 PM EDT Office Visit Dermatology at [address] [phone] Gideon Olivas MD [address] [place] [address], [place] [address] History of SCC (squamous cell carcinoma) of [...] Progress Notes * Gideon Olivas MD - 04/17/2022 3:15 PM EDT Problem: 1. ??Yearly skin checkup 2. ??History of multiple non-melanoma cutaneous malignancies. 3. ??History of BCCA right posterior calf September 2019 4. ??History BCCA right anterior rios February 2019 Ijeoma follows up for her yearly skin checkup. She is now 77. Patient has not noted any particular lesions of concern. Physical examination reveals a pleasant 77-year-old woman who has numerous seborrheic keratoses present widely on her back or flanks and a moderate cuba. She has no evidence of any recurrent malignancies on her right lower extremity. She has early follicular cyst developing on the right lateral baseof her neck. Examination of the head and the neck the chest the back the hands the arms from thighsand calves is benign. There is no evidence of any actinic or versus superficial BCCA/Dixon's disease on the mid nasal bridge. Assessment plan: Benign skin examination 1. Patient reassured about her benign skin examination 2. No treatment necessary today 3. Return to clinic in a year for repeat check Follicular cyst right base of neck 1. This is new over the last year 2. If this continues to grow and does not resolve spontaneously patient will call for a 30-minute appointment for excision of this. Seborrheic keratoses irritated left anterior thigh right lateral thigh 1. Could consider LN2 therapy for the sites CC: Edel Levin APRN documented in this encounter Plan of Treatment Upcoming Encounters Date Type Department Care Team (Late st Contact Info) Description 04/25/2024 4:00 PM EDT Office Visit Dermatology at [place] [address] [place] [address] Gideon Olivas MD [address], [place] [address] documented as of this encounter Visit Diagnoses Diagnosis History of SCC (squamous cell carcinoma) of skin Personal history of other malignant neoplasm of skin History of basal cell carcinoma Personal history of other malignant neoplasm of skin Seborrheic keratosis Other seborrheic keratosis documented in this encounter Care Teams Programming Engineer Relationship Specialty Start Date End Date Edel Levin APRN [address] [place] [address] [address] [facility] [address] [place] [address] PCP - General Family Medicine 09/07/18 documented as of this encounter
--- OUTSIDE RECORDS SUMMARY | 2024-03-18 02:51 | XMS_ITS | Encounter Summary ---
Author Organization [facility] Address [facility] [place] [address] Care Team Providers Care Supervisor Putty And Caluking Name Role Phone Beverly Ramirez MD Primary Care Provider [phone] Encounter Details Date Type Department Care Team (Late st Contact Info) Description 11/28/2015 Ancillary Procedure [place] [phone] Adjovu, Edel, VALUE STREAM COACH [address] [place], [place] [id number] Social History Tobacco Use Types Packs/Day Years [...] 4:00 PM EDT Office Visit Dermatology at [place] [address] [place] [address] Gideon Olivas MD [address], [place] [address] documented as of this encounter Procedures Procedure Name Priority Date/Time Associated Diagnosis Comments FILM LIBRARY STORAGE ONLY MAMMO Routine 11/28/2015 12:00 AM EDT documented in this encounter Results * Film Library- Storage Only Mammo (11/28/2015 12:00 AM EDT) Narrative [facility] - 01/24/2021 3:48 PM EDT This exam is auto-finalizing. It's purpose is for storage only. Edel Adjovu VALUE STREAM COACH IMG FILM LIBRARY OR DERABLES [place], [place] documented in this encounter Visit Diagnoses Not on filedocumented in this encounter Care Teams Supervisor Putty And Caluking Relationship Specialty Start Date End Date Beverly Ramirez MD [address] [place] [address] PCP - General 07/09/10 02/26/17 documented as of this encounter
--- OUTSIDE RECORDS SUMMARY | 2024-03-18 02:51 | XMS_ITS | Encounter Summary ---
Author Organization [facility] [place] [address] Care Team Providers Care Mine Captain Name Role Phone Beverly Ramirez MD Primary Care Provider [phone] Reason for Visit * Reason Comments Follow-up Encounter Details Date Type Department Care Team (Late st Contact Info) Description 02/28/2016 4:15 PM EDT Office Visit Dermatology at [address] [place] [phone] Gideon Olivas MD [address] [facility], [place] [address] Basal cell carcinoma Social History Tobacco Use [...] Progress Notes * Gideon Olivas MD - 02/28/2016 4:15 PM EDT PROBLEM: 1. Repeat skin checkup. 2. History of BCCA, multisuperficial type, left frontoparietal scalp, August 2015. 3. History of basal/squamous-cell carcinoma, right medial sidewall, March 2010. 4. 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 Ijeoma follows up for her 6-month check. She has been doing well. She is here just to have her skin checked 6 months after her superficial BCCA of the left frontoparietal scalp. Physical examination revealed a pleasant, almost 71-year-old woman who has a well-healed scar in the left frontoparietal scalp within the hair part. Careful examination of the rest of the scalp, the face, the ears, the neck, the entire back, hands, arms, forearms, and legs is benign. She continues to have a 1-cm, large, dark, seborrheic keratosis behind and below her left ear. She has 2 seborrheic keratoses present on the left anterior thigh. She has well-healed surgical scars at prior sites of treatment without evidence of any recurrent non-melanoma skin cancer. ASSESSMENT AND PLAN: History of non-melanoma cutaneous malignancies. A. No evidence of recurrence at prior sites. B. Patient congratulated and reassured that the left frontoparietal scalp site appears well healed without evidence of recurrence. C. Recommend that I see her now on a once-yearly basis for routine skin checkups. The patient is agreeable to this. D. Continue sun avoidance precautions. Return to clinic here in 1 year. Cc: Bveerly Ramirez MD documented in this encounter Plan of Treatment Upcoming Encounters Date Type Department Care Team (Late st Contact Info) Description 04/25/2024 4:00 PM EDT Office Visit Dermatology at [address] [address] Gideon Olivas MD [address] [facility], [place] [address] documented as of this encounter Visit Diagnoses Diagnosis Basal cell carcinoma Basal cell carcinoma of skin, site unspecified documented in this encounter Care Teams Mine Captain Relationship Specialty Start Date End Date Beverly Ramirez MD [address] [place] [address] PCP - General 07/09/10 02/26/17 documented as of this encounter
--- OUTSIDE RECORDS SUMMARY | 2024-03-18 02:51 | XMS_ITS | Encounter Summary ---
Author Organization [facility] Address [facility] [place] [address] Care Team Providers Care Advertising Layout Worker Name Role Phone Beverly Ramirez MD Primary Care Provider [phone] Reason for Visit * Reason Comments Skin Check Encounter Details Date Type Department Care Team (Late st Contact Info) Description 08/21/2015 10:00 AM EST Office Visit Dermatology at [address] [place] [phone] Gideon Olivas MD [address], [place] [address] Basal cell carcinoma Social History Tobacco Use [...] * Patient Instructions* Laura Aquino LPN - 08/21/2015 10:19 AM EST Images from the original note were not included. [facility] Seborrheic Keratosis: After Your Visit Your Care Instructions Seborrheic keratoses are raised skin growths that look scaly or warty. They usually look like they were stuck onto the skin. They most often grow in groups on the back or chest and are more common inolder people. A seborrheic keratosis can be cuba or dark brown. A seborrheic keratosis is not a moleand never turns into cancer. But it is still a good idea to check your skin regularly. Sometimes a seborrheic keratosis can itch. Scratching it can cause it to bleed and sometimes even scar. A seborrheic keratosis is removed only if it bothers you. The doctor will freeze it or scrape it off with a tool. The doctor can also use a laser to remove a seborrheic keratosis. Treatment usually results in normal-looking skin, but it can leave a light or dark cecil or even a scar on the skin. Follow-up care is a macdonald part of your treatment and safety. Be sure to make and go to all appointments, and call your doctor if you are having problems. It's also a good idea to know your test resultsand keep a list of the medicines you take. How can you care for yourself at home? ?? If clothing irritates your seborrheic keratosis, cover it with a bandage to prevent rubbing and bleeding. ?? If you have a seborrheic keratosis removed, clean the area with soap and water two times a day unless your doctor gives you different instructions. Don't use hydrogen peroxide or alcohol, which can slow healing. ?? You may cover the wound with a thin layer of petroleum jelly, such as Vaseline, and a nonstick bandage. ?? Check all the skin on your body once a month for skin growths or other changes, such as color and feel of the skin. ?? bilingual speech therapist front of a full-length mirror. Look carefully at the front and back of your body. Then look at your right and left sides with your arms raised. ?? Bend your elbows and look carefully at your forearms, the back of your upper arms, and your palms. ?? Look at your feet, the soles of your feet, and the spaces between your toes. ?? Use a hand mirror to look at the back of your legs, the back of your neck, and your back, rear end (buttocks), and genital area. Part the hair on your head to look at your scalp. ?? If you see a change in a skin growth, contact your doctor. Look for: ?? A mole that bleeds. ?? A fast-growing mole. ?? A scaly or crusted growth on the skin. ?? A sore that will not heal. When should you call for help? Call your doctor now or seek immediate medical care if: ?? You have an area of normal skin that suddenly changes in shape, size, or how it looks. ?? Your skin is badly broken from scratching. ?? You have signs of infection such as: ?? Pain, warmth, or swelling in your skin. ?? Red streaks near a wound in your skin. ?? Pus coming from a wound in your skin. ?? A fever not due to the flu or other illness. Watch closely for changes in your health, and be sure to contact your doctor if: ?? You do not get better as expected. Where can you learn more? Visit our vogogo information library at [email or web address] You can also view health information on [employer]tingXpert, your personal patient account. Log in or sign up today. Enter Z945 in the search box to learn more about Seborrheic Keratosis: After Your Visit. ?? [id number] [employer]. Care instructions adapted under license by [facility]. This care instruction is for use with your licensed healthcare professional. If you have questions about a medical condition or this instruction, always ask your healthcare professional. [employer] disclaims any warranty or liability for your use of this information. Content Version: 10.4.238417; Current as of: October 26, 2013 documented in this encounter Progress Notes * Gideon Olivas MD - 08/21/2015 10:39 AM EST Problems: 1. Repeat skin checkup. 2. History of numerous seborrheic keratoses. 3. History of basal/squamous cell carcinoma, right nasal sidewall, March 2010. 4. 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 Ijeoma follows up and has been doing well. She is here because she is concerned about a lesion on the left frontoparietal scalp and along her hair part line. It has been there for at least a year. It seems to become larger, smaller, occasionally sore, and it can even bleed. Her hairdresser alerted her to its presence. Physical examination reveals a 7-mm, pearly papule on the left frontoparietal scalp concerning for possible BCCA. Otherwise, fortunately, examination of this 70-year-old woman is benign of the head and neck, chest, back, hands, arms, forearms, thighs, calves, and soles of the feet. There is no evidence of any malignant lesions. She has numerous seborrheic keratoses on her back, one on the left anterior shoulder, and several on her arms. She has numerous solar lentigos. Assessment and Plan: 1. Seborrheic keratoses a. Patient reassured about benign seborrheic keratoses. 2. History of multiple nonmelanoma cutaneous malignancies. a. No evidence of recurrence. b. Patient reassured. 3. Probable BCCA, left frontoparietal scalp in hair part line. a. Discussed diagnosis. b. I recommended excision. c. We will set aside a 45-minute appointment for excision of this on a next-available basis. d. I answered patient questions regarding the procedure. COPY: Beverly Ramirez M.D. documented in this encounter Plan of Treatment Upcoming Encounters Date Type Department Care Team (Late st Contact Info) Description 04/25/2024 4:00 PM EDT Office Visit Dermatology at [place] [address] [place] [address] Gideon Olivas MD [address] [facility] [place] [address] documented as of this encounter Visit Diagnoses Diagnosis Basal cell carcinoma Basal cell carcinoma of skin, site unspecified documented in this encounter Care Teams Advertising Layout Worker Relationship Specialty Start Date End Date Beverly Ramirez MD [address] [place] [address] PCP - General 07/09/10 02/26/17 documented as of this encounter
--- OUTSIDE RECORDS SUMMARY | 2024-03-18 02:51 | XMS_ITS | Encounter Summary ---
Author Organization [facility] [place] [address] Care Team Providers Care Stable Cleaner Name Role Phone Edel Levin APRN Primary Care Provider Encounter Details Date Type Department Care Team (Late st Contact Info) Description 02/27/2020 12:05 AM EDT Ancillary Procedure [place] [phone] Edel Levin APRN [address] [place], [place] [address] Social History Tobacco Use Types Packs/Day Years [...] 4:00 PM EDT Office Visit Dermatology at [place] [address] [place] [phone] Gideon Olivas MD [address], [place] [address] documented as of this encounter Procedures Procedure Name Priority Date/Time Associated Diagnosis Comments FILM LIBRARY-STORAGE ONLY US BREAST Routine 02/27/2020 12:05 AM EDT documented in this encounter Results * Film Library Storage Only US Breast (02/27/2020 12:05 AM EDT) Narrative [facility] - 01/24/2021 3:50 PM EDT This exam is auto-finalizing. It's purpose is for storage only. Edel Adjmarcus QUINN IMG FILM LIBRARY OR DERABLES Performing Organization Address City/State/[facility] Co de Phone Number [place], [place] documented in this encounter Visit Diagnoses Not on filedocumented in this encounter Care Teams Stable Cleaner Relationship Specialty Start Date End Date Edel Levin APRN [address] [place] [address] PCP - General Family Medicine 09/07/18 documented as of this encounter
--- OUTSIDE RECORDS SUMMARY | 2024-03-18 02:51 | XMS_ITS | Encounter Summary ---
Author Organization [facility] Address [facility] [place] [address] Care Team Providers Care Setup Technician Name Role Phone Beverly Ramirez MD Primary Care Provider [phone] Encounter Details Date Type Department Care Team (Latest Contact Info) Description 12/12/2015 12:58 PM EDT - 12/12/2015 11:59 PM EDT Hospital Encounter XRay at [address] [place] [address] Ray Tillamn MD [facility] [place] [address] Pain in both knees, unspecified chronicity Discharge Disposition: Home Social History Tobacco Use [...] PM EDT Office Visit Dermatology at [address] [place] [address] Gideon Olivas MD [address], [place] [address] documented as of this encounter Procedures Procedure Name Priority Date/Time Associated Diagnosis Comments XR JOINT TEAM STANDING ALIGNMENT AP LAT SCHUSS SKYLINE BILAT Routine 12/12/2015 1:21 PM EDT Pain in both knees, unspecified chronicity documented in this encounter Results * XR Joint Team Standing Alignment AP Lat Schuss [place] Bilateral (12/12/2015 1:21 PM EDT) Anatomical Region Laterality Modality Bilateral Digital Radiogra phy Impressions 12/12/2015 1:45 PM EDT IMPRESSION: 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 Narrative 12/12/2015 1:45 PM EDT EXAMINATION: XR JOINT TEAM STANDING ALIGNMENT AP LAT SCHUSS SKYLINE BILATERAL CLINICAL HISTORY: BILATERAL KNEE PAIN TECHNIQUE: Separate images of the pelvis, knees and feet were acquired in the AP projection with the patient standing. These images were stitched together to form a composite image of the pelvis and legs allowing for evaluation of lower extremity alignment in the weight bearing position. Four additional views of the knee were taken. COMPARISON: Multiple views of the left knee February 06, 2015 FINDINGS: Bilateral medial deviation of weightbearing axes; x 2.2 cm right and 1.1 cm left. No left suprapatellar effusion. Patella are well located within the patellofemoral spaces. Bilateral mild knee joint space narrowing with small tibial spine osteophytes. Procedure Note Lora Hill MD - 12/12/2015 EXAMINATION: XR JOINT TEAM STANDING ALIGNMENT AP LAT SCHUSS SKYLINEBILATERAL CLINICAL HISTORY: BILATERAL KNEE PAIN TECHNIQUE: Separate images of the pelvis, knees and feet were acquired inthe AP projection with the patient standing. These images were stitched togetherto form a composite image of the pelvis and legs allowing for evaluation oflower extremity alignment in the weight bearing position. Four additional viewsof the knee were taken. COMPARISON: Multiple views of the left knee February 06, 2015 FINDINGS: Bilateral medial deviation of weightbearing axes; x 2.2 cm rightand 1.1 cm left. No left suprapatellar effusion. Patella are well locatedwithin the patellofemoral spaces. Bilateral mild knee joint space narrowing withsmall tibial spine osteophytes. 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 Ray Tillman MD IMG DX ORDERABLES documented in this encounter Visit Diagnoses Diagnosis Pain in both knees, unspecified chronicity documented in this encounter Care Teams Setup Technician Relationship Specialty Start Date End Date Beverly Ramirez MD [address] [place] [address] PCP - General 07/09/10 02/26/17 documented as of this encounter
--- OUTSIDE RECORDS SUMMARY | 2024-03-18 02:51 | XMS_ITS | Encounter Summary ---
Author Organization [facility] Address [facility] [place] [address] Care Team Providers Care Form Building Supervisor Name Role Phone Ollie Edel QUINN Primary Care Provider Reason for Visit * Reason Comments Suture / Staple Removal Encounter Details Date Type Department Care Team (Late st Contact Info) Description 09/17/2018 3:45 PM EST Office Visit Dermatology at [address] [phone] Gideon Olivas MD [address] [place] [address], [place] [address] History of SCC (squamous cell carcinoma) of [...] Progress Notes * Gideon Olivas MD - 09/17/2018 3:45 PM EST Problem: Follow-up for suture removal of results Ijeoma follows up and the biopsy did come back showing a seborrheic keratosis. There was no sign of any malignancy. Physical examination shows good healing of the biopsy site. Assessment plan: Seborrheic keratosis inflamed, with no evidence of tumor 1. Patient reassured about benign results 2. Sutures removed 3. Return to clinic in February for her regular scheduled annual skin checkup. Note: Patient has an irritated seborrheic keratosis on the left postauricular scalp. Today the sitewas anesthetized and removed for her with shave biopsy, submitted for pathologic analysis, at the patient's request. Warned about the potential for regrowth over time at the same location of this benign lesion. CC: Edel Levin APRN documented in this encounter Plan of Treatment Upcoming Encounters Date Type Department Care Team (Late st Contact Info) Description 04/25/2024 4:00 PM EDT Office Visit Dermatology at [place] [address] [facility] [place] [address] Gideon Olivas MD [address] [facility], [place] [address] documented as of this encounter Visit Diagnoses Diagnosis History of SCC (squamous cell carcinoma) of skin Personal history of other malignant neoplasm of skin Seborrheic keratosis Other seborrheic keratosis History of basal cell carcinoma Personal history of other malignant neoplasm of skin documented in this encounter Care Teams Form Building Supervisor Relationship Specialty Start Date End Date Edel Levin APRN [address] [facility] [address] [place] [address] PCP - General Family Medicine 09/07/18 documented as of this encounter
--- OUTSIDE RECORDS SUMMARY | 2024-03-18 02:51 | XMS_ITS | Encounter Summary ---
Author Organization [facility] Address [facility] [place] [address] Care Team Providers Care Assembler Liquid Center Name Role Phone Beverly Ramirez MD Primary Care Provider [phone] Encounter Details Date Type Department Care Team (Late st Contact Info) Description 10/07/2012 Orders [place] [address] Trisha Santos MD [facility] [place] [address] Social History Tobacco Use Types Packs/Day Years [...] 4:00 PM EDT Office Visit Dermatology at [place] [address] [place] [address] Gideon Olivas MD [address], [place] [address] documented as of this encounter Procedures Procedure Name Priority Date/Time Associated Diagnosis Comments FILM LIBRARY STORAGE ONLY MAMMO Routine 10/07/2012 2:10 PM EST documented in this encounter Results * Film Library- Storage only Mammo (10/07/2012 2:10 PM EST) Anatomical Region Laterality Modality Other 10/07/2012 2:10 PM EST Narrative 11/17/2014 2:25 PM EDT This is a Non-reportable exam Procedure Note HOA, UNSIGNED REPORT - 11/17/2014 This is a Non-reportable exam Trisha Santos MD [facility] FILM LIBRARY ORD ERABLES documented in this encounter Visit Diagnoses Not on filedocumented in this encounter Care Teams Assembler Liquid Center Relationship Specialty Start Date End Date Beverly Ramirez MD [address] [place] [address] PCP - General 07/09/10 02/26/17 documented as of this encounter
--- OUTSIDE RECORDS SUMMARY | 2024-03-18 02:51 | XMS_ITS | Encounter Summary ---
Author Organization [facility] Address [facility] [place] [address] Care Team Providers Care Telemarketing Supervisor Name Role Phone Ollie Edel APRN Primary Care Provider Reason for Visit * Reason Comments Skin Check Encounter Details Date Type Department Care Team (Late st Contact Info) Description 03/08/2020 3:30 PM EDT Office Visit Dermatology at [address] [phone] Gideon Olivas MD [address] [place] [address], [place] [address] History of SCC (squamous cell carcinoma) of [...] Progress Notes * Gideon Olivas MD - 03/08/2020 3:30 PM EDT Problem: 1. ??Yearly skin checkup 2. ??History of multiple non-melanoma cutaneous malignancies. 3. 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 History BCCA right anterior rios February 2019 Ijeoma follows up today for her yearly skin checkup. She is been doing well and has not noted any new lesions of concern. She does states that on a few occasions is been a spot on her nose that has bled. Physical examination reveals a pleasant 74-year-old woman who is moderately tanned and has numerousseborrheic keratoses on the back and flanks. Careful examination of the head and the neck the chestand the back the hands the arms of forearms the thighs and the calves is unremarkable. There is no evidence of any recurrence at the above-noted 2 most recently treated BCCA sites. Today I do not seeany abnormal skin findings on the bridge of her nose, no evidence of any tumor there. Assessment and plan: Benign skin examination in a patient with a history of multiple nonmelanoma cutaneous malignancies 1. Patient reassured today about her benign skin examination 2. Continue to try to follow sun avoidance precautions. 3. Return to clinic in another year for repeat check sooner if new lesions of concern. History of intermittent bleeding from bridge of nose 1. Continue to monitor this area. 2. No evidence today of any neoplasm. CC: Edel Levin APRN documented in this encounter Plan of Treatment Upcoming Encounters Date Type Department Care Team (Late st Contact Info) Description 04/25/2024 4:00 PM EDT Office Visit Dermatology at [place] [address] [facility] [place] [address] Gideon Olivas MD [address] [facility], [place] [address] documented as of this encounter Visit Diagnoses Diagnosis History of SCC (squamous cell carcinoma) of skin Personal history of other malignant neoplasm of skin History of basal cell carcinoma Personal history of other malignant neoplasm of skin Seborrheic keratosis Other seborrheic keratosis documented in this encounter Care Teams Telemarketing Supervisor Relationship Specialty Start Date End Date Edel Levin APRN [address] [facility] [address] [place] [address] PCP - General Family Medicine 09/07/18 documented as of this encounter
--- OUTSIDE RECORDS SUMMARY | 2024-03-18 02:51 | XMS_ITS | Encounter Summary ---
Author Organization [facility] Address [facility] [address] Care Team Providers Care Can Repairer Name Role Phone Ollie Edel APRN Primary Care Provider Reason for Visit * Reason Comments Skin Check Encounter Details Date Type Department Care Team (Late st Contact Info) Description 10/04/2019 2:30 PM EST Office Visit Dermatology at [address] [place] [phone] Gideon Olivas MD [address] [facility] [place] [address] History of SCC (squamous cell carcinoma) of [...] as of this encounter Progress Notes * Giedon Olivas MD - 10/04/2019 2:30 PM EST Problem: New skin lesions of concern right medial calf Ijeoma follows up today earlier than her regular scheduled February visit because of a growing lesion onthe right medial calf. Crusting scabs and does not heal. Physical examination reveals a 1cm crusting scabbing area consistent with SCCA versus BCC on the right medial calf. Assessment and plan: Rule out SCC versus BCCA right medial calf 1. After obtaining informed patient consent, the site was anesthetized and removed with shave C&D x3 2. After curettage, the site measured 1.3 cm in diameter 3. Triple antibiotic ointment and Band-Aid placed 4. Wound care treatments plans given 5. Patient will keep her February appointment for complete skin checkup at that time. Cc: Edel Levin APRN documented in this encounter Plan of Treatment Upcoming Encounters Date Type Department Care Team (Late st Contact Info) Description 04/25/2024 4:00 PM EDT Office Visit Dermatology at [place] [address] [facility] [place] [address] Gideon Olivas MD [address] [facility] [place] [address] documented as of this encounter Procedures Procedure Name Priority Date/Time Associated Diagnosis Comments LAB SCAN 10/04/2019 12:00 AM EST documented in this encounter Results * SCAN DOC: LAB (10/04/2019 12:00 AM EST) Narrative 10/04/2019 12:00 AM EST Ordered by an unspecified provider. Scanning Provider MEDIA MGR SCAN EXT O RDR/RSLT documented in this encounter Visit Diagnoses Diagnosis History of SCC (squamous cell carcinoma) of skin Personal history of other malignant neoplasm of skin History of basal cell carcinoma Personal history of other malignant neoplasm of skin documented in this encounter Care Teams Can Repairer Relationship Specialty Start Date End Date Edel Levin APRN [address] [place] [address] [place] [address] PCP - General Family Medicine 09/07/18 documented as of this encounter
--- OUTSIDE RECORDS SUMMARY | 2024-03-18 02:51 | XMS_ITS | Encounter Summary ---
Author Organization [facility] Address [facility] [place] [address] Care Team Providers Care Lead Sql Developer Name Role Phone Anastacia Ruby APRN Primary Care Provider [phone] Encounter Details Date Type Department Care Team (Late st Contact Info) Description 01/27/2018 Ancillary Procedure [place] [phone] Edel Levin APRN [address] [place] [address] [place], [place] [address] Social History Tobacco Use Types Packs/Day Years [...] 4:00 PM EDT Office Visit Dermatology at [place] [address] [facility] [place] [phone] Gideon Olivas MD [address] [facility] [facility] [address], [place] [facility] [place] [place], [place] [id number] documented as of this encounter Procedures Procedure Name Priority Date/Time Associated Diagnosis Comments FILM LIBRARY STORAGE ONLY MAMMO Routine 01/27/2018 12:00 AM EDT documented in this encounter Results * Film Library- Storage Only Mammo (01/27/2018 12:00 AM EDT) Narrative BRO - 01/24/2021 3:49 PM EDT This exam is auto-finalizing. It's purpose is for storage only. Edel Adjovu VIAL GAUGER IMG FILM LIBRARY OR DERABLES [place], [place] documented in this encounter Visit Diagnoses Not on filedocumented in this encounter Care Teams Lead Sql Developer Relationship Specialty Start Date End Date Anastacia Ruby APRN PCP - General Family Medicine 02/27/17 09/06/18 documented as of this encounter
--- OUTSIDE RECORDS SUMMARY | 2024-03-18 02:51 | XMS_ITS | Encounter Summary ---
Author Organization [facility] [place] [address] Care Team Providers Care Telehealth Case Manager Name Role Phone Beverly Ramirez MD Primary Care Provider [phone] Reason for Visit * Reason Comments Skin Check Encounter Details Date Type Department Care Team (Late st Contact Info) Description 05/16/2013 11:00 AM EDT Office Visit Dermatology [address] [place] [address] Gideon Olivas MD [address] [place] [address] RD, [place] [address] History of basal cell carcinoma (Primary Dx); Seborrheic keratosis; Solar lentigo Social History Tobacco Use Types Packs/Day Years Used Date Smoking Tobacco: Former Alcohol Use Standard Drinks/Week Comments Yes 7 (1 standard drink = 0.6 oz pur e alcohol) Sex and Gender Information Value Date Recorded Sex Assigned at Not on file Gender Identity Not on file Sexual Orientation Not on file documented as of this encounter Progress Notes * Gideon Olivas MD - 05/16/2013 11:30 AM EDT Problem List: 1. Repeat skin checkup. 2. History of numerous seborrheic keratoses. 3. History of basal/squamous cell carcinoma, right nasal sidewall, March 2010. 4. History of BCCAs, left cheek May 1995, left anterior shoulder July 1996, and left bridge of nose October 1997. Ijeoma follows up and has been doing well. She is here for regular skin check. It has been since 2009 that I saw her last. She does enjoy the sun, but does use sunscreen every day. Physical examination reveals a pleasant 68-year-old woman who has numerous seborrheic keratoses on the back, the flanks, left anterior thigh, and one on the left nape of her neck. Fortunately, careful examination of the head and the neck, the chest, the back, the hands, arms, forearms, thighs, calves, the feet including soles of feet and toe web spaces is benign. There is no evidence of any malignant lesions. There is no evidence of recurrence of tumors at the previously treated sites as outlined above. The patient does have two solar lentigos on her left lateral cheek. Assessment and Plan: 1. Seborrheic keratoses. a. Patient reassured about benign seborrheic keratoses. 2. History of multiple nonmelanoma cutaneous malignancies. a. No evidence of recurrence. b. Patient reassured. 3. Solar lentigo, left cheek. a. LN2 times two applied lightly at this site to fade this. b. Recommended continuing sun avoidance precautions. Did recommend Neutrogena sunscreen with Helioplex. c. Return to clinic in two to three years for repeat check. Return to clinic reminder at three years. COPY: Beverly Ramirez M.D. documented in this encounter Plan of Treatment Upcoming Encounters Date Type Department Care Team (Late st Contact Info) Description 04/25/2024 4:00 PM EDT Office Visit Dermatology at [address] [phone] Gideon Olivas MD [address] [facility], [place] [address] documented as of this encounter Visit Diagnoses Diagnosis History of basal cell carcinoma- Primary Personal history of other malignant neoplasm of skin Seborrheic keratosis Other seborrheic keratosis Solar lentigo Other dyschromia documented in this encounter Care Teams Telehealth Case Manager Relationship Specialty Start Date End Date Beverly Ramirez MD [address] [place] [address] PCP - General 07/09/10 02/26/17 documented as of this encounter
--- OUTSIDE RECORDS SUMMARY | 2024-03-18 02:51 | XMS_ITS | Encounter Summary ---
Author Organization [facility] [place] [address] Care Team Providers Care Heel Coverer Name Role Phone Ollie Edel QUINN Primary Care Provider [phone] Reason for Visit * Reason Comments Annual Exam Encounter Details Date Type Department Care Team (Late st Contact Info) Description 04/15/2021 3:00 PM EDT Office Visit Dermatology at [address] [phone] Gideon Olivas MD [address] [place] [address], [place] [address] History of SCC (squamous cell carcinoma) of skin; History of basal cell carcinoma; Seborrheic keratosis; AK (actinic keratosis) Social History Tobacco Use [...] Progress Notes * Gideon Olivas MD - 04/15/2021 3:00 PM EDT Problem: 1. ??Yearly skin checkup 2. ??History of multiple non-melanoma cutaneous malignancies. 3. 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 History BCCA right anterior rios February 2019 ?? Ijeoma follows up for her yearly skin checkup. She has been doing well. She continues to have an area on her nose that would bleed once in a while on nasal bridge. Otherwise she has no lesions of concern. Physical examination reveals a pleasant 76-year-old woman who has numerous seborrheic keratoses present on her back and flanks and a moderate cuba. Fortunately careful examination of the head and the neck the chest the back the hands the arms informs thighs and the calves is unremarkable. She has an erythematous patch on the mid nasal bridge potentially consistent with superficial BCC or SCCA/actinic keratosis. 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 LN 2 x 2 applied aggressively to site 2. If this does not resolve, then return to clinic in the next month or 2 for biopsy of site. 3. I explained to the patient that if this continues to bleed she should return to clinic to see dav in the next month or 2 and not wait a year History of nonmelanoma cutaneous malignancies 1. No evidence of recurrence 2. Patient assured. Encouraged sun avoidance precautions 3. Return to clinic in 1 year. CC: Edel Levin APRN documented in this encounter Plan of Treatment Upcoming Encounters Date Type Department Care Team (Late st Contact Info) Description 04/25/2024 4:00 PM EDT Office Visit Dermatology at [place] [address] [facility] [place] [address] Gideon Olivas MD [address] [facility], [place] [address] documented as of this encounter Visit Diagnoses Diagnosis History of SCC (squamous cell carcinoma) of skin Personal history of other malignant neoplasm of skin History of basal cell carcinoma Personal history of other malignant neoplasm of skin Seborrheic keratosis Other seborrheic keratosis AK (actinic keratosis) Actinic keratosis documented in this encounter Care Teams Heel Coverer Relationship Specialty Start Date End Date Edel Levin APRN [address] [facility] 1 [place] [address] PCP - General Family Medicine 09/07/18 documented as of this encounter
[2024-03-18 14:10] LABS: Anion Gap 8.8 mmol/L (3-11); BUN 14 mg/dL (7-18); CO2 27.2 mmol/L (21.0-32.0); CREATININE 0.8 mg/dL (0.55-1.02); Calculated LDL 129 mg/dL (<100); Chloride 104 mmol/L (98-107); Cholesterol 223 mg/dL (<200); Estimated GFR 75.84 (mL/min/1.73m2); Glucose 99 mg/dL (74-106); HDL Cholesterol 71 mg/dL (40-60); Sodium 140 mmol/L (136-145); TSH (W/Ref FT4) 1.63 uIU/mL (0.36-3.74); Triglyceride 119 mg/dL (<150); Vitamin D 25 Total 59.6 ng/mL (30-100)
[2024-03-18 23:22] LABS: HBs Antibody, Quant <3.1 mIU/mL (See Note); Hep B Surface Ab Negative (See Note); Hepatitis B Core Antibody Negative (Negative); Hepatitis B Surface Antigen Negative (Negative)
[2024-03-20 09:14] LABS: HIV-1/2 Ag & Ab Screen Negative (Negative)
== END 2024-03-18 02:34 | disposition home or self-care (01) ==
LOC: LBO 02:33
PROVIDERS: PCP Nurse Practitioner Family; Visit Provider Nurse Practitioner Family
DX: R73.03 Prediabetes (principal); E78.5 Hyperlipidemia, unspecified; M81.0 Age-related osteoporosis without current pathological fracture; Z11.59 Encounter for screening for other viral diseases; Z11.4 Encounter for screening for human immunodeficiency virus [HIV]
CPT/HCPCS: 36415; 80048; 80061; 82306; 86704; 86706; 87340; 87389; 83036; 84443

== ENCOUNTER → 2024-05-23 14:16 | Outpatient (BNVA) | payer MEDICARE, BC, SELFPAY | PROVIDERS: PCP Nurse Practitioner Family; Referring Provider Nurse Practitioner Family; Visit Provider Student in an Organized Health Care Education/Training Program | DX: M17.11 Unilateral primary osteoarthritis, right knee (principal) | CPT/HCPCS: 20610; J1010 ==

== ENCOUNTER 2024-08-18 04:06 | Outpatient (CLI) | payer MEDICARE, BC, SELFPAY ==
[2024-08-18 12:07] LABS: HGB 14.5 g/dL (11.2-15.7); MCH 31.4 pg (27.0-33.0); MCHC 33.7 % (32.0-36.0); MCV 93 fL (80-95); MPV 8.8 fL (8.0-11.0); Platelet Count 291 10^3/uL (130-400); RBC 4.62 10^6/uL (3.93-5.22); RDW 12.6 % (11.7-14.6); RDW-SD 43.4 fL; WBC 5.72 10^3/uL (4.4-10.8)
[2024-08-18 12:47] LABS: BUN 11 mg/dL (7-18); CREATININE 0.8 mg/dL (0.55-1.02); Calcium 9.1 mg/dL (8.5-10.1); Chloride 108 mmol/L (98-107); Estimated GFR 75.37 (mL/min/1.73m2); Glucose 93 mg/dL (74-106); Potassium 3.9 mmol/L (3.5-5.1); Sodium 143 mmol/L (136-145)
== END 2024-08-18 04:07 | disposition home or self-care (01) ==
LOC: LBO 04:06
PROVIDERS: PCP Nurse Practitioner Family; Visit Provider Student in an Organized Health Care Education/Training Program
DX: M17.11 Unilateral primary osteoarthritis, right knee (principal); Z01.818 Encounter for other preprocedural examination
CPT/HCPCS: 36415; 80048; 85027

== ENCOUNTER 2024-08-30 08:19 | Day surgery (SDC) | payer MEDICARE, BC, SELFPAY ==
[2024-08-26 10:30] VITALS: BP 171/81; PULSE 73; RESP 20; TEMP 36.3; O2SAT 98
[2024-08-30] VITALS (20 sets, daily range): BP systolic 121–175; BP diastolic 49–93; PULSE 57–82; RESP 10–32; TEMP 36–36.7; O2SAT 97–100; BMI 25.2
--- NOTE | 2024-08-30 07:28 | PDOC.DSDIS_ITS ---
Date of service: 08/30/24 Discharge Plan Disposition Patient Disposition: Home Condition: Good Discharge Details Reason For Visit: Right knee DJD Attending Provider: See Malloy Primary Care Provider: Edel Levin Home Meds and New Rx's Prescriptions: New celecoxib [Celebrex] 200 mg capsule 200 mg PO BID PRNQty: 60 0RF Rx Instructions: Take one tablet twice daily for pain and inflammation aspirin 81 mg tablet,delayed release (DR/EC) 81 mg PO BID 30 Days Qty: 60 0RF acetaminophen 500 mg tablet 1,000 mg PO Q8H PRN Qty: 90 0RF Rx Instructions: Take two tablets up to every 8 hours as needed for pain dexamethasone 4 mg tablet 4 mg PO DAILY Qty: 2 0RF Rx Instructions: Take one tablet once daily for two days docusate sodium [Colace] 100 mg capsule 100 mg PO BID Qty: 30 0RF gabapentin 300 mg capsule 300 mg PO QHS Qty: 14 0RF Rx Instructions: Take one tablet at bedtime oxycodone 5 mg tablet 5 mg PO Q4H PRNQty: 18 0RF Rx Instructions: Take one tablet up to every 4 hours as needed for severe postoperative pain Continued esomeprazole magnesium [Nexium] 20 mg capsule,delayed release(DR/EC) 20 mg PO DAILY PRN zolpidem 5 mg tablet 2.5 mg PO QHS PRN (Reason: sleep) Qty: 30 0RF fluorometholone 0.1 % drops,suspension 1 drp ophthalmic (eye) BID alendronate [Fosamax] 70 mg tablet 70 mg PO QWEEK Qty: 15 3RF simethicone [Gas-X Extra Strength] 125 MG tablet,chewable 125 mg PO PRN PRN Discontinued naproxen sodium [Aleve] 220 mg capsule 220 mg PO BID PRN ibuprofen [Advil] 200 mg tablet 200 mg PO TID-QID PRN No Action diphenhydramine HCl [Benadryl] 25 mg capsule 25 mg PO QHS Discharge Instructions Additional Instructions: Total Knee Discharge Instructions Activity: The most important activity is to walk and to work on gentle motion (both flexion and extension). You should try to take short walks a few times a day. It is important that when resting you work on keeping the knee straight. Avoid putting a pillow behind the knee as this will encourage flexion. Work on range of motion exercises as provided by Physical Therapy. - Start outpatient physical therapy within 2 weeks. - You should wear the HARRISON hose on both legs for 2 weeks. You may remove these at night. You may also use any compression sock in place of the HARRISON hose. - Utilize [employer] to review exercises, see videos on exercises and obtain basic information pertaining to your surgery and your recovery. Dressing: Remove the Minesh wrap by 2 days after your surgery and put on the HARRISON stocking given to you from the hospital. Keep the surgical dressing (underneath the MINESH wrap) in place for at least one week. After the first week it may be removed and replaced with light gauze and tape or nothing. The wound and dressing may get wet after 3 days but avoid soaking the dressing or otherwise it will need to be changed. Many people prefer covering the dressing with cling wrap (saran wrap) to minimize it from getting soaked. If it gets wet, just pat dry. If it starts to peel off then it will need to be changed. Medications: - You should take Tylenol and anti-inflammatory Celebrex as your primary pain control medications. If the Celebrex is too expensive or not covered, please call the office for another alternative (Advil/Ibuprofen or Naproxen/Aleve) - You have been prescribed a stronger pain medication Oxycodone for breakthrough pain, take as needed as prescribed. - You take a stomach acid reduction agent Esomeprazole at baseline - continue with this medication to help reduce stomach acid and reflux. - You have been prescribed Gabapentin to take at night for restlessness and nerve pain. - You will be taking Aspirin 81mg twice a day for DVT prevention unless instructed otherwise. - You have also been prescribed Decadron to take to control post-operative nausea and pain. You will start this tomorrow. - If you have constipation you should take Colace (which has been prescribed) or Miralax (which is available [id number]). It takes most people 3-4 days to have a bowel movement. Follow-up: 2 weeks If you have any acute concerns or questions, please do not hesitate to contact the office at [phone]. You may contact Dr. Malloy with any questions after hours through the hospital at [phone] or on his cell phone at [phone]. Referrals: See Malloy MD [ [facility] STAFF PHYSICIAN] - Equipment/Supplies: Walker Activity:: Elevate Remove Dressings/Wound Care:: Do Not Remove Shower/Bathe:: Cover Diet:: As Tolerated Discharge Orders Discharge Orders: Discharge Order (Routine); Ordered 08/30/24 Ordered By: Maria M Sanz
[2024-08-30] MEDS: Celecoxib 200 MG CAP 400 MG PO (09:10)
[2024-08-30] MEDS: Gabapentin 300 MG CAP PO (09:10)
[2024-08-30] MEDS: Acetaminophen 500 MG TAB 1000 MG PO (09:11)
[2024-08-30] MEDS: Lactated Ringers 1,000 ML 80 ML IV (09:30)
--- NOTE | 2024-08-30 09:55 | ANES.PREOP_ITS ---
General Info Date of Service Date Performed: 08/30/24 Height: 5 ft 3 in Weight: 64.6 kg Body Mass Index (BMI): 25.2 Surgical Procedure: Operation Date: 08/30/24 10:55 Proposed Procedure Side Surgeon p Knee Total Arthroplasty, Cemented Right See Malloy MD Meds Allergies and Home Medications Allergies Allergy/AdvReac Type Severity Reaction Status Date / Time naproxen AdvReac Intermediate GI UPSET, Verified 08/30/24 08:57 DIDNT FEEL WELL ON IT temazepam AdvReac Intermediate headache Verified 08/30/24 08:57 Home Medication ?Medication ?Instructions ?Recorded simethicone 125 mg chewable tablet 125 mg PO PRN PRN 08/19/17 (Gas-X Extra Strength) esomeprazole magnesium 20 mg 20 mg PO DAILY PRN 01/23/20 capsule,delayed release (Nexium) zolpidem 5 mg tablet 2.5 mg (1/2 x 5 mg) PO QHS PRN 03/07/24 sleep #30 tabs alendronate 70 mg tablet (Fosamax) 70 mg PO QWEEK #15 tabs 06/16/24 fluorometholone 0.1 % eye 1 drp ophthalmic (eye) BID 08/18/24 drops,suspension acetaminophen 500 mg tablet 1,000 mg (2 x 500 mg) PO Q8H PRN 08/30/24 pain #90 tabs aspirin 81 mg tablet,delayed 81 mg PO BID 30 days #60 tabs 08/30/24 release celecoxib 200 mg capsule (Celebrex) 200 mg PO BID PRN #60 caps 08/30/24 dexamethasone 4 mg tablet 4 mg PO DAILY #2 tabs 08/30/24 diphenhydramine HCl 25 mg capsule 25 mg PO QHS 08/30/24 (Benadryl) docusate sodium 100 mg capsule 100 mg PO BID #30 caps 08/30/24 (Colace) gabapentin 300 mg capsule 300 mg PO QHS #14 caps 08/30/24 oxycodone 5 mg tablet 5 mg PO Q4H PRN #18 tabs 08/30/24 Current Visit Medications: Current Medications Generic Name Dose Route Start Last Admin Trade Name Freq PRN Reason Stop Dose Admin Acetaminophen 1,000 mg 08/30/24 06:00 08/30/24 09:11 Acetaminophen 500 Mg Tab PO 08/30/24 23:59 1,000 mg PREOP GINA Administration Celecoxib 400 mg 08/30/24 06:00 08/30/24 09:10 Celecoxib 200 Mg Cap PO 08/30/24 23:59 400 mg PREOP GINA Administration Gabapentin 300 mg 08/30/24 06:00 08/30/24 09:10 Gabapentin 300 Mg Cap PO 08/30/24 23:59 300 mg PREOP GINA Administration Hydromorphone HCl 0.5 mg 08/30/24 07:26 Hydromorphone 2 Mg/Ml Syr IVP 09/29/24 07:25 Q2H PRN PRN Ringer's Solution 1,000 mls @ 80 mls/hr 08/30/24 06:00 08/30/24 09:30 IV 08/30/24 23:59 80 mls/hr INFUSION GINA Administration Cefazolin Sodium/Dextrose 2 gm in 50 mls @ 100 mls/hr 08/30/24 06:00 Ancef Duplex IVPB 08/30/24 23:59 PREOP GINA Tranexamic Acid/Sodium Chloride 1,000 mg in 100 mls @ 600 mls/hr 08/30/24 06:00 IVPB 08/30/24 23:59 PREOP GINA Cefazolin Sodium/Dextrose 1 gm in 50 mls @ 100 mls/hr 08/30/24 08:00 Ancef Duplex IVPB 08/31/24 00:29 Q8H GINA IV Miscellaneous Supplies 1 each 08/30/24 06:00 Iv Access IV 08/30/24 23:59 DIRECTED GINA Oxycodone HCl 0 mg 08/30/24 07:26 Oxycodone 5 Mg Tab PO 09/29/24 07:25 Q3H PRN PRN Pain Sodium Chloride 0 ml 08/30/24 06:00 Normal Saline Flush 10 Ml Syr IV 08/30/24 23:59 PRN PRN Sodium Chloride 0 ml 08/30/24 06:00 Normal Saline 10 Ml Vial IJ 08/30/24 23:59 DIRECTED PRN Sterile Water 0 ml 08/30/24 06:00 Water,Injection,Sterile 10 Ml Vial IJ 08/30/24 23:59 DIRECTED PRN PFSH Active Problems Active Problems: Problem Status Onset Code History of total right knee replacement Acute 08/30/24 Z96.651 Osteoporosis Chronic M81.0 Prediabetes Chronic R73.03 Hyperlipidemia Chronic E78.5 Insomnia Chronic G47.00 Microscopic hematuria Chronic R31.29 Urinary, incontinence, stress female Chronic N39.3 Sensorineural hearing loss (SNHL) of both ears Acute H90.3 Medical History Medical History Basal cell carcinoma Tubular adenoma of colon GERD (gastroesophageal reflux disease) Surgical History Surgical History S/P colonoscopy (09/2023) biopsies S/P cystoscopy (02/15/18) S/P trigger finger release (01/12/18) Left thumb 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) Tobacco Smoking/Tobacco Use Status: Former Tobacco Use Passive smoking exposure: Yes Second hand exposure: Yes Alcohol Alcohol Intake: current Alcohol intake frequency: 0-2 drinks per day Alcohol type: hard liquor Substance Use Substance use: Never Substance use type: does not use Prental History History 2 Para 2 Hx # Term Pregnancies Multiple births Hx # Pregnancies Ectopic pregnancies AB induced Hx Number of Living Children 2 AB spontaneous Vital Signs and Lab Results Vital Signs Most Recent Vital Signs in EMR: Most Recent Vital Signs Temp Pulse Resp BP Pulse Ox 36.7 C 82 16 175/92 H 100 08/30/24 08:45 08/30/24 08:45 08/30/24 08:45 08/30/24 08:45 08/30/24 08:45 Lab Results Blood Type / Crossmatch: No Data to Display Complete Blood Count: White Blood Count 5.72 10^3/uL (4.4-10.8) 08/18/24 11:51 Red Blood Count 4.62 10^6/uL (3.93-5.22) 08/18/24 11:51 Hemoglobin 14.5 g/dL (11.2-15.7) 08/18/24 11:51 Hematocrit 43.0 % (36.0-46.0) 08/18/24 11:51 Platelet Count 291 10^3/uL (130-400) 08/18/24 11:51 Complete Metabolic Panel: Sodium 143 mmol/L (136-145) 08/18/24 11:51 Potassium 3.9 mmol/L (3.5-5.1) 08/18/24 11:51 Chloride 108 mmol/L (98-107) H 08/18/24 11:51 Carbon Dioxide 28.0 mmol/L (21.0-32.0) 08/18/24 11:51 BUN 11 mg/dL (7-18) 08/18/24 11:51 Creatinine 0.8 mg/dL (0.55-1.02) 08/18/24 11:51 Est GFR (CKD-EPI 2020) 75.37 (mL/min/1.73m2) 08/18/24 11:51 Calcium 9.1 mg/dL (8.5-10.1) 08/18/24 11:51 Glucose 93 mg/dL (74-106) 08/18/24 11:51 Liver Function Panel: No Data to Display Coagulation Panel: 2 No Data to Display Cardiac Panel: No Data to Display Arterial Blood Gas: No Data to Display Venous Blood Gas: No Data to Display Pancreas Panel: No Data to Display Thyroid Panel: No Data to Display Infectious Disease: No Data to Display Blood Cultures: No Data to Display Toxicology Panel: No Data to Display Anesthesia Assessment and Plan Anesthesia History Personal History: No History of Anesthesia Complications Family History: No Family History of Anesthesia Complications Exercise Tolerance Exercise Tolerance: Metabolic Equivalents>4 Pertinent Negatives Pertinent Negatives: No Symptoms of GERD, No Major Cardiovascular Symptoms or Complaints, No Major Pulmonary Symptoms or Complaints and No History of CVA/TIA Cardiac & Pulmonary Exam Cardiac Exam: Normal S1/S2 Heart Sounds Pulmonary Exam: Clear Bilateral Breath Sounds Implantable Cardiac Device Does patient have a Pacemaker or an ICD?: No Airway Exam Known Difficult Airway: No Mallampati Class: 3 Mouth Opening: Narrow (< 3cm) Thyromental Distance: Greater than 3 cm Neck Range of Motion: Full ROM Neck Circumference: Normal Teeth Condition: Normal Dentition ASA Classification ASA Score: ASA 2 Emergency Case?: No NPO Status NPO Status: NPO Clears >2 hours, Solids >8 hours Anesthesia Plan Resuscitation Status: Full Code Anesthesia Technique: Spinal Anesthesia Airway Planned: Natural Airway Pain Management: Surgeon and patient request nerve block Monitors Used: Standard Monitors and SedLine Preoperative Comments:: Discussed recent head injury at length and lack of imaging. Significant raccoon eye presentation and large bump to right forehead. Discussed avoiding benzos, lower dose sedation, use of sedline. Using spinal as our primary for this case.
--- NOTE | 2024-08-30 10:43 | ROE_ITS ---
Operative Note Operative Note PRE-OP DIAGNOSIS: Right Knee Osteoarthritis POST-OP DIAGNOSIS: same PROCEDURE: Right Total Knee Replacement SURGEON: See Malloy TRACTOR TRAILER TECHNICIAN: Maria M Sanz ANESTHESIA TYPE: Spinal Refer to Anesthesia Record ESTIMATED BLOOD LOSS: 100 PATHOLOGY: none sent COMPLICATIONS: None Patient was transported to: PACU Patient's condition: stable Implants: 1. Depuy Attune Cruciate Retaining Femoral Component, Size 5 2. Depuy Attune Fixed Bearing Tibial Component, Size 4 3. Depuy Attune 5x6 CR,FB Poly 4. Depuy Attune Patellar Component, Size 38 Indications: I have seen Ijeoma in clinic for symptoms of knee arthritis, confirmed with radiographic findings. She has exhausted nonoperative methods and was having significant limitations in daily function and desired better function and less pain. I discussed the technical details of a knee replacement. I explained the risks of the procedure to include, but not limited to, bleeding, infection, pain, stiffness, fracture, damage to nerves and vessels, damage to muscles and tendons, loosening, need for repeat procedure, blood clot and cardiopulmonary demise. Despite these risks, Ijeoma elected to proceed. Findings: There was significant signs of arthritis throughout the knee, most prominent in the patellofemoral compartment with significant deformity. Procedure Description: Ijeoma was greeted in the preoperative holding area where the correct side was identified and marked. The consent was reviewed with the patient and signed. The history and physical was updated. All questions were answered. Preoperative mediacations were administered: Acetaminophen 1000mg, Celebrex 400mg, and Gabapentin 300mg. An adductor canal block was then administered by the anesthesia team in the DSU. Ijeoma was taken back to the operating room. A spinal anesthestic was then administered. The patient was placed into the supine position on the operating room table. Posts were placed for positioning during the procedure. All bony prominences were well padded. Prophylactic antibiotics in the form of Cefazolin were administered. 1g of Tranxemic Acid was given intravenously within 30 minutes of incision. The right leg was then prepped with Chloraprep and draped in a standard fashion with impervious stockinette and extremity drape. A second prep with Chloraprep was performed prior to placing Ioband. A timeout to confirm correct identity, side and site, procedure, allergies, anesthesia, and medical concerns was performed. With the knee in some flexion, a midline incision was made overlying the knee. Full thickness skin flaps were raised once the extensor mechanism was encountered. These were raised medially and laterally. Any bleeding was controlled with electrocautery. Once the extensor mechanism was fully exposed, a medial parapatellar arthrotomy was performed in a flexed position. All bleeding from the arthrotomy and the geniculate arteries was coagulated. A medial subperiosteal peel was performed with electrocautery to the midcoronal plane. The fat pad was removed while keeping the patellar tendon protected. The anterior distal femur synovium was removed for later visualization. The ACL and PCL were resected and the anterior horn of the lateral meniscus was transected. The knee was then flexed with the patella everted. Large osteophytes from the tibia were removed. Large osteophytes from the femur were removed. There was notable deformity of the trochlea and of the patella. Using a step drill, and based on preoperative templating, the femoral canal was entered. This was done with a step drill without any difficulty. The intramedullary distal femoral cut guide was inserted, set to a 6 degree valgus cut and 9mm cut thickness. The distal femoral cut guide was then held in position and pinned. With the soft tissues protected, the distal cut was performed. This was passed over a few times to ensure a planar cut. I then turned attention to the tibia. The extramedullary guide was placed onto the leg. The distal aspect was slid medial to adjust for position of center of ankle and stay in line with shaft of the tibia. Approximately 5 degrees of posterior slope was kept in the proximal cutting guide. The center of the guide was aligned with the PCL. The stylus was used to assess cut thickness. The medial side, most involved side, was set for a 4mm cut. This was then held in position and pinned into place with 2 additional pins and a cross pin for stability. The medial and lateral collateral ligaments were protected and the cut was performed. With this completed, it was assessed and noted to be of appropriate dimensions. The guide was removed. A spacer block was inserted and the knee was brought into extension. The 6mm spacer block provided full extension, without hyperextension and with stability of both the medial and lateral collateral ligaments was assessed. The pins from the femur and the tibia were then removed. The distal femur was then sized. The anterior stylus was placed onto the lateral ridge of the anterior femur. This indicated a size 5 femur. The external rotation of the guide was adjusted to 3 degrees to match the epicondylar axis, perpendicular to Abram?s line. The 4-in-1 cutting guide was the placed. The posterior medial femur cut was evaluated and appeared of good thickness. The spacer block was inserted underneath the cutting guide and stability was confirmed in 90 degrees of flexion. An richard wing was used to confirm appropriate position of the anterior cut to avoid notching. This cutting guide was ensured to be flush on the cut surface and then pinned into place with headed pins. While protecting the soft tissues, quad tendon, and collateral ligaments, the anterior and posterior cuts were performed with a saw. The central two pins were removed and the posterior and anterior chamfers were cut next. The notch-cutting guide was placed. This was pinned to lateralize the femoral component as much as possible while keeping it flush on the cut surface. This was then pinned into position. A reciprocating saw was used to make the small notch cut. A trial CR femoral component was then inserted, impacted down to the cut surfaces, and the lug holes were drilled. A provisional trial tibial component was placed and the knee was brought through range of motion. There was noted to be excellent extension and flexion. There was no significant instability. The patella was tracking without thumbs. The tibial cut surface was fully exposed. The medial and lateral menisci were removed. The tibia was then sized as a 4. The tibia had been previously marked during trialing to correspond to the center of the tibial component to help with rotation. The trial was aligned to this cecil, approximately rotated to the medial 1/3rd of the tibial tubercle. The trial was pinned into place. The tibia was prepared with a reamer and a keel punch. The knee was then brought into extension and the patella was measured as 21mm. Using the patellar clamp and cut guide, this was resected to a flat surface with at least 13mm of thickness remaining. The size 38 patella fit the best. This was oriented and then clamped into position. The lugs were drilled. The trial components were removed. The final components, except for the polyethylene were opened on the back table. The periosteal and capsular tissues, especially posteriorly, around the knee were then systematically injected with a periarticular cocktail consisting of 246mg of Ropivacaine, 0.5mg of Epinephrine, 0.08mg of Clonidine, and 30mg of Ketorolac, diluted to 100cc.. The tourniquet was then inflated to 275mmHg. The knee was thoroughly irrigated with a pulse lavage and dried. On the back table, with the implants opened, the cement was mixed. 2 batches of medium viscosity cement were prepared with vacuum assistance. After the cement was ready it was placed on to the back side of the tibial component. A small amount was placed onto the posterior flange of the femur. Cement was manual pressurized and impregnated into the cut surface of the tibia. The tibial component was then inserted into the cut surface and impacted into position. Excess cement was removed and the component was reimpacted. Again, excess cement was removed and our attention was then turned to the femur. The femoral cut surface was once again dried and cement was manually impacted into the cut surface. The femoral component was lined with the lug holes and impacted. Excess cement was removed. It was ensured to be down against the cut surface. The trial polyethylene was then inserted and the leg was brought out into full extension for the duration of the cement curing process, approximately 18min. Cement was lastly manually impacted into the cut surface of the patella and the patellar button was clamped into position and held. During this process attention was turned to the gutters of the knee and for all interfaces for any excess cement. While the cement was hardening, the knee was irrigated with Surgiphor Betadine solution. It was allowed to sit in the knee for 3 minutes and then it was thoroughly irrigated with saline. After the cement had finally cured, approximately 18min, the clamp was removed from the patella and the knee was taken through range of motion. A size 6mm polyethylene component provided the best range of motion and stability with less than 2mm gapping with medial and lateral stress and full extension without significant hyperextension. The patella was tracking with a no-thumbs technique. The trial poly was removed and once again the knee was checked for any loose, excess, or errant cement. The poly component was then inserted into position after cleaning and drying the tibial tray. The capsule was then reapproximated with a No. 1 Vicryl at multiple locations. The capsule was finally closed with a No. 2 Stratafix, barbed suture. The tourniquet was then released and the arthrotomy appeared watertight without significant bleeding. The second dosing of 1g TXA was started. Deep tissues were then reapproximated with 0 Vicryl and 2-0 Vicryl. The skin was closed with a running 3-0 Monocryl in a subcuticular fashion. This was reinforced with skin glue. A Mepilex silver dressing was applied along with a [id number] ESSIE wrap. A CryoCuff was applied. Ijeoma was transferred to the hospital bed wi thout difficulty an suffering no apparent complication. Ijeoma has a good prognosis. Physical therapy will start today and without restrictions, weight-bearing as tolerated. Aspirin 81mg BID will be used for DVT prophylaxis. Date of Procedure: 08/30/24
[2024-08-30] MEDS: ceFAZolin 2 GM/50 ML BAG IVPB (11:04)
[2024-08-30] MEDS: TRANEXAMIC ACID/SOD. CHL. 1,000 MG/100 ML BAG 600 MG IVPB (11:11)
--- NOTE | 2024-08-30 14:42 | PT.INIE ---
PT Notes Visit Reasons: Right knee DJD Physical Therapy Day Surgery Initial Evaluation Date: 08/30/2024 Referring Doctor: WILMAN Quinonez PT Orders: PT CONSULT: S/P Ortho surgery Precautions: WBAT on the right LE with AD. Patient Profile/Admitting Diagnosis: Ijeoma is a 79-year-old female with degenerative joint disease of the right knee and status post right total knee arthroplasty on postoperative day 0. PMHX: Medical History (Updated 05/23/24 @ 16:30 by WILMAN Dukes) Basal cell carcinoma Tubular adenoma of colon GERD (gastroesophageal reflux disease) Surgical History S/P colonoscopy (09/2023) biopsies S/P cystoscopy (02/15/18) S/P trigger finger release (01/12/18) Left thumb 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) Social History/Home Situation: Loves gardening. Independent with all aspects of ADLs prior to surgery although with increasing difficulty during mobility performance due to worsening arthritis. Has 3 steps to get into the house and a flight of steps to the second floor of the house where the bedroom is. Equipment Owned/DME: None Subjective: Denied headache, chest pain, and lightheadedness throughout session. Patient verbalized having fallen a week ago while in the bathroom. Objective: General Observation: Resting in bed. Minesh wraps to right LE. Cryo/Cuff to right knee. Contusion to bilateral periorbital area from a fall a week ago. Mental Status: A and O x 4 Pain: 2?3/10 pain in the right knee that diminished with ambulation ROM: Right Lower Extremity: Hip flexion WFL. Hip abduction WFL. Knee flexion about 20 degrees to 90 degrees. Knee extension -20 degrees ankle dorsiflexion WFL. Ankle plantarflexion WFL. Left Lower Extremity: Hip flexion WFL. Hip abduction WFL. Knee flexion WFL. Ankle dorsiflexion WFL. Ankle plantarflexion WFL. Strength: Right Lower Extremity: Hip flexors 4/5. Hip abductors 4/5. Knee flexors 3-/5. Knee extensors 3-/5. Ankle dorsiflexors 4-/5. Ankle plantarflexors 4-/5. Left Lower Extremity:Hip flexors 5/5. Hip abductors 5/5. Knee flexors 5/5. Knee extensors 5/5. Ankle dorsiflexors 5/5. Ankle plantarflexors 5/5. Sensation: Intact as to pain and light pressure in bilateral lower extremities Bed Mobility/Transfers: Minimal cueing provided for use of B hands as needed for support, movement sequence, AD management, and posture to reduce fall risk and minimize pain report Supine to sit stand by assist Sit to stand contact guard assist with FWW Stand to sit stand by assist Bed to chair standby assist Gait: Facilitated safe and correct performance of level surface ambulation covering a distance of 150 feet using front wheeled walker with contact-guard assist and step to gait pattern with minimal verbal cueing provided for AD management, weight distribution onto AD, safe limb sequence, and posture. Noted minimal wobbling on right knee with fatigue which was corrected with limiting step length on the right and lowering front wheeled walker to allow for better support of weight. Stairs: Guided patient with safe and correct negotiation of 3 x 4 inch steps and 2 x 6 inch steps while holding onto bilateral rails with step to gait pattern requiring contact-guard assist and minimal verbal cueing for increased knee flexion on the right during each ascent, correct limb sequence, hand placement, and posture. Balance: Static Sitting: Normal Dynamic Sitting: Normal Static Standing: Fair Dynamic Standing: Fair Special Tests: Mobility Limitations Standardized Measure [facility] AM-PAC 6 clicks Basic Mobility Inpatient Short Form: Raw Score: 22 CMS Score: 21% deficit Informed Consent/Education: Patient instructed in purpose of PT consult. Packet containing TKA exercise protocol has been given to patient. Education and training on initial set of exercises that can be done at home have been completed with patient. Trained patient with correct performance of exercises below to maximize motor control, joint flexibility, soft tissue extensibility of the R knee musculature: Access Code: [email or web address] URL: [email or web address] Date: 08/30/2024 Prepared by: Ida Graves Exercises - Supine Quad Set - 1 x daily - 7 x weekly - 1 sets - 10 reps - 5 hold - Supine Heel Slide - 1 x daily - 7 x weekly - 1 sets - 10 reps - 5 hold - Supine Ankle Pumps - 1 x daily - 7 x weekly - 1 sets - 10 reps - 5 hold - Small Range Straight Leg Raise - 1 x daily - 7 x weekly - 1 sets - 10 reps - 5 hold - Seated March - 1 x daily - 7 x weekly - 1 sets - 10 reps - 5 hold Assessment: Patient requires the use of a front wheeled walker for all mobility ADL performance to maximize independence, minimize pain, and reduce fall risk. Patient presents with clinical signs and symptoms consistent with current/admitting diagnoses that have resulted to mobility limitations, gait instability, generalized weakness, and impairment of motor control as demonstrated by the following impairment level findings: 1. Decreased strength to right knee major muscle groups 2. Impaired standing balance 3. Limitation of joint range of motion in right knee Impairments are contributing to the following functional limitations: 1. Inability to safely ambulate without assistive device 2. Increase completion time for mobility ADL performance 3. Increased fall risk Patient is assessed as a 53441 moderate complexity based on the following: History: 79-year-old female with impairment level findings, functional limitations, and past medical history as indicated above Examination: Demonstrable impairment in strength, balance, and mobility level with underlying impairments and functional limitations as documented above Presentation: Evolving Decision Makin moderate complexity Goals: N/A. PT evaluation and 1-2 treatment sessions only for functional mobility training using recommended AD and for HEP instruction. Plan of Care/Treatment Plan: N/A. PT evaluation and 1-2 treatment session only for functional mobility training using recommended AD and for HEP instruction. DISCHARGE RECOMMENDATIONS: Home when medically cleared by orthopedic surgeon. Recommend outpatient PT services in order to optimize functional mobility outcomes and facilitate return to independent community ambulation without an assistive device. TREATMENT CODE/TIME: 55079 x 20 minutes for 1 unit, 69959 x 21 minutes for 1 unit (14: 42?15: 23). Thank you for the opportunity to participate in the care of this patient. Ida Graves PT, DPT, CLT [facility] [place], [place]
--- NOTE | 2024-08-30 15:25 | W.ANESPOSTOP ---
Postoperative Evaluation Date, Time and Location Date Performed: 08/30/24 Time Performed: 15:26 Patient Location: Day Surgery Unit Vital Signs Most Recent Imported Vital Signs: Most Recent Vital Signs Temp Pulse Resp BP Pulse Ox 36.6 C 75 16 158/78 H 98 08/30/24 14:02 08/30/24 14:02 08/30/24 14:02 08/30/24 14:02 08/30/24 14:02 Pain Score Most Recent Pain Score: Most Recent Pain Score Pain Level 0 08/30/24 14:02 Assessment Mental Status: Awake (Alert & Oriented to Patient Baseline) Airway and Respiratory Function: Patent airway with normal (patient baseline) respiratory exam Cardiovascular Function: Hemodynamically Stable Hydration Status: Adequately Hydrated Nausea & Vomiting: No Nausea or Vomiting Pain: Pain is tolerable per patient Peripheral Nerve Block: Regional nerve block not resolved at time of post operative discharge
--- NOTE | 2024-08-30 16:55 | W.ANESNERVE ---
Nerve Block Single Injection Procedure Date and Time Date Performed: 08/30/24 Procedure Start: 10:28 Location Where Procedure Performed Procedure Location: Day Surgery Unit Reason Performed: Postoperative Analgesia Requesting Provider: See Malloy Timeout Performed Timeout Performed: Yes Monitoring Used ECG, Blood Pressure and SpO2 Sterility Sterility: Hand Hygiene, Surgical Cap, Surgical Mask, Sterile Gloves and Chlorhexidine Sedation Given During Procedure Sedation Given (Indicate Dose Given): No Sedation given Patient Mental Status Patient Mental Status: Awake Nerve Block 1st Nerve Block: Laterality: Right Block Type: Adductor Canal Ultrasound Image Saved?: Yes Needle / Catheter Used: 100mm SonoPlex II Local Anesthetic Bolus (Indicate Dose Given): Injected in 3-5ml increments after negative blood aspiration and Bupivacaine 0.25% Dose:: 20 ml Additives (Indicate Dose Given): None and Normal Saline Ultrasound: Sterile probe cover and gel used Nerve Stimulator: Supplement to Ultrasound use and No twitch or parasthesia noted < 0.5 mA Paresthesia: None Procedure Tolerated: No Complications and Patient tolerated well Procedure Outcome: Successful Performed By: Cornell Spencer
== END 2024-08-30 15:42 | disposition home or self-care (01) ==
LOC: SUR 08:20
PROVIDERS: PCP Nurse Practitioner Family; Visit Provider Student in an Organized Health Care Education/Training Program
PROC: (CPT 27447; principal; 2024-08-30 10:45)
DX: M17.11 Unilateral primary osteoarthritis, right knee (principal); G89.18 Other acute postprocedural pain; M25.561 Pain in right knee; R73.03 Prediabetes; G47.00 Insomnia, unspecified; E78.5 Hyperlipidemia, unspecified; K21.9 Gastro-esophageal reflux disease without esophagitis
CPT/HCPCS: 27447; 64447; 97162; 97530; C1776; J0665; J0690; J1100; J2250; J2371; J2401; J2405; J2704

== ENCOUNTER 2024-09-12 15:57 | Outpatient (CLI) | payer MEDICARE, BC, SELFPAY ==
--- NOTE | 2024-09-12 12:45 | DI.RAD_ITS ---
Exam(s) XR KNEE RT 1V XR STANDING ALIGNMENT EXAM: XR STANDING ALIGNMENT and XR knee RT 1 V CLINICAL HISTORY: 1ST POST OP S/P R TKA. TECHNIQUE: 2D digital imaging was performed. Five images were obtained. COMPARISON: CR XR STANDING ALIGNMENT from 08/21/2023 CR XR KNEE RT 2V AP,LAT from 08/21/2023 XA XR RETROGRADE IN OR from 09/28/2023 FINDINGS: BONES: The hips are well maintained. There is a stable prior left total knee arthroplasty. Since prior examination the patient has undergone a right total knee arthroplasty. The orthopedic hardwa re appears in good position. No lucencies are seen around the orthopedic hardware. The ankles are w ell maintained.There is a well-circumscribed lucency seen in the distal femur. This may be postsurgi richi. This was not present on the prior examination. Please correlate with the surgical history. No other lucencies are seen in the bones. The right patella appears slightly inferiorly located relati ve to the left patella. Please correlate for any findings to suggest extensor injury. SOFT TISSUE: Normal. IMPRESSION: Interval placement of a right total knee arthroplasty. The patella appears slightly more inferiorly located on the right compared to the left. Please correlate for any findings to suggest extensor inj ury on physical exam. Follow-up as clinically appropriate. DATA REPOSITORY: RADIATION DOSE DELIVERED:
== END 2024-09-12 15:58 | disposition home or self-care (01) ==
LOC: DIORS 15:57
PROVIDERS: PCP Nurse Practitioner Family; Visit Provider Student in an Organized Health Care Education/Training Program
DX: Z96.651 Presence of right artificial knee joint (principal); Z47.1 Aftercare following joint replacement surgery
CPT/HCPCS: 99024; 73560; 77073

== ENCOUNTER → 2024-10-03 09:54 | Outpatient (BNVA) | payer MEDICARE, BC, SELFPAY | PROVIDERS: PCP Nurse Practitioner Family; Referring Provider Nurse Practitioner Family; Visit Provider Nurse Practitioner Gerontology | DX: R31.29 Other microscopic hematuria (principal) | CPT/HCPCS: 81003; 99213 ==

== ENCOUNTER 2024-10-03 12:04 | Outpatient (REF) | payer MEDICARE, BC, SELFPAY ==
[2024-10-03 13:16] LABS: Bilirubin Negative (Negative); Blood Small (Negative); Clarity Clear (Clear); Glucose Negative (Negative); Ketones Negative (Negative); Leukocyte Esterase Negative (Negative); Nitrite Negative (Negative); Urobilinogen 0.2 mg/dL (Up to 0.2)
[2024-10-03 13:20] LABS: Bacteria Few HPF (Negative); C & S Indicated? No; Casts Negative LPF (Negative); Crystals Negative HPF (Negative); Epithelial Cells Rare HPF (Negative); Mucus Trace (Negative); WBC 0-2 HPF (0-5)
== END 2024-10-03 12:05 | disposition home or self-care (01) ==
LOC: LBN 12:04
PROVIDERS: PCP Nurse Practitioner Family; Visit Provider Nurse Practitioner Gerontology
DX: R31.29 Other microscopic hematuria (principal)
CPT/HCPCS: 81003; 81015

== ENCOUNTER → 2024-10-10 13:11 | Outpatient (BNVA) | payer MEDICARE, BC, SELFPAY | PROVIDERS: PCP Nurse Practitioner Family; Referring Provider Nurse Practitioner Family | DX: Z47.1 Aftercare following joint replacement surgery (principal); Z96.651 Presence of right artificial knee joint | CPT/HCPCS: 99024 ==

== ENCOUNTER 2024-10-15 17:12 | Outpatient (REF) | payer MEDICARE, BC, SELFPAY ==
[2024-10-15 16:44] LABS: Bacteria Few HPF (Negative); C & S Indicated? C&S Done As Ordered; Casts Negative LPF (Negative); Crystals Negative HPF (Negative); Epithelial Cells Rare HPF (Negative); Mucus Negative (Negative); Other Cells Rare Transitional (Negative); RBC 0-2 HPF (0-2); WBC >50 HPF (0-5)
== END 2024-10-15 17:13 | disposition home or self-care (01) ==
LOC: LBN 17:12
PROVIDERS: PCP Nurse Practitioner Family; Visit Provider Physician Assistant Medical
DX: R30.0 Dysuria (principal); B96.29 Other Escherichia coli [E. coli] as the cause of diseases classified elsewhere
CPT/HCPCS: 87077; 81015; 87086; 87186

== ENCOUNTER → 2024-11-28 13:17 | Outpatient (BNVA) | payer MEDICARE, BC, SELFPAY | PROVIDERS: PCP Nurse Practitioner Family; Referring Provider Nurse Practitioner Family; Visit Provider Student in an Organized Health Care Education/Training Program | DX: Z47.1 Aftercare following joint replacement surgery (principal); Z96.651 Presence of right artificial knee joint | CPT/HCPCS: 99024 ==

== ENCOUNTER → 2025-03-27 08:42 | Outpatient (BNVA) | payer MEDICARE, BC, SELFPAY | PROVIDERS: PCP Nurse Practitioner Family; Referring Provider Nurse Practitioner Family; Visit Provider Student in an Organized Health Care Education/Training Program | DX: M76.31 Iliotibial band syndrome, right leg (principal); Z96.651 Presence of right artificial knee joint | CPT/HCPCS: 99213 ==

== ENCOUNTER → 2025-06-05 09:26 | Outpatient (BNVA) | payer MEDICARE, BC, SELFPAY | PROVIDERS: PCP Nurse Practitioner Family; Referring Provider Nurse Practitioner Family; Visit Provider Student in an Organized Health Care Education/Training Program | DX: M76.31 Iliotibial band syndrome, right leg (principal); Z96.651 Presence of right artificial knee joint | CPT/HCPCS: 99213 ==

== ENCOUNTER 2025-06-08 03:40 | Outpatient (CLI) | payer MEDICARE, BC, SELFPAY ==
--- NOTE | 2025-06-08 08:15 | DI.DEXA_ITS ---
Exam(s) XR DEXA BONE DENSITY W/WO JORGE EXAM: XR DEXA BONE DENSITY W/WO JORGE CLINICAL HISTORY: osteoporosis,postmenopausal status,z78.0 TECHNIQUE: HoloTRAFI C densitometer analysis of left hip, lumbar spine and left forearm. Lateral survey image of the thoracic and lumbar spine. COMPARISON: CR XR DEXA BONE DENSITY W/WO JORGE from 02/22/2020 CR XR DEXA BONE DENSITY W/WO JORGE from 04/16/2023 FINDINGS: Lateral view of the thoracic and lumbar spine shows no evidence of compression fractures. Bone mineral density measurements of the lumbar spine correspond to a total T- score of -1.5, in the osteopenic range. This represents a 13.3 percent increase from the prior exam. Bone mineral density measurements of the left hip correspond to a total T-score of 0.3. This represents an 18.3 percent increase from the previous exam. The femoral neck T-score is -0.9, in the normal range. Theleft forearm bone mineral density measurements correspond to a T-score of the distal 3rd of -1.7, in the osteopenic range. This is not significantly changed from the previous exam.. IMPRESSION: Osteopenia of the spine and forearm. Normal bone density of the hip.
== END 2025-06-08 04:00 ==
LOC: DI 03:40
PROVIDERS: PCP Nurse Practitioner Family; Visit Provider Nurse Practitioner Family
DX: Z78.0 Asymptomatic menopausal state (principal)
CPT/HCPCS: 77080